=== PATIENT | male | born 1950 | race Caucasian/White ===

== ENCOUNTER 2016-09-15 06:53 | Day surgery (SDC) | payer OTHER ==
[~2016-09-15] VITALS: Ht 172.7 cm; Wt 91.7 kg
[~2016-09-15 06:53] MED LIST: ASPI-99 PO; CIPR500T4 PO; CLOP75 PO; HYDR-3533 PO; LISI-363 PO; NOVORP2 SQ; PREV30CA36 PO; TAMS0.4C67 PO; TOPR100T15 PO; ZOCO40TA PO
[2016-09-15 07:35] VITALS: BP 134/71; PULSE 64; RESP 18; TEMP 98.2; O2SAT 97
[2016-09-15 07:47] LABS: AUTOMATED NEUTROPHIL # 6.3 TH/MM3 (1.8-7.7); BASOPHIL % 0.2 % (0.0-2.0); EOSINOPHIL # 0.3 TH/MM3 (0-0.4); EOSINOPHIL % 3.1 % (0.0-4.0); HEMATOCRIT 46.6 % (39.0-51.0); HEMO FLAGS DIFF FINAL; LYMPHOCYTE # 1.8 TH/MM3 (1.0-4.8); MEAN CELL VOLUME 90.3 FL (80.0-100.0); MEAN CORPUSCULAR HEMOGLOBIN 29.6 PG (27.0-34.0); MEAN CORPUSCULAR HGB CONC 32.8 % (32.0-36.0); MONO % 11.7 % (0.0-8.0); PLATELET COUNT 204 TH/MM3 (150-450); RED BLOOD COUNT 5.16 MIL/MM3 (4.50-5.90); RED CELL DISTRIBUTION WIDTH 15.2 % (11.6-17.2); WHITE BLOOD COUNT 9.5 TH/MM3 (4.0-11.0)
[2016-09-15] MEDS ORDERED: RANI150T PO (07:50)
[2016-09-15] MEDS ORDERED: ATOR40TA16 PO (07:50)
[2016-09-15] MEDS ORDERED: LISI20TA3 PO (07:50)
[2016-09-15] MEDS ORDERED: PLAV75TA29 PO (07:50)
[2016-09-15] MEDS ORDERED: NOVO7030P2 SQ (07:50)
[2016-09-15] MEDS ORDERED: METO100T PO (07:50)
[2016-09-15] MEDS ORDERED: ASPI81TA5 PO (07:50)
[2016-09-15] MEDS ORDERED: FENO160T PO (07:50)
[2016-09-15 07:57] LABS: APTT (PATIENT) 25.4 SEC (24.3-30.1); INTERNATIONAL NORMALIZED RATIO 0.9 RATIO
[2016-09-15] MEDS ORDERED: diphenhydrAMINE HCL 50 MG CAP ONE (08:01)
[2016-09-15 08:08] LABS: POTASSIUM 4.3 MEQ/L (3.5-5.1)
[2016-09-15] MEDS ORDERED: HEPARIN-NS/PF INJ 500 ML ONE (08:21)
[2016-09-15] MEDS ORDERED: MIDAZOLAM HCL 2 MG/2 ML VIAL ONE (08:22)
[2016-09-15] MEDS ORDERED: diphenhydrAMINE HCL 50 MG CAP PO SCH (08:30)
[2016-09-15] MEDS ORDERED: NS 1000P @30 MLS/HR (KVO) IV SCH (08:30)
[2016-09-15] MEDS ORDERED: IOHEXOL 350 MG/ML 50 ML BTL (for Cath Lab) OTHER ONE (08:56)
[2016-09-15] MEDS ORDERED: HEPARIN SODIUM - IV 10,000 UNITS/10 ML VIAL ONE (09:29)
--- NOTE | 2016-09-15 10:01 | CATHPROC ---
[employer] HIS Report Study Information Study Number Admission Scheduled Start Study Start [id number] Sep 15 2016 6:53AM 09/15/2016 Sep 15 2016 8:19AM [place] Service Cardiac Catheterization Admit Source Facility Department Other [facility] - [facility] Physician and Clinical Staff Initial MD Puckett, Yunior [employer] Driver Carlton RN, Ernst RecordKarime Reynoso,RT(R) (BS) Scrub Jose Machado RCIS(BS) Procedures Performed Procedure Location (Site) Vessel Name Coronary Angiograms LCA Left Coronary Coronary Angiograms RCA Right Coronary Wire insertion Fem Art (right) Femoral Art Equipment Time Hardware Developer Description Size Mfg Part Number Used/Scraped [id number] 08:20 MANCER[employer] [place] SWAN NO CATHETER FR 7 Used *[id number] TRANSDUCER, TRUWAVE [id number] 08:20 MANC[employer] [place] * Used W/STOCKCOCK *[id number] TRANSDUCER, TRUWAVE [id number] 08:20 MANC[employer] [place] * Used W/STOCKCOCK *[id number] 09:41 CARD[employer] MEDICAL VASCADE, FR6 CLOSURE SYSTEM FR 6\7 Used *[id number] 09:44 C[employer] MEDICAL VASCADE, FR6 CLOSURE SYSTEM FR 6\7 Used *[id number]- INTRODUCER SET, 08:20 [employer] FR 5 SC-NT-U-SST Used MICROPUNCTURE, STIFFENED *[id number] 534-545T *[id number] 534-545T *[id number] 534-546T *[id number] 534-520T *[id number] 534-521T *[id number] WIRE, AMPLATZ SUPER STIFF 09:17 [employer] .035 37825 *[id number] Used STRT [id number] 08:20 [employer] INDUSTRIES PACK, CCL CUSTOM * Used *[id number] 08:20 [employer] MEDICAL WIRE, 3MMJ .035 180CM 180CM Used *[id number] 08:20 NAMIC MANIFOLD, 2 PORT * Used *[id number] 08:20 NAMIC MANIFOLD, 4 PORT * Used *[id number] 08:20 [employer] OMNIPAQUE, 350 MG, 150ML 150ML [id number] Used [id number] 08:20 ROD [employer] BLANKET,WARM AIR CCL * Used *[id number] 08:20 TERUMO MEDICAL SHEATH, FR5 TERUMO (10CM) FR 5 [id number] Used 09:24 [employer]UM[employer] MEDICAL SHEATH, FR6 TERUMO (10CM) FR 6 [id number] Used 08:20 TERUMO MEDICAL SHEATH, FR7 TERUMO (10CM) FR 7 [id number] Used 09:36 [employer] PIGTAIL DUAL LUMEN CATHETER FR 6 5577 *[id number] Used Equipment Model, Serial, Lot Number and Expiration Data Description Model Number Serial Number Lot Number Expiration Date WIRE, AMPLATZ SUPER STIFF STRT [id number] 11-06-2018 History: Current Medications Medication Dosage/Unit Route Frequency Last Date/Time Taken Statins (any) Beta North ASA PLAVIX History: Allergies Allergy Reaction *MDRO Multi-Drug Resistant Organism Clindamycin NOT AVAILABLE -ENTERED PER MD COLIN History: Risk Factors Family History of Hypertension Dyslipidemia Previous [place] Previous Heart Failure Premature CAD Yes Yes No Yes No Prior Valve Prior PCI Prior PCIDate Prior CABG Surgery No Yes 11/12/2014 No Cerebrovascular Peripheral Artery Chronic Lung On Dialysis Diabetes Diabetes Therapy Disease Disease Disease No Yes No No Yes Insulin History: Stress Tests Stress or Imaging Studies Performed No History: Other Current Smoker Method Quit Packs a Day Years Used Pack Years No Cigarettes 35 Years Ago 2 20 40 Labs Hgb (g/dl) Hct (%) WBC (l/cumm) Platelets (thousands) 11.60-17.00 35.00-51.00 4.00-11.00 150.00-450.00 15.3 46.6 9.5 204 Glucose (mg/dl) BUN (mg/dl) Creatinine (mg/dl) BUN:Creatinine (1:x) 74.00-106.00 7.00-18.00 0.50-1.30 10.00-20.00 176 35 1.7 20.6 Na (meq/l) K (meq/l) 136.00-145.00 3.50-5.10 137 4.3 INR (PTT:PT) 0.90-1.10 0.9 CPK-MB (ng/ML) 0.50-3.60 Not Drawn Medication Medication Total Dose (Bolus/Oral) Medication Total Dosage/Unit 1% XYLOCAINE 20 mL FENTANYL 100 mcg HEPARIN 2500 units VERSED 2 mg Medications (Bolus/Oral) Medication Time Given Dosage/Unit Administered By Reason VERSED 09/15/2016 8:57:51 AM 2 mg Ernst Vincent RN 2 mg VERSED given in lab by Ernst Vincent RN in Left Antecubital via Peripheral IV. 1% XYLOCAINE 09/15/2016 8:58:43 AM 20 mL Hu-Eleazar, Yunior 20 mL 1% XYLOCAINE given in lab by Italo Yunior in Right Groin via Subcutaneous. FENTANYL 09/15/2016 8:58:46 AM 50 mcg Ernst Vincent RN 50 mcg FENTANYL given in lab by Ernst Vincent RN in Left Antecubital via Peripheral IV. FENTANYL 09/15/2016 9:12:46 AM 50 mcg Carlton BANDA, Ernst 50 mcg FENTANYL given in lab by Ernst Vincent RN in Left Antecubital via Peripheral IV. HEPARIN 09/15/2016 9:30:40 AM 2500 units Ernst Vincent RN 2500 units HEPARIN given in lab by Ernst Vincent RN in Left Antecubital via Peripheral IV. Medication (Drip) Medication Time Given Dosage/Unit Concentration/Unit Diluent (ml) Solution IV Solutions 09/15/2016 8:27:35 AM 0 mL (IV) 500 NaCl .9 IV Solutions given in lab by Ernst Vincent RN in Left Antecubital via Peripheral IV. Pump/Drip Flow = 20 ml/hr using NaCl .9. IV Solutions 09/15/2016 8:45:15 AM 0 mL (IV) 500 NaCl .9 IV Solutions given in lab by Ernst Vincent RN in Left Antecubital via Peripheral IV. Pump/Drip Flow = 175 ml/hr using NaCl .9. Initial Case Assessment Cardiovascular HR Rhythm NIBP Chest Pain 62 reg 139/76 0 Edema Present Skin color Skin None Normal Warm Dry Circulatory - Right Pulses Dorsalis Pedis Femoral 1 2 Scale (0,1,2,3,4,d) Circulatory - Left Pulses Dorsalis Pedis Femoral 1 2 Scale (0,1,2,3,4,d) Circulatory - Lower Extremities Color Lower Right Color Lower Left Normal Normal Neurological State Oriented to time-place- Alert Moves all extremities person Respiration - General Respiration Rate SpO2 (%) (B/min) 12 97 Chronological Log Time Study Chronological Log 8:27:15 Patient arrived via Bed. 8:27:16 Patient Name, D.O.B, / Armband Verified By R.N. 8:27:17 Consent signed by the physician and the patient and verified by the Right Of [facility] Man staff. 8:27:17 Pre-op and post- op instructions given; patient acknowledges understanding of instructions. 8:27:19 Verbal Stimulation=2 Physical Stimulation=2 Airway=2 Respiration=2 TOTAL=8. (0=absent, 1=li mited, 2=present) 8:27:23 Presedation assessment performed by Right Of Way Man RN. 8::27 Patient has been NPO for More than 6Hrs. 8:27:29 Skin Breakdown none per pt 8:27:32 Patient Warmer Placed on the Table. 8:27:34 [employer] [employer] Protected 8:27:34 A # 20 IV was noted in the Antecubital (left). Grade = 0 IV Solutions given in lab by Ernst Vincent RN in Left Antecubital via Peripheral IV. Pump/Drip F low = 20 ml/hr using NaCl 8:27:35 .9. 8:27:36 History and physical on the chart or being dictated. Assessment: Initial Case, HR=62 BPM, Rhythm=reg, IJAW=265/76 mmhg, Chest Pain=0, Edema=None, Col or=Normal, Skin = Warm, Dry Right Pulses: Meng Ped=1, Femoral=2 Left Pulses: Meng Ped=1, Femoral=2 8:27:38 Lower Right Extremities: Color=Normal Lower Left Extremities: Color=Normal Neurological: State=Alert, Ox3, KEANE Respiration: Resp=12 B/min, SpO2=97 % Vitals capture started with the following parameters, Patient=Adult, Interval=5 min, Initial Pre gdxxx=778 mmHg, 8:34:47 Deflation Rate=5 mmHg 8:35:11 Reference ECG taken 8:36:01 HR=62 bpm, HHGV=695/76 mmhg, SpO2=97.0 %, Resp=9 B/min, Pain=0, Vane=10, Chi=2 8:40:17 HR=62 bpm, OHII=093/80 mmhg, SpO2=97.0 %, Resp=11 B/min, Pain=0, Vane=10, Chi=2 8:41:21 Bilateral groins prepped with 2% chlorhexidine, and with a 3 min. waiting time. IV Solutions given in lab by Ernst Vincent RN in Left Antecubital via Peripheral IV. Pump/Drip Fl ow = 175 ml/hr using 8:45:15 NaCl .9. 8:45:20 HR=62 bpm, MGBM=472/76 mmhg, SpO2=97.0 %, Resp=6 B/min, Pain=0, Vane=10, Chi=2 8:46:01 paged 8:46:41 Pressure channel 1 zeroed. 8:47:04 MD responded 8:48:39 MD arrived 8:48:51 Pressure channel 2 zeroed. 8:50:21 HR=62 bpm, POBE=079/79 mmhg, SpO2=97.0 %, Resp=7 B/min, Pain=0, Vane=10, Chi=2 8:55:22 HR=62 bpm, FGGX=585/73 mmhg, SpO2=96.0 %, Resp=14 B/min, Pain=0, Vane=10, Chi=2 Time Out. Correct patient, correct procedure,correct physician, power injector not loaded with c ontrast with surgical 8:55:45 team present. Time Out Concurred by , individual staff in procedure 8:56:00 Case Start 8:57:51 2 mg VERSED given in lab by Ernst Vincent RN in Left Antecubital via Peripheral IV. 8:58:43 20 mL 1% XYLOCAINE given in lab by Yunior Puckett in Right Groin via Subcutaneous. 8:58:46 50 mcg FENTANYL given in lab by Ernst Vincent RN in Left Antecubital via Peripheral IV. 9:00:21 HR=67 bpm, LPOA=034/74 mmhg, SpO2=94.0 %, Resp=12 B/min, Pain=0, Vane=10, Chi=2 9:02:13 Access site was Right Femoral Artery. A INTRODUCER SET, MICROPUNCTURE, STIFFENED FR 5 was advanced into the Fem Art (right) using the 9:02:20 Percutaneous technique. A SHEATH, FR5 TERUMO (10CM) FR 5 was exchanged in the Fem Art (right). This was necessary in ord er to 9:02:44 accomodate a larger catheter. 9:03:25 Access site was Right Femoral Vein. A INTRODUCER SET, MICROPUNCTURE, STIFFENED FR 5 was advanced into the Fem Art (right) using the 9:03:32 Percutaneous technique. A SHEATH, FR7 TERUMO (10CM) FR 7 was exchanged in the Fem Vein (right). This was necessary in or michael to 9:03:37 accomodate a larger catheter. 9:03:55 A SWAN NO CATHETER FR 7 was inserted via Fem Vein (right) 9:05:27 HR=58 bpm, ATUD=311/65 mmhg, SpO2=91.0 %, Resp=18 B/min, Pain=0, Vane=10, Chi=2 Recorded Pressure: PCW, HR=66, Condition=Condition 1 9:07:14 (Pulmonary Capillary Wedge) PCW 1614/13 9:08:31 Saturation: Site=PA (Pulmonary Artery) , O2=77.9 %, Hgb=15.3 gm/dl, Condition=Condition 1. U sed in calculation. Recorded Pressure: MPA, HR=65, Condition=Condition 1 9:08:50 (Main Pulmonary Artery) MPA 3020 Recorded Pressure: RV, HR=65, Condition=Condition 1 9:09:24 (Right Ventricle) [place] [address] Recorded Pressure: RA, HR=69, Condition=Condition 1 9:09:43 (Right Atrium) RA 9:10:28 HR=63 bpm, CEWI=777/73 mmhg, SpO2=97.0 %, Resp=15 B/min, Pain=0, Vane=10, Chi=2 9:10:30 Saturation: Site=RA (Right Atrium) , O2=80.9 %, Hgb=15.3 gm/dl, Condition=Condition 1. Used in calculation. 9:11:00 Saturation: Site=FA (Femoral Artery) , O2=97.8 %, Hgb=15.3 gm/dl, Condition=Condition 1. Use d in calculation. 9:11:09 [place] No Catheter Removed A JR 4.0 INFINITI CATHETER FR 5 was advanced over a wire. OMNIPAQUE, 350 MG, 150ML 150ML was use d for 9:11:40 injections. 9:12:46 50 mcg FENTANYL given in lab by Ernst Vincent RN in Left Antecubital via Peripheral IV. Recorded Pressure: Ao, HR=65, Condition=Condition 1 9:13:05 (Aorta) Ao 114/67/86 9:13:33 The RCA was injected and visualized at various angles. OMNIPAQUE, 350 MG, 150ML 150ML used. 9:14:37 Catheter was removed A JL 4.0 INFINITI CATHETER FR 5 was advanced over a wire. OMNIPAQUE, 350 MG, 150ML 150ML was use d for 9:14:39 injections. 9:15:27 HR=67 bpm, UEFA=199/77 mmhg, SpO2=96.0 %, Resp=14 B/min, Pain=0, Vane=10, Chi=2 9:16:51 The LCA was injected and visualized at various angles. OMNIPAQUE, 350 MG, 150ML 150ML used. 9:19:27 A WIRE, 3MMJ .035 180CM 180CM was inserted via Fem Art (right). 9:19:57 Wire removed 9:20:22 HR=69 bpm, SYCH=108/79 mmhg, SpO2=94.0 %, Resp=9 B/min, Pain=0, Vane=10, Chi=2 9:21:39 Catheter was removed A SHEATH, FR6 TERUMO (10CM) FR 6 was exchanged in the Fem Art (right). This was necessary in ord er to 9:24:51 accomodate a larger catheter. 9:25:21 HR=71 bpm, OZEK=439/69 mmhg, SpO2=97.0 %, Resp=12 B/min, Pain=0, Vane=10, Chi=2 A AL 1 INFINITI CATHETER FR 5 was advanced over a wire. OMNIPAQUE, 350 MG, 150ML 150ML was used for 9:25:23 injections. 9:26:32 A WIRE, AMPLATZ SUPER STIFF STRT .035 was inserted via Fem Art (right). 9:30:26 HR=67 bpm, FGYU=202/64 mmhg, SpO2=96.0 %, Resp=13 B/min, Pain=0, Vane=10, Chi=2 9:30:29 After removing the current catheter a catheter was advanced over a WIRE, AMPLATZ SUPER STIFF STRT .035. 9:30:40 2500 units HEPARIN given in lab by Ernst Vincent RN in Left Antecubital via Peripheral IV. A AL 2 INFINITI CATHETER FR 5 was advanced over a wire. OMNIPAQUE, 350 MG, 150ML 150ML was used for 9:31:11 injections. 9:35:19 HR=67 bpm, GUZY=303/61 mmhg, SpO2=96.0 %, Resp=14 B/min, Pain=0, Vane=10, Hci=2 9:35:20 Catheter was removed A PIGTAIL DUAL LUMEN CATHETER FR 6 was advanced over a wire. OMNIPAQUE, 350 MG, 150ML 150ML was used for 9:36:12 injections. 9:37:06 Wire removed Recorded Pressure: LV, Ao, HR=68, Condition=Condition 1 9:39:20 (Left Ventricle) LV 168/11/19, (Aorta) Ao 119/67/87 9:39:46 Catheter was removed 9:40:13 Activated Clotting Time Drawn 9:40:59 HR=68 bpm, KOVA=313/77 mmhg, SpO2=97.0 %, Resp=13 B/min, Pain=0, Vane=10, Chi=2 9:41:45 An injection in the Fem Art (right) was made through the SHEATH, FR6 TERUMO (10CM) FR 6. 9:42:06 VASCADE, FR6 CLOSURE SYSTEM FR 6\7 placement in the Fem Vein (right) 9:43:12 VASCADE, FR6 CLOSURE SYSTEM FR 6\7 placement in the Fem Art (right) 9:43:44 ACT (Normal Range 90-180) = 176 9:45:27 HR=65 bpm, ROBM=757/79 mmhg, SpO2=96.0 %, Resp=12 B/min, Pain=0, Vane=10, Chi=2 9:48:14 Case End 9:48:31 Catheter(s) removed without difficulty 9:48:36 No case complications noted. 9:48:37 Cine recording checked. 9:48:47 Bedside Report will be given. 9:49:06 Implantable Device card placed in patient's chart. 9:49:30 Contrast Scanned 9:49:32 A Left and Right Heart Cath was performed. 9:49:41 Sterile dressing applied to site 9:50:28 ELJM=766/81 mmhg, Pain=0, Vane=10, Chi=2 9:50:35 Vitals capture stopped. 9:53:42 Patient moved to [facility] End Study - Contrast Media Used In Study Contrast Total Opened (mL) Total Used (mL) Total Wasted (mL) Omnipaque 19 19 0 End Study - Maximum Contrast Load Max Contrast Load (mL) 270.1 End Study - Radiation Exposure Fluoro Time (minutes) 14.1 End Study - Patient Disposition Complications Transferred To Interventional Outcome No Right Of Way Man Holding No attempt made
[2016-09-15] MEDS ORDERED: BACITRACIN OINT 0.9 GM PKT TOP ONE (10:15)
[2016-09-15] MEDS ORDERED: ATROPINE SULFATE 1 MG/ML VIAL IV PRN (10:15)
[2016-09-15] MEDS ORDERED: MISC INFORMATION XX ONE (10:15)
[2016-09-15] MEDS ORDERED: LIDOCAINE HCL 1% 50 ML VIAL INFIL PRN (10:15)
[2016-09-15] MEDS ORDERED: ONDANSETRON HCL 4 MG/2 ML VIAL IV PRN (10:15)
[2016-09-15] MEDS ORDERED: NITROGLYCERIN 2% OINT 1 GM PACKET ONE (10:21)
--- NOTE | 2016-09-15 10:51 | EKG ---
Date Performed: 09/15/2016 Time Performed: 07:38:58 PTAGE: 66 years EKG: Sinus rhythm Inferior infarct - age undetermined Lateral ST-T changes are nonspecific Abnormal ECG PREVIOUS TRACING : 08/26/2012 15.46 DOCTOR: John Medina Interpretating Date/Time 09/15/2016 10:50:13
[2016-09-15] MEDS ORDERED: SODIUM CHLOR 0.9% 1000 ML INJ 1,000 ML IV SCH (11:00)
[2016-09-15] MEDS ORDERED: NITROGLYCERIN 2% OINT 1 GM PACKET TOPICAL ONE (11:30)
--- NOTE | 2016-09-15 11:46 | MA ---
cc: LORRIE ABRAHAM DATE: September 15, 2016 PROCEDURE PERFORMED 1. Left heart catheterization. 2. Selective right and left coronary angiography. 3. Simultaneous aortic LV hemodynamics. 4. Right heart cath. INDICATION Severe aortic stenosis, preoperative evaluation. APPROACH Right transfemoral. DESCRIPTION OF PROCEDURE Consent was signed. The patient was prepped and draped in sterile fashion using 1% lidocaine for local anesthesia and a micropuncture kit a 6-Brazilian sheath was inserted into the right common femoral artery and the 8-Brazilian sheath in the right femoral vein. Selective right common femoral artery angiography was performed to confirm position of the sheath. Then we fluted the 7-Brazilian [place] into wedge, this was followed by pressure recordings, in wedge main pulmonary artery and right ventricle and right atrium with blood samples to calculate cardiac output. Then we performed selective right and left coronary angiography with a JR-4 and a JL-4 diagnostic catheters. Angiography was performed in multiple views. Then a 6-Brazilian AL-2 over a straight Amplatz wire was used to cross the valve. The Amplatz catheter was exchanged to a dual lumen pigtail catheter for a simultaneous measurements of aortic and left ventricular pressures. The patient tolerated the procedure well without complications. Estimated blood loss less than 30 ccs. Total contrast used 21 ccs. The right venous and arterial access site was closed with Vascade device. RESULTS Right heart cath wedge mean pressure was 13, main pulmonary artery 30/14 with a mean of 20. Right ventricular pressure is 35/9 with a mean of 11. Right atrial pressure is 12/9 with a mean of 9. The calculated cardiac output was 6.2. Left ventricular pressure was 168/11 with a mean of 19. The aortic pressure was 119/67 with a mean of 82. The main gradient across the aortic valve was 48. The calculated valve area using Hakki equation was 0.9. ANGIOGRAPHY 1. Right coronary artery is a dominant vessel giving off the PDA. It has mild luminal irregularities and calcification in the mid and distal portion. There is a 40% lesion in the mid segment of the right coronary artery. The PDA is patent with CONNER III flow and nonobstructive coronary artery disease. 2. Left main. It is mildly calcified, very short left main however patent. 3. Left circumflex artery has minimal irregularities and calcified. It has a small first OM and a second OM which are both patent. The circumflex has a 40% lesion of the proximal segment. 4. LAD. The LAD is calcified in its proximal portion, is a transapical vessel giving off one diagonal which is patent with nonobstructive coronary artery disease. RECOMMENDATIONS The patient has severe asymptomatic aortic stenosis with minimal coronary artery disease. Given the patient is asymptomatic at this moment we will follow up with him in 1 month in the [facility] where he will be seen by CT surgery for further discussion and possible mini AVR in the near future. MD TONI Mckoy/MUSA /10:06 AM /11:20 AM PRASHANT
--- NOTE | 2016-09-15 11:46 | RADRPT ---
EXAM DATE/TIME: 09/15/2016 10:50 [facility] COMPARISON: No previous studies available for comparison. INDICATIONS : Cerebrovascular accident. MEDICAL HISTORY : Myocardial infarction. Hypercholesterolemia. CVA. CAD. Heart murmur. GERD. HTN. Stage III chronic k idney disease. Diabetes. Melanoma. MRSA. SURGICAL HISTORY : Bilateral lasik eye surgery. Percutaneous transluminal coronary angioplasty. Right shoulder. Left kne e. Melanoma removed from back of head. ENCOUNTER: Initial ACUITY: 1 day PAIN SCORE: 0/10 LOCATION: Bilateral neck PEAK SYSTOLIC VELOCITIES (cm/sec): ICA/CCA RATIO: Right: 0.9 Left: 1.1 ICA: Right: 70 Left: 69 CCA: Right: 81 Left: 63 ECA: Right: 93 Left: 70 VERTEBRAL: Right: 33 antegrade Left: 49 antegrade Elevated flow velocities and ICA/CCA ratios have been found to correlate with increased degrees of vessel stenosis, calculated as percentage of diameter relative to a normal segment of distal ICA/CCA FINDINGS: RIGHT CAROTID: There is no evidence for a hemodynamically significant carotid stenosis. Minimal int imal hyperplasia is present with scattered calcific plaque. LEFT CAROTID: There is no evidence for a hemodynamically significant carotid stenosis. Minimal inti mal hyperplasia is present with scattered calcific plaque. VERTEBRAL ARTERIES: Flow is antegrade in both vertebral arteries. MISCELLANEOUS: There are no ancillary masses or adenopathy. CONCLUSION: Negative examination for a hemodynamically significant carotid stenosis. Anders Cuba MD FACR Anders Cuba MD FACR on September 15, 2016 at 11:42 Board Certified Radiologist. This report was verified electronically.
--- NOTE | 2016-09-15 13:23 | PD.CAR.PN ---
CVT Progress Note Subjective/Hospital Course: sts data discussed with pt RISK SCORES About the STS Risk Calculator Procedure: AV Replacement Risk of Mortality: 1.85% Morbidity or Mortality: 19.726% Long Length of Stay: 8.166% Short Length of Stay: 32.324% Permanent Stroke: 2.086% Prolonged Ventilation: 10.632% DSW Infection: 0.293% Renal Failure: 6.233% Reoperation: 8.329% Objective: Vital Signs Date Time Temp Pulse Resp B/P Pulse Ox O2 Delivery O2 Flow Rate FiO2 09/15/16 10:38 99 Room Air 09/15/16 07:35 98.2 64 18 134/71 97 Labs: Laboratory Tests Test 09/15/16 07:30 White Blood Count 9.5 TH/MM3 (4.0-11.0) Red Blood Count 5.16 MIL/MM3 (4.50-5.90) Hemoglobin 15.3 GM/DL (13.0-17.0) Hematocrit 46.6 % (39.0-51.0) Mean Corpuscular Volume 90.3 FL (80.0-100.0) Mean Corpuscular Hemoglobin 29.6 PG (27.0-34.0) Mean Corpuscular Hemoglobin 32.8 % Concent (32.0-36.0) Red Cell Distribution Width 15.2 % (11.6-17.2) Platelet Count 204 TH/MM3 (150-450) Mean Platelet Volume 8.2 FL (7.0-11.0) Neutrophils (%) (Auto) 66.0 % (16.0-70.0) Lymphocytes (%) (Auto) 19.0 % (9.0-44.0) Monocytes (%) (Auto) 11.7 % (0.0-8.0) Eosinophils (%) (Auto) 3.1 % (0.0-4.0) Basophils (%) (Auto) 0.2 % (0.0-2.0) Neutrophils # (Auto) 6.3 TH/MM3 (1.8-7.7) Lymphocytes # (Auto) 1.8 TH/MM3 (1.0-4.8) Monocytes # (Auto) 1.1 TH/MM3 (0-0.9) Eosinophils # (Auto) 0.3 TH/MM3 (0-0.4) Basophils # (Auto) 0.0 TH/MM3 (0-0.2) CBC Comment DIFF FINAL Differential Comment Prothrombin Time 10.0 SEC (9.8-11.6) Prothromb Time International 0.9 RATIO Ratio Activated Partial 25.4 SEC Thromboplast Time (24.3-30.1) Sodium Level 137 MEQ/L (136-145) Potassium Level 4.3 MEQ/L (3.5-5.1) Chloride Level 105 MEQ/L (98-107) Carbon Dioxide Level 24.0 MEQ/L (21.0-32.0) Anion Gap 8 MEQ/L (5-15) Blood Urea Nitrogen 35 MG/DL (7-18) Creatinine 1.73 MG/DL (0.60-1.30) Estimat Glomerular Filtration 39 ML/MIN (>89) Rate Random Glucose 176 MG/DL (74-106) Calcium Level 9.7 MG/DL (8.5-10.1) Result Diagram: 09/15/16 0730 09/15/16 0730 Dotty Barrow Sep 15, 2016 13:23
--- NOTE | 2016-09-15 14:39 | RADRPT ---
EXAM DATE/TIME: 09/15/2016 12:30 [facility] COMPARISON: CHEST PA & LAT, August 26, 2012, 16:11. INDICATIONS : Pre op aortic valve replacement. MEDICAL HISTORY : Myocardial infarction. Hypercholesterolemia. CVA. CAD. Heart murmur. GERD.HTN. Stage III chronic kidn ey disease. Diabetes. Melanoma. MRSA. SURGICAL HISTORY : Bilateral lasik eye surgery. Percutaneous transluminal coronary angioplasty. Right shoulder. Left kne e. Melanoma removed from back of head. ENCOUNTER: Initial ACUITY: 1 day PAIN SCORE: 0/10 LOCATION: chest FINDINGS: A single view of the chest demonstrates the lungs to be symmetrically aerated without evidence of mas s, infiltrate or effusion. The cardiomediastinal contours are unremarkable. Osseous structures are intact. CONCLUSION: No acute disease. No significant change has occurred. Leonid Hamilton MD on September 15, 2016 at 14:36 Board Certified Radiologist. This report was verified electronically.
--- NOTE | 2016-09-15 15:12 | MB ---
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 His primary care physician is Dr. Leandro Olsen. He was seen for follow-up. Primary care requested cardiac evaluation. The patient has a history of coronary artery disease with prior MS 25 years ago in [facility] where he had angioplasty x2. He was found to have a heart murmur and they did an echocardiogram on him which showed aortic peak gradient of 87 mm, mean gradient of 50, consistent with severe stenosis, EF 45-50%, and grade 1 diastolic dysfunction. We were consulted to evaluate for aortic valve replacement. His mortality risk was low. His frailty risk was low. So he has been evaluated for traditional aortic valve replacement. At this time he has been asymptomatic. PAST MEDICAL HISTORY 1. Aortic stenosis as above. 2. History of Sequeira's palsy. 3. Coronary artery disease with prior MS in 1989, PCI with repeat PCI one year later. He had an apparent stress test in 2012 which showed a fixed area in the lateral and inferior wall, questionable attenuation. 4. History of some mild aortic stenosis by echocardiogram in August 2015. 5. Remote history of CVA approximately 20 years ago which sounds more like a TIA. It lasted over a 24-hour period with no residual. 6. Colon polyps. 7. Diabetes mellitus type 2. 8. Esophageal reflux. 9. Hyperlipidemia. 10.Hypertension. 11.History of melanoma. 12.Obesity. PAST SURGICAL HISTORY 1. Prior PCI. 2. Right shoulder surgery. 3. Left knee surgery. ALLERGIES He is allergic to CLINDAMYCIN. MEDICATIONS Home meds include: 1. Aspirin 81, daily. 2. Atorvastatin 40, daily. 3. Fenofibrate 160, daily. 4. Lisinopril/hydrochlorothiazide 20/25, p.o. daily. 5. Metoprolol 100, daily. 6. NovoLog insulin sliding scale. 7. Plavix 75, daily. 8. Zantac 150, q.h.s. FAMILY HISTORY Mother at age 55 from coronary artery disease. She had an MS. Father in his late 70s from lung cancer. SOCIAL HISTORY The patient is a . Rare alcohol. Smoked for approximately 15 years two packs per day, quit 35 years ago. No illicit drugs. 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 Has one child. REVIEW OF SYSTEMS GENERAL: No night sweats, fever, heat or cold intolerance. SKIN: No psoriasis, itching or hives. HEENT: No blurred vision or hearing loss. RESPIRATORY: No shortness of breath. No pleuritic chest discomfort. CARDIOVASCULAR: No chest pain, however, he does describe sometimes after eating a large heavy meal with greasy foods he gets some left shoulder discomfort. GASTROINTESTINAL: No diarrhea, no vomiting, no constipation. GENITOURINARY: No burning, frequency, urgency. AUTO WINDER: History of TIA, remote. INTEGUMENTARY: No lesions or rashes. PHYSICAL EXAMINATION VITAL SIGNS: Blood pressure 130/70, heart rate 72, on room air. GENERAL: The patient is awake, alert, in no acute distress. HEENT: Head is normocephalic, atraumatic. Pupils are equal and reactive. Oral mucosa is pink and moist. Good dentition. NECK: Supple. No JVD. HEART: Heart sounds S1, S2. Regular rate and rhythm. There is a grade 2/6 systolic murmur best noted at the left sternal border. LUNGS: Clear to auscultation. No wheezes, rales or rhonchi. ABDOMEN: Soft, nontender. No masses or organomegaly. EXTREMITIES: No cyanosis, clubbing or edema. He does have a pressure dressing to his right groin area. LABORATORY INR is 0.9. Sodium 137, potassium 4.3, BUN 35, creatinine 1.73. Hemoglobin 15, hematocrit 46, white cell count 9.5, platelet count 204. EKG EKG shows sinus rhythm with some nonspecific ST changes in the lateral wall. IMPRESSION AND PLAN This is a very pleasant 66-year-old male with severe aortic stenosis, however, asymptomatic. The cardiac films will be evaluated by Dr. Kush Byrd. The patient's left main had 30% stenosis, the RCA 40%. Cardiac output was 6.2, wedge pressure 13. STS was calculated at 2.28. The patient will be evaluated in the office by Dr. Byrd and followed closely with Dr. Hu in regards to our valve clinic and planning for surgical intervention will be at that time. Dictated by: MICHAEL Weir Kush TALAMANTES /1:37 PM /3:15 PM
--- NOTE | 2016-09-16 18:46 | EKG ---
Date Performed: 09/15/2016 Time Performed: 10:24:18 PTAGE: 66 years EKG: Possible ectopic atrial rhythm Inferior infarct - age undetermined Lateral ST-T changes are nonspecific Early R wave transition, possibly consistent with posterior wall involvement in the infe rior wall infarct. Compared to previous tracing, there's been essentially resolution of the lateral S T segment changes, but otherwise no significant serial change Abnormal ECG PREVIOUS TRACING : 09/15/2016 07.38 DOCTOR: Zuleima Krause Interpretating Date/Time 09/16/2016 18:45:27
--- NOTE | 2016-09-21 10:20 | RSPPFT ---
DATE OF PROCEDURE: 09/15/16 COMMENTS: VOLUMES DYNAMIC: FVC and FEV1 mildly reduced. FLOWS: FEV1% and FEF 25-75 normal. IMPRESSION: Probable mild restrictive ventilatory defect with no significant airways obstruction. Full lung volumes may be helpful if clinically indicated.
== END 2016-09-15 15:00 | disposition home or self-care (01) ==
LOC: HDIC 06:53 → HDOC 06:53
PROVIDERS: ATTEND Radiology Vascular & Interventional Radiology
DX: I35.0 Nonrheumatic aortic (valve) stenosis (principal); I25.10 Atherosclerotic heart disease of native coronary artery without angina pectoris; I13.10 Hypertensive heart and chronic kidney disease without heart failure, with stage 1 through stage 4 chronic kidney disease, or unspecified chronic kidney disease; N18.3 Chronic kidney disease, stage 3 (moderate); E11.22 Type 2 diabetes mellitus with diabetic chronic kidney disease; E78.5 Hyperlipidemia, unspecified; I25.2 Old myocardial infarction; K21.9 Gastro-esophageal reflux disease without esophagitis; E66.9 Obesity, unspecified; E78.00 Pure hypercholesterolemia, unspecified; I65.29 Occlusion and stenosis of unspecified carotid artery; I67.9 Cerebrovascular disease, unspecified; Z79.4 Long term (current) use of insulin; Z85.820 Personal history of malignant melanoma of skin; Z86.73 Personal history of transient ischemic attack (TIA), and cerebral infarction without residual deficits; Z86.010 Personal history of colon polyps; Z01.810 Encounter for preprocedural cardiovascular examination; Z01.818 Encounter for other preprocedural examination
CPT/HCPCS: 71010; 80048; 85002; 85025; 85610; 85730; 93005; 93456; 93880; 94010; C1760; C1769; C1893; G0269; J1644; J2250; J3010; Q0163; Q9967

== ENCOUNTER → 2017-01-24 | Outpatient (CLI) | payer OTHER ==
[~2017-01-24] MED LIST changes: -ASPI-99 PO; +ATOR40TA16 PO; -CIPR500T4 PO; -CLOP75 PO; +ECASA81 PO; +FENO160T PO; -HYDR-3533 PO; +IOHEXOL 350 MG/ML 10 ML VIAL (for RAD DIAG) IVCONTRAST ONE; -LISI-363 PO; +LISI20TA3 PO; +METO100T PO; +NOVO7030P2 SQ; -NOVORP2 SQ; +PLAV75TA29 PO; -PREV30CA36 PO; +RANI150T PO; -TAMS0.4C67 PO; -TOPR100T15 PO; -ZOCO40TA PO
--- NOTE | 2017-01-24 12:07 | RADRPT ---
EXAM DATE/TIME: 01/24/2017 10:00 [facility] COMPARISON: No previous studies available for comparison. INDICATIONS : Aortic valve stenosis. IV CONTRAST: 95 cc Omnipaque 350 (iohexol) IV RADIATION DOSE: 12.37 CTDIvol (mGy) MEDICAL HISTORY : Cardiovascular disease. SURGICAL HISTORY : Angioplasty x 2 ENCOUNTER: Initial ACUITY: 1 day PAIN SCALE: 0/10 LOCATION: chest TECHNIQUE: Volumetric scanning was performed using a multi-row detector CT scanner. The data was post processed with a variety of visualization algorithms including full volume maximum intensity projection, multi -planar sliding thin slab reformation, curved planar reformation, and surface rendering techniques. Using automated exposure control and adjustment of the mA and/or kV according to patient size, radiat ion dose was kept as low as reasonably achievable to obtain optimal diagnostic quality images. DIC OM format image data is available electronically for review and comparison. FINDINGS: CARDIAC: The coronaries are very small and diminutive. There is enlarged plaque mid left main. Large plaque is seen the origin of the right coronary. Scattered plaque is seen throughout the right coronary into the PDA. AORTIC ROOT/VALVE: 3 valve culture identified extensive calcification present. THORACIC AORTA: There is mild dilatation of the ascending aorta to 4 mm. The descending aorta is normal in size with scattered very minimal calcific plaque. Origin of the great vessels is normal without significant s tenosis. ABDOMINAL AORTA: Scattered calcific plaque is seen in the descending aorta. The distal aorta measures 1.4 cm. Scatte red soft and hard plaque are seen just below the level of renal arteries. There is no aneurysm. CELIAC ARTERY: Celiac artery is widely patent. SMA: Superior mesenteric artery is widely patent. RIGHT RENAL ARTERY: Right renal artery is widely patent. LEFT RENAL ARTERY: Left renal artery is widely patent. RIGHT COMMON ILIAC: The right common iliac measures 7 mm the scattered plaque in the distal common and proximal external iliac.. The right common femoral at the ligament measures 6 mm. LEFT COMMON ILIAC: Scattered plaque is seen in the common iliac which measures 7 mm. At its narrowest point.. The left common femoral measures 7 mm. THORAX: There are no suspicious lung lesions identified. There is no pericardial effusion. ABDOMEN: The liver, spleen, pancreas and adrenals are unremarkable. There is symmetrical renal function. Par apelvic cysts are seen in the left kidney. Right renal cyst is noted. PELVIS: Scattered diverticuli in sigmoid colon. CONCLUSION: Small iliac vessels and distal aorta. Mild dilatation descending aorta Coronaries are small and diminutive with significant proximal disease. Anders Cuba MD FACR on January 24, 2017 at 11:44 Board Certified Radiologist. This report was verified electronically.
== END ==
LOC: HRAD 08:21
PROVIDERS: ATTEND Thoracic Surgery (Cardiothoracic Vascular Surgery)
DX: I35.0 Nonrheumatic aortic (valve) stenosis (principal)
CPT/HCPCS: 74174; Q9967

== ENCOUNTER 2017-02-10 05:30 | Inpatient (IN) | payer OTHER, MEDICARE ==
[2017-02-10] VITALS (10 sets, daily range): BP systolic 95–134; BP diastolic 48–70; PULSE 62–94; RESP 9–16; TEMP 97.7–98.6; O2SAT 95–98
[~2017-02-10] VITALS: Ht 172.7 cm; Wt 92.5 kg
[~2017-02-10 05:30] MED LIST changes: -IOHEXOL 350 MG/ML 10 ML VIAL (for RAD DIAG) IVCONTRAST ONE
[2017-02-10] MEDS ORDERED: SODIUM CHLORIDE 0.9% FLUSH 10 ML FLUSH IV FLUSH PRN ×3 (06:00→13:00)
[2017-02-10] MEDS ORDERED: DEXTROSE 50% IN WATER 50 ML VIAL(D50) IV PUSH PRN ×2 (06:00→13:00)
[2017-02-10] MEDS ORDERED: INSULIN REGULAR 100 UNITS in NS 100 ML IV PRN (06:00)
[2017-02-10] MEDS ORDERED: CHLORHEXIDINE GLUCONATE 2 % 1 PACK (2 CLOTHS) TOPICAL PRN (06:15)
[2017-02-10] MEDS ORDERED: LACTATED RINGER'S 1000 ML IV PRN (06:15)
[2017-02-10] MEDS ORDERED: ceFAZolin 2 GM PREMIX 50 ML IV SCH (06:15)
[2017-02-10] MEDS ORDERED: POVIDONE IODINE 5% (ANTISEPSIS KIT) 4 APPLICATIONS EACH NARE PRN (06:15)
[2017-02-10] MEDS ORDERED: CEFAZOLIN 500 MG in NS IRR BTL 500 ML IRRIGATION SCH (06:15)
[2017-02-10] MEDS ORDERED: METOPROLOL TARTRATE 25 MG TAB PO SCH (06:15)
[2017-02-10] MEDS ORDERED: CHLORHEXIDINE GLUCONATE 4% SOLN 120 ML BTL TOPICAL SCH (06:15)
[2017-02-10] MEDS ORDERED: SUGAMMADEX SODIUM 200 MG/2 ML VIAL IV PUSH ONE ×2 (07:06)
[2017-02-10] MEDS ORDERED: DEXMEDETOMIDINE HCL 200 MCG/2 ML VIAL ONE (07:06)
[2017-02-10] MEDS ORDERED: CUSTODIOL HTK IRR SOLN 3,000 ML ONE (07:52)
[2017-02-10] MEDS ORDERED: POTASSIUM CHLORIDE 40 MEQ/20 ML VIAL ONE (07:52)
[2017-02-10] MEDS ORDERED: HEPARIN SODIUM - IV 10,000 UNITS/10 ML VIAL ONE (07:53)
[2017-02-10] MEDS ORDERED: ALBUMIN 25% INJ 50 ML IV ONE (07:53)
[2017-02-10] MEDS ORDERED: HEPARIN SODIUM - SQ 10,000 UNITS/ML VIAL ONE ×2 (07:53→08:28)
[2017-02-10] MEDS ORDERED: SODIUM BICARBONATE 8.4% INJ 150 ML ONE (07:54)
[2017-02-10] MEDS ORDERED: CALCIUM CHLORIDE 10% SOLN 1 GRAM/10 ML SYR ONE (07:54)
[2017-02-10] MEDS ORDERED: MANNITOL INJ 100 ML ONE (07:55)
[2017-02-10] MEDS ORDERED: ceFAZolin 2 GM PREMIX 50 ML ONE (08:28)
[2017-02-10] MEDS ORDERED: BUPIVACAINE/EPINEPHRINE 0.5% PF 30 ML VIAL ONE (08:29)
[2017-02-10] MEDS ORDERED: methylPREDNISolone SOD SUCC 125 MG/2 ML VIAL ONE (08:54)
[2017-02-10] MEDS ORDERED: PROTAMINE SULFATE 250 MG/25 ML VIAL IV ONE (12:00)
[2017-02-10] MEDS ORDERED: SODIUM CHLORID 0.9% 500 ML INJ 500 ML IV ONE (12:00)
[2017-02-10] MEDS ORDERED: MAGNESIUM SULFATE 1 GM/2 ML VIAL IV ONE (12:00)
[2017-02-10] MEDS ORDERED: MIDAZOLAM HCL 2 MG/2 ML VIAL IV ONE (12:00)
[2017-02-10] MEDS ORDERED: SODIUM CHLOR 0.9% 250 ML INJ 250 ML IV ONE (12:00)
[2017-02-10] MEDS ORDERED: DEXTROSE 5% IN WATER 100 ML BAG IV ONE (12:00)
[2017-02-10] MEDS ORDERED: fentaNYL CITRATE 2500 MCG/50 ML VIAL IV ONE (12:00)
[2017-02-10] MEDS ORDERED: PHENYLEPH/NS 1000 MCG/10 ML SYR IV ONE (12:00)
[2017-02-10] MEDS ORDERED: ARTIFICIAL TEARS OPTH OINT 3.5 APPLIC/3.5 GM TUBO EACH EYE ONE (12:00)
[2017-02-10] MEDS ORDERED: PHENYLEPHRINE HCL 10 MG/ML VIAL IV ONE (12:00)
[2017-02-10] MEDS ORDERED: ePHEDrine/NS 25 MG/5 ML SYR IV ONE (12:00)
[2017-02-10] MEDS ORDERED: VECURONIUM BROMIDE 10 MG VIAL IV ONE (12:00)
[2017-02-10] MEDS ORDERED: CARDIOPLEGIC IRR 2,000 ML ONE (12:00)
[2017-02-10] MEDS ORDERED: TRANEXAMIC ACID INJ 1,000 MG/10 ML AMP IV ONE (12:00)
[2017-02-10] MEDS ORDERED: LACTATED RINGER'S 1000 ML INJ 1,000 ML IV ONE (12:00)
[2017-02-10] MEDS ORDERED: NORMOSOL R INJ 1,000 ML IV ONE (12:00)
[2017-02-10] MEDS ORDERED: HEPARIN SODIUM - SQ 10,000 UNITS/ML VIAL OTHER ONE (12:00)
[2017-02-10] MEDS ORDERED: SODIUM CHLOR 0.9% 1000 ML INJ 1,000 ML IV ONE (12:00)
[2017-02-10] MEDS ORDERED: EPINEPHrine HCL (1:1000) 1 MG/ML VIAL IV ONE (12:00)
[2017-02-10] MEDS ORDERED: LACTATED RINGER'S 1000 ML INJ 500 ML IV PRN (12:47)
--- NOTE | 2017-02-10 12:56 | PD.OP ---
cc: Yunior Puckett MD; Renee Caicedo MD Operative Report Date of Surgery: Feb 10, 2017 Preoperative Diagnosis: (1) Diastolic CHF due to valvular disease (2) Aortic stenosis Postoperative Diagnosis: same Procedure: minimally invasive AVR with a 25 Intuity tissue valve Ultrasound-guided percutaneous access left femoral artery and vein with Perclose closure of the artery ZULEIMA Anesthesia: Dr. Nj Surgeon: Renee Caicedo Technical System Analyst(s): Trevin SCHMITT Operation and Findings: Standard monitoring lines and Patel catheter were placed. General anesthesia was induced. The patient was prepped and draped in a sterile fashion. A 6 cm right anterior thoracotomy was performed and the 3rd rib was shingled. An Sumeet retractor was placed followed by a small chest retractor. The pericardium was opened and a pericardial sling was created using interrupted 0 silk sutures. A small 1 cm incision was made at the 6th intercostal space and an LV vent and pericardial suction were placed through this access port. The aorta was dissected posteriorly for crossclamp placement. The left femoral artery and vein were percutaneously accessed using ultrasound guidance. The patient was heparinized for cardiopulmonary bypass. The left femoral artery was cannulated with a 17F [employer] arterial cannula. The left femoral vein was cannulated with a 21 [employer] cannula under ZULEIMA guidance. Three Perclose devices were placed in the artery for later closure. Antegrade Custodiol cardioplegia were employed. The patient was placed on cardiopulmonary bypass. An aortic cross-clamp was applied and the heart was arrested using cold Custodiol cardioplegia delivered through a 14F catheter. The aorta was opened above the sinotubular ridge and the aortic valve was exposed. On opening the aorta, the valve appeared functionally bicuspid with heavy calcification. The valve was resected as well as all annular calcification, sized for a 25 mm Intuity tissue valve which was placed with 3, 2-0 Tycron valve sutures. The valve seated well, and was balloon deployed to 5 elizabet. The aorta was closed with running 4-0 Prolene suture. The patient systemically rewarmed and placed in Trendelenburg position. The heart was vigorously deaired with a clamp on. The clamp was removed, deairing continued. The patient was easily weaned from cardiopulmonary bypass. Decannulation was carried out without incident and both artery was secured with the Perclose sutures. The vein was controlled with manual compression. Protamine was given. There was no adverse reaction. Intraoperative ZULEIMA following the procedure showed a well-seated aortic valve with no perivalvular leak and preserved ventricular function. Wound was checked for hemostasis was obtained using electrocautery. A 32F right pleural chest tube was placed and secured to the skin with a 0 silk suture. The 3rd rib was reapproximated to the sternum with a small plate and screws. The fascia and pectoralis were closed with 0 Vicryl. The subcutaneous tissue was closed using a running 3-0 Monocryl suture. The skin was closed with 4-0 Monocryl. Sterile dressings were placed. At the end of the operation, all sponge, instruments, and needle counts were correct. The patient was transferred to the CVICU in stable condition. Renee Caicedo MD Feb 10, 2017 12:56
[2017-02-10] MEDS ORDERED: ALBUMIN 5% INJ 250 ML IV PRN (13:00)
[2017-02-10] MEDS ORDERED: ACETAMINOPHEN 650 MG SUPP RECTAL PRN (13:00)
[2017-02-10] MEDS ORDERED: POTASSIUM CHLOR 20 MEQ PREMIX 100 ML IV PRN ×3 (13:00)
[2017-02-10] MEDS ORDERED: INSULIN REGULAR (IV INFUSION) 100 UNITS in SODIUM CHLORIDE 0.9% INJ 99 ML IV PRN (13:00)
[2017-02-10] MEDS ORDERED: RESP: ALBUTEROL 2.5 MG/IPRATROPIUM 0.5 MG NEB (PRN) NEB (13:00)
[2017-02-10] MEDS ORDERED: SODIUM BICARBONATE 8.4% SOLN 50 MEQ/50 ML VIAL IV PUSH PRN ×2 (13:00)
[2017-02-10] MEDS ORDERED: ACETAMINOPHEN 325 MG TAB PO PRN (13:00)
[2017-02-10] MEDS ORDERED: hydrALAZINE HCL 20 MG/ML VIAL IV PUSH PRN (13:00)
[2017-02-10] MEDS ORDERED: METOPROLOL TARTRATE 5 MG/5 ML VIAL IV PUSH PRN (13:00)
[2017-02-10] MEDS ORDERED: Post-op Orders (for Pharmacy) MISC OTHER ONE (13:00)
[2017-02-10] MEDS ORDERED: CLEVIDIPINE INJ 50 ML IV PRN (13:00)
[2017-02-10] MEDS ORDERED: RESP: RACEPINEPHRINE 2.25% 0.5 ML NEB NEB PRN (13:00)
[2017-02-10] MEDS ORDERED: MAGNESIUM SULFATE INJ 2 GM in SODIUM CHLORIDE 0.9% INJ 100 ML IV PRN ×4 (13:00)
[2017-02-10] MEDS ORDERED: POTASSIUM CHLORIDE 20 MEQ CONTROLLED RELEASE TAB PO PRN ×2 (13:00)
[2017-02-10] MEDS ORDERED: CALCIUM CHLORIDE 10% 1 GRAM/10 ML VIAL IV PUSH PRN (13:00)
[2017-02-10] MEDS ORDERED: ONDANSETRON HCL 4 MG/2 ML VIAL IV PUSH PRN (13:00)
[2017-02-10] MEDS ORDERED: DEXMEDETOMIDINE INJ 200 MCG in SODIUM CHLORIDE 0.9% INJ 50 ML IV PRN (14:00)
[2017-02-10] MEDS ORDERED: CALCIUM CHLORIDE INJ 1 GM in SODIUM CHLORIDE 0.9% INJ 100 ML IV PRN (14:00)
--- NOTE | 2017-02-10 14:35 | RADRPT ---
EXAM DATE/TIME: 02/10/2017 13:46 [facility] COMPARISON: CHEST SINGLE AP, September 15, 2016, 12:30. INDICATIONS : Post op open heart surgery. MEDICAL HISTORY : Cardiovascular disease. SURGICAL HISTORY : Angioplasty x 2 ENCOUNTER: Initial ACUITY: 1 day PAIN SCORE: Non-responsive. LOCATION: Bilateral chest FINDINGS: The patient is post aortic valvular replacement. The endotracheal tube, left subclavian central line and right-sided chest tube are all in good position. The lungs are clear. The heart is normal in size . CONCLUSION: 1. Post surgical changes. Support equipment in good position. No acute abnormality. Negrito Cuba MD on February 10, 2017 at 14:31 Board Certified Radiologist. This report was verified electronically.
--- NOTE | 2017-02-10 14:42 | PD.CAR.PN ---
CVT Progress Note Subjective/Hospital Course: 66/ male hx of severe aortic stenosis and non obstructive CAD , LV dysfunction , he was not deemed a TAVR candidate 2/2 low mortality and fralility score . He was admitted for elective Mini AVR EF 45-50% PMH: severe , Sequeira's palsy, CAD with prior [place]/ PCI, CVA 20 yrs ago, DM, esophageal reflux, HLP, HTN surgery: 02/10 minimally invasive AVR with a 25 Intuity tissue valve Ultrasound-guided percutaneous access left femoral artery and vein with Perclose closure of the artery ZULEIMA Objective: Vital Signs Date Time Temp Pulse Resp B/P (MAP) Pulse Ox O2 Delivery O2 Flow Rate FiO2 02/10/17 06:19 98.5 63 18 135/93 (107) 98 Labs: Laboratory Tests Test 02/10/17 06:05 Nasal Screen MRSA (PCR) MRSA NOT DETECTED (NOT (1) Aortic stenosis (2) S/P AVR (aortic valve replacement) (3) Diabetes mellitus (4) Coronary artery disease (5) Hyperlipemia (6) Hypertension (7) Diastolic CHF due to valvular disease Problem Qualifiers (1) Diabetes mellitus: Dotty Barrow Feb 10, 2017 14:42
--- NOTE | 2017-02-10 14:44 | HHI.FF ---
Face to Face Verification Diagnosis: (1) Aortic stenosis (2) Diastolic CHF due to valvular disease (3) Coronary artery disease (4) Diabetes mellitus (5) Hyperlipemia (6) Hypertension (7) S/P AVR (aortic valve replacement) Home Health Nursing Order: Signs/symptoms of disease process Medication education-adverse effect Wound care and dressing changes Nursing assessment with vital signs Instructions: Heart and Vascular Surgery patients *Special attention to sternal dressing Mandatory frequency Assess and evaluation, 4 days in a row The next week 3X week 2 times a week for 4 weeks 1 time a week for 5 weeks Schedule Heart and Vascular patients for full 60 day certification period Initial visit Review Open Heart Surgery Discharge Instructions (Sternal precautions, Activity, Elastic hose, Incision care, Driving, Incentive spirometry, Smoking, [place], Work and other) Need Betadine to paint incision Medication reconciliation Importance of follow up care/ check on appointments Make calendar record temperature daily When to call [facility] nurse, review instructions, phone list Incentive Spirometry, demonstration Visit 1- Begin discharge instruction for patient family and/ or caregiver using teach back method- Signs and symptoms of infection Disease characteristics Medicines and side effects Foods and nutrition/ appetite Infection control/ hand washing/ hygiene Visit 2- Continue teaching Discharge instructions- include additional information on smoking cessation , sternal dressing (sternal vac) Visit 3- Continue teaching- Cough and deep breathing, incision monitoring. Choose my plate Visit 4- Continue teaching- Discuss limitations Discuss how they are feeling Discuss progress toward goals Remaining visits- continue teaching and monitoring Incentive spirometry Q1 hr x 10, while awake, also use acapella device hourly whole awake chest wall Precautions: NO pushing or pulling, ( pt must use chest pillow to support chest with all activities and with coughing Daily incision care: ok to shower daily, no tub bath. Wash all incisions with liquid dial soap, clean wash cloth to each site, rinse and pat dry. Observe for any signs of infection, such as drainage which is dark yellow, saleem, green or foul smelling. Immediately report to the surgeon any drainage from the chest incision, or legs, and for any abnormal drainage from the chest tube sites. Notify surgeon if any temp >101.5 degrees F. When specialty dressing removed/ or if you do not have one, continue to shower daily as above, then rinse and pat incision dry and paint with betadine daily x 5 days. Allow steri strips to fall off if you have any. Avoid lotions, creams, salves, oils, etc. for the first month For Dr. Caicedo patients , please obtain CBC, BMP, PA & Lat CXR in 2 weeks, results to Dr. Caicedo ( prescription will be given) ( ) (Tele: [phone]) , Valve replacement pts will need 2decho in 2 weeks with results to Dr. Caicedo . 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 Blanco & Dr. Caicedo), After Hours / Nights (5pm -8am) Weekends and Holidays Please call [facility] Card[facility] ([facility]) Charge Nurse I have seen patient Mango Tucker on 02/10/17. My clinical findings support the need for the requested home health care services because: Deconditioned w/ increased weakness I certify that my clinical findings support that this patient is homebound because: Post-op weakness Dotty Barrow Feb 10, 2017 14:44
[2017-02-10] MEDS: ACETAMINOPHEN 1000 MG/100 ML 100 ML IV SCH ×2 (14:50→21:18)
[2017-02-10] MEDS ORDERED: INSULIN HUMAN NPH/R 70/30 1,000 UNITS/10 ML VIAL SQ SCH (16:00)
[2017-02-10] MEDS: RESP: ALBUTEROL 2.5 MG/IPRATROPIUM 0.5 MG NEB (SCH) NEB ×2 (18:06→21:23)
[2017-02-10] MEDS: SODIUM CHLORIDE 0.9% FLUSH 10 ML FLUSH IV FLUSH SCH (21:24)
[2017-02-10] MEDS: ATORVASTATIN 40 MG TAB PO SCH (21:25)
[2017-02-11] VITALS (16 sets, daily range): BP systolic 98–142; BP diastolic 53–71; PULSE 61–82; RESP 17–20; TEMP 98–98.7; O2SAT 95–97
[2017-02-11] MEDS: oxyCODONE/ACETAMINOPHEN 5 MG/325 MG TAB PO PRN ×7 (00:17→21:49)
[2017-02-11] MEDS: RESP: ALBUTEROL 2.5 MG/IPRATROPIUM 0.5 MG NEB (SCH) NEB ×4 (04:01→21:16)
[2017-02-11] MEDS: ACETAMINOPHEN 1000 MG/100 ML 100 ML IV SCH ×2 (04:17→07:57)
[2017-02-11 05:20] LABS: MEAN CELL VOLUME 93.8 FL (80.0-100.0); MEAN CORPUSCULAR HEMOGLOBIN 31.1 PG (27.0-34.0); MEAN CORPUSCULAR HGB CONC 33.1 % (32.0-36.0); PLATELET COUNT 152 TH/MM3 (150-450); RED BLOOD COUNT 3.62 MIL/MM3 (4.50-5.90); RED CELL DISTRIBUTION WIDTH 14.2 % (11.6-17.2); REVIEW FLAG FINAL; WHITE BLOOD COUNT 14.2 TH/MM3 (4.0-11.0)
[2017-02-11 05:42] LABS: BICARBONATE 26.1 MEQ/L (21.0-32.0); POTASSIUM 3.9 MEQ/L (3.5-5.1)
[2017-02-11] MEDS: PANTOPRAZOLE SOD 40 MG DELAYED RELEASE TAB PO SCH (05:51)
--- NOTE | 2017-02-11 05:55 | RADRPT ---
EXAM DATE/TIME: 02/11/2017 04:33 [facility] COMPARISON: CHEST SINGLE AP, February 10, 2017, 13:46. INDICATIONS : Chest pain post CABG MEDICAL HISTORY : Cardiovascular disease. SURGICAL HISTORY : CABG. ENCOUNTER: Subsequent ACUITY: 2 days PAIN SCORE: 8/10 LOCATION: Bilateral chest FINDINGS: Portable AP view of the chest demonstrates a normal-sized cardiac silhouette. Endotracheal tube and n asogastric tube have been removed. Bowel replacement is visualized. Left subclavian central line and right chest tube remain present. No pneumothorax is visualized. There is linear atelectasis at the le ft lung base. CONCLUSION: Interval extubation. Right chest tube remains present and no pneumothorax is visualized. Trevin Coyne MD on February 11, 2017 at 5:53 Board Certified Radiologist. This report was verified electronically.
[2017-02-11] MEDS: ASPIRIN 81 MG CHEW TAB PO SCH (07:58)
[2017-02-11] MEDS: SODIUM CHLORIDE 0.9% FLUSH 10 ML FLUSH IV FLUSH SCH ×2 (07:58→20:40)
[2017-02-11] MEDS: FENOFIBRATE 145 MG TAB PO SCH (07:58)
--- NOTE | 2017-02-11 08:29 | PD.CAR.PN ---
CVT Progress Note CVT: POD #: 1 Subjective/Hospital Course: 66/ male hx of severe aortic stenosis and non obstructive CAD , LV dysfunction , he was not deemed a TAVR candidate 2/2 low mortality and fralility score . He was admitted for elective Mini AVR EF 45-50% PMH: severe , Sequeira's palsy, CAD with prior [place]/ PCI, CVA 20 yrs ago, DM, esophageal reflux, HLP, HTN surgery: 02/10 minimally invasive AVR with a 25 Intuity tissue valve Ultrasound-guided percutaneous access left femoral artery and vein with Perclose closure of the artery ZULEIMA 02/11/17 Doing well, c/o incisional pain Objective: Vital Signs Date Time Temp Pulse Resp B/P (MAP) Pulse Ox O2 Delivery O2 Flow Rate FiO2 02/11/17 08:21 95 Nasal Cannula 2.00 02/11/17 05:30 18 02/11/17 04:50 18 02/11/17 04:00 97 Nasal Cannula 2.00 02/11/17 04:00 98.0 64 18 115/69 (84) 97 121/55 (77) 02/11/17 03:30 61 02/11/17 01:20 18 02/10/17 23:30 63 02/10/17 23:09 94 Nasal Cannula 2.00 02/10/17 23:00 97.8 64 16 95/55 (68) 97 106/48 (67) 02/10/17 19:43 97 Nasal Cannula 2.00 02/10/17 19:30 97 Nasal Cannula 2.00 02/10/17 19:00 97.8 62 16 134/70 (91) 95 134/60 (84) 02/10/17 19:00 65 02/10/17 18:06 98 Nasal Cannula 2.00 02/10/17 15:55 98.6 02/10/17 15:00 97 Nasal Cannula 4.00 02/10/17 15:00 69 02/10/17 14:45 96 Nasal Cannula 3 02/10/17 14:45 95 Nasal Cannula 4.00 02/10/17 13:35 98.6 02/10/17 13:20 96 55 02/10/17 13:20 55 02/10/17 13:20 97.7 76 9 96/56 (69) 97 108/59 (75) 02/10/17 13:20 94 02/10/17 13:20 97 Mechanical Ventilator 55 Labs: Laboratory Tests Test 02/11/17 05:05 White Blood Count 14.2 TH/MM3 (4.0-11.0) Red Blood Count 3.62 MIL/MM3 (4.50-5.90) Hemoglobin 11.3 GM/DL (13.0-17.0) Hematocrit 34.0 % (39.0-51.0) Mean Corpuscular Volume 93.8 FL (80.0-100.0) Mean Corpuscular Hemoglobin 31.1 PG (27.0-34.0) Mean Corpuscular Hemoglobin Concent 33.1 % (32.0-36.0) Red Cell Distribution Width 14.2 % (11.6-17.2) Platelet Count 152 TH/MM3 (150-450) Mean Platelet Volume 7.8 FL (7.0-11.0) Blood Urea Nitrogen 27 MG/DL (7-18) Creatinine 1.27 MG/DL (0.60-1.30) Random Glucose 131 MG/DL (74-106) Calcium Level 8.4 MG/DL (8.5-10.1) Magnesium Level 2.0 MG/DL (1.5-2.5) Sodium Level 139 MEQ/L (136-145) Potassium Level 3.9 MEQ/L (3.5-5.1) Chloride Level 106 MEQ/L (98-107) Carbon Dioxide Level 26.1 MEQ/L (21.0-32.0) Anion Gap 7 MEQ/L (5-15) Estimat Glomerular Filtration Rate 56 ML/MIN (>89) Result Diagram: 02/11/17 0505 02/11/17 0505 Imaging: Last 24 hours Impressions Chest X-Ray 02/11/17 0500 Signed Impressions: Service Date/Time: Saturday, February 11, 2017 04:33 - CONCLUSION: Interval extubation. Right chest tube remains present and no pneumothorax is visualized. Trevin Coyne MD Cardiovascular: RRR Telemetry: NSR Pulmonary: CTA GI/: NABS Incision: dry and intact CT: ~90ml since OR Edema: Patient's left foot is slightly cooler than right foot with diminished pulses. No tenderness or decreased sensation in left foot Plan: D/C wires and chest tubes Up to chair/ambulate Remove Patel Adjust insulin U/S left groin to evaluate femoral artery. transfer to stepdown PT (1) Aortic stenosis (2) S/P AVR (aortic valve replacement) (3) Diabetes mellitus (4) Coronary artery disease (5) Hyperlipemia (6) Hypertension (7) Diastolic CHF due to valvular disease Problem Qualifiers (1) Diabetes mellitus: Renee Caicedo MD Feb 11, 2017 08:29
[2017-02-11] MEDS ORDERED: DEXTROSE 50% IN WATER 50 ML VIAL(D50) IV PUSH PRN (09:00)
[2017-02-11] MEDS ORDERED: SOD PHOSPHATE/SOD BIPHOSPHATE (ADULT) ENEMA 133ML RECTAL PRN (09:00)
[2017-02-11] MEDS ORDERED: GLUCAGON 1 MG/ML VIAL OTHER PRN (09:00)
[2017-02-11] MEDS ORDERED: BISACODYL 10 MG SUPP RECTAL PRN (09:30)
[2017-02-11] MEDS ORDERED: FUROSEMIDE 20 MG/2 ML VIAL IV PUSH ONE (09:45)
[2017-02-11] MEDS ORDERED: POTASSIUM CHLORIDE 20 MEQ CONTROLLED RELEASE TAB PO ONE (09:45)
[2017-02-11] MEDS ORDERED: INSULIN DETEMIR 100 UNITS/ML VIAL SQ ONE (09:45)
[2017-02-11] MEDS: INSULIN ASPART SUPPLEMENTAL SCALE SQ SCH ×4 (10:00→21:59)
[2017-02-11] MEDS: DOCUSATE SODIUM 100 MG CAP PO SCH ×2 (10:06→20:39)
[2017-02-11] MEDS: MULTIVITAMINS/MINERALS THERAPEUTIC TAB PO SCH (10:07)
[2017-02-11] MEDS: METOPROLOL TARTRATE 25 MG TAB PO SCH ×2 (10:08→20:39)
[2017-02-11] MEDS: MAGNESIUM HYDROXIDE SUSP 30 ML CUP PO SCH (10:08)
--- NOTE | 2017-02-11 10:24 | RADRPT ---
EXAM DATE/TIME: 02/11/2017 09:16 [facility] COMPARISON: No previous studies available for comparison. INDICATIONS : Status post femoral cannulation. Decreased arterial pulse. MEDICAL HISTORY : Myocardial infarction. Hypercholesterolemia. CVA. Coronary artery disease. Heart murmur. HTN. GERD. Chronic kidney disease, stage III. Diabetes. Melanoma. MRSA. SURGICAL HISTORY : Percutaneous transluminal coronary angioplasty. Orthopedic surgery; right shoulder, left knee. Remova l of melanoma from back of head. ENCOUNTER: Initial ACUITY: 1 day PAIN SCORE: 0/10 LOCATION: Left leg. PEAK SYSTOLIC VELOCITIES (cm/sec): EXTERNAL ILIAC ARTERY: Left: 35.1 triphasic BUILDING OFFICIAL: Left: 32.2 biphasic SUPERFICIAL FEMORAL ARTERY PROXIMAL: Left: 15.7 biphasic SUPERFICIAL FEMORAL ARTERY MID: Left: 17.2 biphasic SUPERFICIAL FEMORAL ARTERY DISTAL: Left: 16.1 biphasic POPLITEAL ARTERY: Left:12.5 biphasic PERONEAL ARTERY: Left:12.2 POSTERIOR TIBIAL ARTERY: Left:9.4 FINDINGS: Diffuse atherosclerotic plaque. No hemodynamically significant stenosis appreciated. CONCLUSION: Diffuse atherosclerotic plaque without hemodynamically significant stenosis observed. No signal appre ciated within the anterior tibial artery. Mahendra Manning Jr., MD on February 11, 2017 at 9:54 Board Certified Radiologist. This report was verified electronically.
--- NOTE | 2017-02-11 16:35 | EKG ---
Date Performed: 02/11/2017 Time Performed: 05:02:24 PTAGE: 66 years EKG: Sinus rhythm Prolonged QT interval Inferior infarct - age undetermined Possible LVH with secondary repolarization abnormality Lateral ST-T changes may be due to hypertrophy and/or ischemia Abnormal ECG Compared to PREVIOUS TRACING , lateral ST-T wave changes potentially consistent with ischemia. Clinic al correlation requested. PREVIOUS TRACIN09/15/2016 10.24 DOCTOR: Sarah Wiley Interpretating Date/Time 02/11/2017 16:33:33
[2017-02-11] MEDS: INSULIN HUMAN NPH/R 70/30 1,000 UNITS/10 ML VIAL SQ SCH (16:42)
[2017-02-11] MEDS: ATORVASTATIN 40 MG TAB PO SCH (20:39)
[2017-02-11] MEDS: SENNOSIDES 8.6 MG TAB PO SCH (20:39)
[2017-02-12] VITALS (28 sets, daily range): BP systolic 106–126; BP diastolic 60–80; PULSE 65–95; RESP 16–18; TEMP 97.6–98.9; O2SAT 93–96
[2017-02-12] MEDS: oxyCODONE/ACETAMINOPHEN 5 MG/325 MG TAB PO PRN ×7 (00:41→21:45)
[2017-02-12] MEDS: INSULIN ASPART SUPPLEMENTAL SCALE SQ SCH ×5 (03:52→21:00)
[2017-02-12] MEDS: PANTOPRAZOLE SOD 40 MG DELAYED RELEASE TAB PO SCH (05:38)
--- NOTE | 2017-02-12 06:46 | RADRPT ---
EXAM DATE/TIME: 02/12/2017 04:22 [place] COMPARISON: CHEST SINGLE AP, February 11, 2017, 4:33. INDICATIONS : Shortness of breath, possible pneumothorax. MEDICAL HISTORY : Cardiovascular disease. SURGICAL HISTORY : Aortic valve replacement ENCOUNTER: Subsequent ACUITY: 3 days PAIN SCORE: 8/10 LOCATION: Bilateral chest FINDINGS: Portable AP view of the chest demonstrates a normal-sized cardiac silhouette. Left subclavian central line remains present. The right chest tube has been removed. No pneumothorax is identified. There is a small right pleural-based opacity with blunting of the right costophrenic sulcus. Linear atelectas is versus scar is present at the left lung base. CONCLUSION: 1. No pneumothorax identified following right chest tube removal. 2. There is a small right pleural-based opacity and blunting of the right costophrenic angle. This co uld represent pleural thickening or small pleural effusion. Trevin Coyne MD on February 12, 2017 at 6:43 Board Certified Radiologist. This report was verified electronically.
[2017-02-12 06:57] LABS: AUTOMATED NEUTROPHIL # 12.2 TH/MM3 (1.8-7.7); BASOPHIL % 0.1 % (0.0-2.0); EOSINOPHIL % 0.3 % (0.0-4.0); HEMATOCRIT 34.7 % (39.0-51.0); LYMPH % 7.9 % (9.0-44.0); LYMPHOCYTE # 1.3 TH/MM3 (1.0-4.8); MEAN CELL VOLUME 94.2 FL (80.0-100.0); MEAN CORPUSCULAR HEMOGLOBIN 31.1 PG (27.0-34.0); MONO % 15.2 % (0.0-8.0); NEUT % 76.5 % (16.0-70.0); PLATELET COUNT 146 TH/MM3 (150-450); RED BLOOD COUNT 3.69 MIL/MM3 (4.50-5.90); RED CELL DISTRIBUTION WIDTH 14.4 % (11.6-17.2); WHITE BLOOD COUNT 15.9 TH/MM3 (4.0-11.0)
[2017-02-12 07:05] LABS: HEMO FLAGS AUTO DIFF
[2017-02-12 07:12] LABS: BICARBONATE 27.4 MEQ/L (21.0-32.0); MAGNESIUM 2.1 MG/DL (1.5-2.5); POTASSIUM 4.5 MEQ/L (3.5-5.1)
[2017-02-12] MEDS: RESP: ALBUTEROL 2.5 MG/IPRATROPIUM 0.5 MG NEB (SCH) NEB ×3 (07:53→20:46)
[2017-02-12 08:03] LABS: SCAN/DIFF AUTO DIFF CONFIRMED
[2017-02-12] MEDS: SODIUM CHLORIDE 0.9% FLUSH 10 ML FLUSH IV FLUSH SCH ×2 (09:00→21:46)
[2017-02-12] MEDS: POLYETHYLENE GLYCOL 17 GM PKG PO SCH (09:06)
[2017-02-12] MEDS: MAGNESIUM HYDROXIDE SUSP 30 ML CUP PO SCH (09:07)
[2017-02-12] MEDS: DOCUSATE SODIUM 100 MG CAP PO SCH ×2 (09:07→21:45)
[2017-02-12] MEDS: CLOPIDOGREL 75 MG TAB PO SCH (09:08)
[2017-02-12] MEDS: ASPIRIN 81 MG CHEW TAB PO SCH (09:08)
[2017-02-12] MEDS: FENOFIBRATE 145 MG TAB PO SCH (09:08)
[2017-02-12] MEDS: METOPROLOL TARTRATE 25 MG TAB PO SCH ×2 (09:08→21:45)
[2017-02-12] MEDS: MULTIVITAMINS/MINERALS THERAPEUTIC TAB PO SCH (09:09)
--- NOTE | 2017-02-12 11:52 | PD.CAR.PN ---
CVT Progress Note CVT: POD #: 2 Subjective/Hospital Course: 66/ male hx of severe aortic stenosis and non obstructive CAD , LV dysfunction , he was not deemed a TAVR candidate 2/2 low mortality and fralility score . He was admitted for elective Mini AVR EF 45-50% PMH: severe , Sequeira's palsy, CAD with prior [place]/ PCI, CVA 20 yrs ago, DM, esophageal reflux, HLP, HTN surgery: 02/10 minimally invasive AVR with a 25 Intuity tissue valve Ultrasound-guided percutaneous access left femoral artery and vein with Perclose closure of the artery ZULEIMA 02/11/17 Doing well, c/o incisional pain 02/12/17 c/o indigestion, reflux Objective: Vital Signs Date Time Temp Pulse Resp B/P (MAP) Pulse Ox O2 Delivery O2 Flow Rate FiO2 02/12/17 10:00 77 02/12/17 09:00 77 02/12/17 08:00 65 02/12/17 08:00 95 Room Air 02/12/17 08:00 97.7 75 18 106/61 (76) 95 02/12/17 07:53 94 21 02/12/17 07:00 71 02/12/17 06:43 70 02/12/17 05:02 72 02/12/17 04:07 74 02/12/17 03:20 98.4 76 18 122/62 (82) 95 02/12/17 03:20 95 Room Air 02/12/17 03:04 72 02/12/17 02:01 74 02/12/17 01:40 70 02/12/17 00:12 68 02/11/17 23:36 95 Nasal Cannula 2.00 02/11/17 23:36 98.2 82 20 138/65 (89) 95 02/11/17 23:29 71 02/11/17 22:00 74 02/11/17 21:00 76 02/11/17 20:00 74 02/11/17 19:20 95 Room Air 02/11/17 19:20 98.3 73 18 98/53 (68) 95 02/11/17 19:20 72 02/11/17 18:00 75 02/11/17 17:00 72 02/11/17 16:00 68 02/11/17 15:12 98.7 68 20 142/71 (94) 96 Arterial Line 02/11/17 15:12 96 Room Air 02/11/17 15:00 71 Labs: Laboratory Tests Test 02/12/17 06:00 White Blood Count 15.9 TH/MM3 (4.0-11.0) Red Blood Count 3.69 MIL/MM3 (4.50-5.90) Hemoglobin 11.5 GM/DL (13.0-17.0) Hematocrit 34.7 % (39.0-51.0) Mean Corpuscular Volume 94.2 FL (80.0-100.0) Mean Corpuscular Hemoglobin 31.1 PG (27.0-34.0) Mean Corpuscular Hemoglobin Concent 33.0 % (32.0-36.0) Red Cell Distribution Width 14.4 % (11.6-17.2) Platelet Count 146 TH/MM3 (150-450) Mean Platelet Volume 8.5 FL (7.0-11.0) Neutrophils (%) (Auto) 76.5 % (16.0-70.0) Lymphocytes (%) (Auto) 7.9 % (9.0-44.0) Monocytes (%) (Auto) 15.2 % (0.0-8.0) Eosinophils (%) (Auto) 0.3 % (0.0-4.0) Basophils (%) (Auto) 0.1 % (0.0-2.0) Neutrophils # (Auto) 12.2 TH/MM3 (1.8-7.7) Lymphocytes # (Auto) 1.3 TH/MM3 (1.0-4.8) Monocytes # (Auto) 2.4 TH/MM3 (0-0.9) Eosinophils # (Auto) 0.0 TH/MM3 (0-0.4) Basophils # (Auto) 0.0 TH/MM3 (0-0.2) CBC Comment AUTO DIFF Differential Comment AUTO DIFF CONFIRMED Blood Urea Nitrogen 25 MG/DL (7-18) Creatinine 1.12 MG/DL (0.60-1.30) Random Glucose 156 MG/DL (74-106) Calcium Level 8.9 MG/DL (8.5-10.1) Magnesium Level 2.1 MG/DL (1.5-2.5) Sodium Level 136 MEQ/L (136-145) Potassium Level 4.5 MEQ/L (3.5-5.1) Chloride Level 102 MEQ/L (98-107) Carbon Dioxide Level 27.4 MEQ/L (21.0-32.0) Anion Gap 7 MEQ/L (5-15) Estimat Glomerular Filtration Rate 65 ML/MIN (>89) Result Diagram: 02/12/17 0600 02/12/17599 Imaging: Last 24 hours Impressions Chest X-Ray 02/12/17599 Signed Impressions: Service Date/Time: Sunday, February 12, 2017 04:22 - CONCLUSION: 1. No pneumothorax identified following right chest tube removal. 2. There is a small right pleural-based opacity and blunting of the right costophrenic angle. This could represent pleural thickening or small pleural effusion. Trevin Coyne MD Cardiovascular: RRR Telemetry: NSR Pulmonary: CTA GI/: NABS, NT Incision: dry and intact Plan: Restart home Zantac for GERD Encourage ambulation Possible home in AM Continue ASA, BB (1) Aortic stenosis (2) S/P AVR (aortic valve replacement) (3) Diabetes mellitus (4) Coronary artery disease (5) Hyperlipemia (6) Hypertension (7) Diastolic CHF due to valvular disease Problem Qualifiers (1) Diabetes mellitus: Renee Caicedo MD Feb 12, 2017 11:52
[2017-02-12] MEDS: INSULIN HUMAN NPH/R 70/30 1,000 UNITS/10 ML VIAL SQ SCH (16:00)
[2017-02-12] MEDS: SENNOSIDES 8.6 MG TAB PO SCH (21:45)
[2017-02-12] MEDS: ATORVASTATIN 40 MG TAB PO SCH (21:45)
[2017-02-13] VITALS (28 sets, daily range): BP systolic 91–122; BP diastolic 60–86; PULSE 77–150; RESP 16–18; TEMP 97.6–99.4; O2SAT 89–99
[2017-02-13] MEDS: oxyCODONE/ACETAMINOPHEN 5 MG/325 MG TAB PO PRN ×4 (00:48→19:16)
[2017-02-13] MEDS: PANTOPRAZOLE SOD 40 MG DELAYED RELEASE TAB PO SCH (05:43)
[2017-02-13] MEDS: INSULIN HUMAN NPH/R 70/30 1,000 UNITS/10 ML VIAL SQ SCH ×2 (07:00→17:11)
[2017-02-13] MEDS: RESP: ALBUTEROL 2.5 MG/IPRATROPIUM 0.5 MG NEB (SCH) NEB ×2 (07:51→14:06)
[2017-02-13] MEDS: INSULIN ASPART SUPPLEMENTAL SCALE SQ SCH ×4 (08:00→22:11)
[2017-02-13] MEDS: CLOPIDOGREL 75 MG TAB PO SCH (08:15)
[2017-02-13] MEDS: FAMOTIDINE 20 MG TAB PO SCH ×2 (08:16→21:03)
[2017-02-13] MEDS: ASPIRIN 81 MG CHEW TAB PO SCH (08:16)
[2017-02-13] MEDS: MULTIVITAMINS/MINERALS THERAPEUTIC TAB PO SCH (08:16)
[2017-02-13] MEDS: FENOFIBRATE 145 MG TAB PO SCH (08:16)
[2017-02-13] MEDS: METOPROLOL TARTRATE 25 MG TAB PO SCH ×2 (08:16→21:00)
[2017-02-13] MEDS ORDERED: AMIODARONE HCL 150 MG/3 ML VIAL ONE (08:39)
[2017-02-13] MEDS: MAGNESIUM HYDROXIDE SUSP 30 ML CUP PO SCH (09:00)
[2017-02-13] MEDS: DOCUSATE SODIUM 100 MG CAP PO SCH ×2 (09:00→21:03)
[2017-02-13] MEDS: SODIUM CHLORIDE 0.9% FLUSH 10 ML FLUSH IV FLUSH SCH ×2 (09:00→21:02)
[2017-02-13] MEDS ORDERED: CLOPIDOGREL 75 MG TAB PO SCH (09:00)
[2017-02-13] MEDS: POLYETHYLENE GLYCOL 17 GM PKG PO SCH (09:00)
[2017-02-13] MEDS ORDERED: AMIODARONE 150 MG/D5W 97 ML BOLUS 60 MINUTES IV ONE ×2 (09:30)
--- NOTE | 2017-02-13 09:51 | PD.CAR.PN ---
CVT Progress Note CVT: POD #: 3 Subjective/Hospital Course: 66/ male hx of severe aortic stenosis and non obstructive CAD , LV dysfunction , he was not deemed a TAVR candidate 2/2 low mortality and fralility score . He was admitted for elective Mini AVR EF 45-50% PMH: severe , Sequeira's palsy, CAD with prior [place]/ PCI, CVA 20 yrs ago, DM, esophageal reflux, HLP, HTN surgery: 02/10 minimally invasive AVR with a 25 Intuity tissue valve Ultrasound-guided percutaneous access left femoral artery and vein with Perclose closure of the artery ZULEIMA 02/11/17 Doing well, c/o incisional pain 02/12/17 c/o indigestion, reflux 02/13/17 AFIB this morning with rate in 120s-130s Asymptomatic Objective: Vital Signs Date Time Temp Pulse Resp B/P (MAP) Pulse Ox O2 Delivery O2 Flow Rate FiO2 02/13/17 09:22 95 Nasal Cannula 2.00 02/13/17 09:21 97 113/59 02/13/17 07:56 89 21 02/13/17 07:15 92 Room Air 02/13/17 07:15 98.1 86 18 119/66 (83) 92 02/13/17 07:15 92 02/13/17 06:11 80 02/13/17 05:48 84 02/13/17 04:20 85 02/13/17 03:30 78 02/13/17 03:30 98.4 79 16 122/73 (89) 94 02/13/17 03:30 94 Room Air 02/13/17 02:02 78 02/13/17 01:08 77 02/13/17 00:30 80 02/12/17 23:21 93 Room Air 02/12/17 23:21 98.8 84 17 111/60 (77) 93 02/12/17 23:19 84 02/12/17 22:00 95 02/12/17 21:00 92 02/12/17 20:48 93 21 02/12/17 20:01 80 02/12/17 19:35 98.9 82 16 126/60 (82) 93 02/12/17 19:35 85 02/12/17 19:35 93 Room Air 02/12/17 18:00 87 02/12/17 17:00 81 02/12/17 16:00 68 02/12/17 15:00 96 Room Air 02/12/17 15:00 97.6 72 16 106/80 (89) 96 02/12/17 14:00 74 02/12/17 13:00 69 02/12/17 12:00 77 02/12/17 11:00 94 Room Air 02/12/17 11:00 68 02/12/17 11:00 98.0 74 16 106/80 (89) 94 02/12/17 10:00 77 Result Diagram: 02/12/17 0600 02/12/17 0600 Cardiovascular: IRR Telemetry: AFIB Pulmonary: CTA GI/: NABS, NT Incision: dry and intact Plan: Amiodarone bolus 2 gms MgSO4 Start PO amiodarone Will d/c in AM if he converts (1) Aortic stenosis (2) S/P AVR (aortic valve replacement) (3) Diabetes mellitus (4) Coronary artery disease (5) Hyperlipemia (6) Hypertension (7) Diastolic CHF due to valvular disease Problem Qualifiers (1) Diabetes mellitus: Renee Caicedo MD Feb 13, 2017 09:51
[2017-02-13] MEDS ORDERED: FUROSEMIDE 40 MG/4 ML VIAL IV PUSH ONE (10:00)
[2017-02-13] MEDS: MAGNESIUM SULFAT 1 GM PREMIX 100 ML x2 bags IV SCH ×2 (11:57→12:47)
[2017-02-13] MEDS: AMIODARONE 200 MG TAB PO SCH ×2 (11:58→19:15)
[2017-02-13] MEDS: SENNOSIDES 8.6 MG TAB PO SCH (21:03)
[2017-02-13] MEDS: ATORVASTATIN 40 MG TAB PO SCH (21:03)
[2017-02-14] VITALS (18 sets, daily range): BP systolic 125–142; BP diastolic 65–78; PULSE 68–89; RESP 16–20; TEMP 98.1–98.2; O2SAT 95–98
[2017-02-14] MEDS: AMIODARONE 200 MG TAB PO SCH ×2 (03:30→10:52)
[2017-02-14 05:49] LABS: POTASSIUM 4.4 MEQ/L (3.5-5.1)
[2017-02-14] MEDS: PANTOPRAZOLE SOD 40 MG DELAYED RELEASE TAB PO SCH (06:16)
[2017-02-14] MEDS: INSULIN HUMAN NPH/R 70/30 1,000 UNITS/10 ML VIAL SQ SCH (06:17)
[2017-02-14] MEDS: INSULIN ASPART SUPPLEMENTAL SCALE SQ SCH ×2 (08:00→12:00)
[2017-02-14] MEDS: METOPROLOL TARTRATE 25 MG TAB PO SCH (08:48)
[2017-02-14] MEDS: MULTIVITAMINS/MINERALS THERAPEUTIC TAB PO SCH (08:48)
[2017-02-14] MEDS: CLOPIDOGREL 75 MG TAB PO SCH (08:48)
[2017-02-14] MEDS: ASPIRIN 81 MG CHEW TAB PO SCH (08:48)
[2017-02-14] MEDS: DOCUSATE SODIUM 100 MG CAP PO SCH (08:48)
[2017-02-14] MEDS: FENOFIBRATE 145 MG TAB PO SCH (08:49)
[2017-02-14] MEDS: FAMOTIDINE 20 MG TAB PO SCH (08:49)
[2017-02-14] MEDS: oxyCODONE/ACETAMINOPHEN 5 MG/325 MG TAB PO PRN (08:49)
[2017-02-14] MEDS: SODIUM CHLORIDE 0.9% FLUSH 10 ML FLUSH IV FLUSH SCH (08:50)
[2017-02-14] MEDS: POLYETHYLENE GLYCOL 17 GM PKG PO SCH (08:50)
[2017-02-14] MEDS: MAGNESIUM HYDROXIDE SUSP 30 ML CUP PO SCH (08:50)
[2017-02-14] MEDS ORDERED: THERM PO (14:50)
[2017-02-14] MEDS ORDERED: OXYC1TAB63 PO (14:50)
[2017-02-14] MEDS ORDERED: METO25TA3 PO (14:50)
[2017-02-14] MEDS ORDERED: AMIO200T PO (14:50)
[2017-02-14] MEDS ORDERED: DOCU1CAP39 PO (14:50)
[2017-02-14] MEDS ORDERED: AMIO400T PO (15:00)
--- NOTE | 2017-02-14 15:04 | HHI.DS ---
Discharge Summary Admission Date Feb 10, 2017 at 05:30 Discharge Date: Feb 14, 2017 Admitting Diagnosis aortic stenosis diastolic heart failure (1) Diastolic CHF due to valvular disease Diagnosis: Secondary ICD Codes: I38 - Endocarditis, valve unspecified; I50.30 - Unspecified diastolic (congestive) heart failure (2) Aortic stenosis Diagnosis: Principal ICD Codes: I35.0 - Nonrheumatic aortic (valve) stenosis Status: Acute (3) Coronary artery disease Diagnosis: Principal ICD Codes: I25.10 - Atherosclerotic heart disease of jena coronary artery without angina pectoris (4) Diabetes mellitus Diagnosis: Principal ICD Codes: E11.9 - Type 2 diabetes mellitus without complications Status: Chronic (5) Hyperlipemia Diagnosis: Principal ICD Codes: E78.5 - Hyperlipidemia, unspecified (6) Hypertension Diagnosis: Principal ICD Codes: I10 - Essential (primary) hypertension Status: Chronic (7) S/P AVR (aortic valve replacement) Diagnosis: Secondary ICD Codes: Z95.2 - Presence of prosthetic heart valve Procedures minimally invasive AVR with a 25 Intuity tissue valve 02/10 Ultrasound-guided percutaneous access left femoral artery and vein with Perclose closure of the artery ZULEIMA Brief History 66/ male hx of severe aortic stenosis and non obstructive CAD , LV dysfunction , he was not deemed a TAVR candidate 2/2 low mortality and fralility score . He was admitted for elective Mini AVR EF 45-50% PMH: severe , Sequeira's palsy, CAD with prior [place]/ PCI, CVA 20 yrs ago, DM, esophageal reflux, HLP, HTN surgery: 02/10 minimally invasive AVR with a 25 Intuity tissue valve Ultrasound-guided percutaneous access left femoral artery and vein with Perclose closure of the artery ZULEIMA CBC/BMP: 02/12/17 0600 02/14/17 0517 Significant Findings Laboratory Tests Test 02/12/17 06:00 02/14/17 05:17 White Blood Count 15.9 TH/MM3 (4.0-11.0) Red Blood Count 3.69 MIL/MM3 (4.50-5.90) Hemoglobin 11.5 GM/DL (13.0-17.0) Hematocrit 34.7 % (39.0-51.0) Platelet Count 146 TH/MM3 (150-450) Neutrophils (%) (Auto) 76.5 % (16.0-70.0) Lymphocytes (%) (Auto) 7.9 % (9.0-44.0) Monocytes (%) (Auto) 15.2 % (0.0-8.0) Neutrophils # (Auto) 12.2 TH/MM3 (1.8-7.7) Monocytes # (Auto) 2.4 TH/MM3 (0-0.9) Blood Urea Nitrogen 25 MG/DL (7-18) 19 MG/DL (7-18) Random Glucose 156 MG/DL (74-106) Estimat Glomerular Filtration Rate 65 ML/MIN (>89) 66 ML/MIN (>89) Imaging Last Impressions Chest X-Ray 02/12/17 0600 Signed Impressions: Service Date/Time: Sunday, February 12, 2017 04:22 - CONCLUSION: 1. No pneumothorax identified following right chest tube removal. 2. There is a small right pleural-based opacity and blunting of the right costophrenic angle. This could represent pleural thickening or small pleural effusion. Trevin Coyne MD Arterial Ultrasound 02/11/17 0000 Signed Impressions: Service Date/Time: Saturday, February 11, 2017 09:16 - CONCLUSION: Diffuse atherosclerotic plaque without hemodynamically significant stenosis observed. No signal appreciated within the anterior tibial artery. Mahendra Manning Jr., MD PE at Discharge GENERAL: SKIN: Warm and dry. incision intact to right upper chest wall, and to chest tube site operations manager: Normocephalic. EYES: No scleral icterus. No injection or drainage. NECK: Supple, trachea midline. No JVD or lymphadenopathy. CARDIOVASCULAR: Regular rate and rhythm without murmurs, gallops, or rubs. RESPIRATORY: Breath sounds equal bilaterally. No accessory muscle use. GASTROINTESTINAL: Abdomen soft, non-tender, nondistended. MUSCULOSKELETAL: No cyanosis, or edema. BACK: Nontender without obvious deformity. No CVA tenderness. Hospital Course surgery: 02/10 minimally invasive AVR with a 25 Intuity tissue valve Ultrasound-guided percutaneous access left femoral artery and vein with Perclose closure of the artery ZULEIMA 02/11/17 Doing well, c/o incisional pain 02/12/17 c/o indigestion, reflux 02/13/17 AFIB this morning with rate in 120s-130s Asymptomatic 02/14 back in NSR stable for discharge, will need taper dose amiodarone Pt Condition on Discharge: Good Discharge Disposition: Disch w/ Home Health Serv Discharge Instructions DIET: Follow Instructions for: Diabetic Diet Activities you can perform: Full Weight Bearing, Shower Only-No Bath Activities to avoid: Strenuous Activity, Driving Additional Activity Instructio: no lifting > 8 lbs or gallon of milk Follow up Referrals: Cardiology - 4 Weeks with Yunior Puckett MD PCP Follow-up - 2 Weeks with Leandro Olsen M.d. Surgical - 2 Weeks with Dotty Barrow New Orders: 2D ECHO - 2 Weeks BASIC METABOLIC PROF - 2 Weeks CBC NO DIFF - 2 Weeks X-RAY CHEST PA & LAT - 2 Weeks New Medications: Amiodarone (Amiodarone) 400 Mg Tab 400 MG PO BID for Regulate Heart Beat, #60 TAB 0 Refills 400mg bid x 5 days, then 200mg bid x 5 days , then 200mg daily Docusate Sodium (Dok) 100 Mg Cap 100 MG PO BID for Constipation, #60 CAP 0 Refills Metoprolol Tartrate (Metoprolol Tartrate) 25 Mg Tab 25 MG PO Q12HR for Blood Pressure Management, #60 TAB 2 Refills Multiple Vitamins W/ Minerals (Thera M Plus) 1 Tab 1 TAB PO DAILY for multi vitamin, #30 TAB 2 Refills Oxycodone HCl/Acetaminophen (Oxycodone-Acetaminophen 5-325) 5 Mg-325 Mg Tablet 1 TAB PO Q6HR PRN for PAIN SCALE 1 TO 5, #40 TAB 0 Refills Continued Medications: Aspirin DR (Aspirin DR) 81 Mg Tabdr 81 MG PO DAILY, TAB 0 Refills Atorvastatin (Atorvastatin) 40 Mg Tab 40 MG PO HS for Cholesterol Management, #30 TAB 0 Refills Clopidogrel (Plavix) 75 Mg Tab 75 MG PO DAILY for Blood Clot Prevention, #30 TAB 0 Refills Fenofibrate (Fenofibrate) 160 Mg Tab 160 MG PO DAILY, #30 TAB 0 Refills Insulin Human Isophane-Regular 70-30 Inj (Novolin 70-30 Inj) 1,000 Unit/10 Ml Vial 60 UNITS SQ BIDAC for Blood Sugar Management, ML 0 Refills dose adjusts based on blood sugar results. he does not take if sugar is below 100 Ranitidine (Ranitidine) 150 Mg Tab 150 MG PO DAILY for Heartburn Management, #30 TAB 0 Refills Discontinued Medications: Lisinopril-Hctz (Lisinopril-Hctz) 20-25 Mg Tab 1 TAB PO DAILY for Blood Pressure Management, #30 TAB 0 Refills Metoprolol Tartrate (Metoprolol Tartrate) 100 Mg Tab 100 MG PO DAILY, #30 TAB 0 Refills Dotty Barrow Feb 14, 2017 15:04
== END 2017-02-14 15:50 | disposition home health service (06) | DRG 220 ==
LOC: HSDI 05:30 → HCVI 13:25 → HCPC 02-11 14:51
PROVIDERS: ADMIT Thoracic Surgery (Cardiothoracic Vascular Surgery); ATTEND Thoracic Surgery (Cardiothoracic Vascular Surgery)
PROC: B246ZZ4 Ultrasonography of Right and Left Heart, Transesophageal (ICD-10-PCS; 2017-02-10)
PROC: 02RF08Z Replacement of Aortic Valve with Zooplastic Tissue, Open Approach (ICD-10-PCS; principal; 2017-02-10 08:14)
PROC: 5A1221Z Performance of Cardiac Output, Continuous (ICD-10-PCS; 2017-02-10 08:14)
DX: I35.0 Nonrheumatic aortic (valve) stenosis (principal); I50.30 Unspecified diastolic (congestive) heart failure; I11.0 Hypertensive heart disease with heart failure; I48.91 Unspecified atrial fibrillation; I25.10 Atherosclerotic heart disease of native coronary artery without angina pectoris; E11.9 Type 2 diabetes mellitus without complications; E78.5 Hyperlipidemia, unspecified; K21.9 Gastro-esophageal reflux disease without esophagitis; Z86.73 Personal history of transient ischemic attack (TIA), and cerebral infarction without residual deficits; Z87.891 Personal history of nicotine dependence; Z85.820 Personal history of malignant melanoma of skin; Z98.61 Coronary angioplasty status; I25.2 Old myocardial infarction; Z79.4 Long term (current) use of insulin; Z88.1 Allergy status to other antibiotic agents
CPT/HCPCS: 36430; 71010; 76937; 80048; 82948; 83735; 85014; 85025; 85027; 86850; 86900; 86901; 86920; 87641; 88305; 88311; 93005; 93318; 93926; 94002; 94150; 94640; 94664; 94667; 94668; C1713; J0131; J0171; J0282; J0690; J1644; J1815; J1817; J1940; J2150; J2250; J2370; J2405; J2720; J2930; J3010; J3475; J3480; J7030; J7040; J7050; J7120; P9016; P9047

== ENCOUNTER 2017-03-17 12:33 | Inpatient (IN) | payer OTHER, MEDICARE ==
[~2017-03-17] VITALS: Ht 172.7 cm; Wt 92.0 kg
[~2017-03-17 12:33] MED LIST changes: +AMIO400T PO; +DEXAMETHASONE SOD PHOS 4 MG/ML VIAL IV ONE; +DOCU1CAP39 PO; +KETOROLAC TROMETHAMINE 30 MG/ML (IVP) VIAL IV PUSH ONE; +LIDOCAINE HCL 1% PF 5 ML SYRINGE OTHER ONE; -LISI20TA3 PO; -METO100T PO; +METO25TA3 PO; +NORMOSOL R INJ 1,000 ML IV ONE; +ONDANSETRON HCL 4 MG/2 ML VIAL IV PUSH ONE; +OXYC1TAB63 PO; +PHENYLEPH/NS 1000 MCG/10 ML SYR IV ONE; +PROPOFOL 200 MG/20 ML AMP IV ONE; +THERM PO
[2017-03-17] MEDS ORDERED: AMIO200T PO (13:16)
[2017-03-17 14:01] LABS: AUTOMATED NEUTROPHIL # 6.9 TH/MM3 (1.8-7.7); BASOPHIL % 0.3 % (0.0-2.0); EOSINOPHIL # 0.2 TH/MM3 (0-0.4); EOSINOPHIL % 1.7 % (0.0-4.0); HEMATOCRIT 40.8 % (39.0-51.0); HEMOGLOBIN 13.7 GM/DL (13.0-17.0); LYMPH % 16.6 % (9.0-44.0); LYMPHOCYTE # 1.6 TH/MM3 (1.0-4.8); MEAN CELL VOLUME 92.8 FL (80.0-100.0); MEAN CORPUSCULAR HEMOGLOBIN 31.1 PG (27.0-34.0); MEAN CORPUSCULAR HGB CONC 33.5 % (32.0-36.0); MEAN PLATELET VOLUME 7.8 FL (7.0-11.0); MONO % 10.7 % (0.0-8.0); NEUT % 70.7 % (16.0-70.0); PLATELET COUNT 226 TH/MM3 (150-450); RED CELL DISTRIBUTION WIDTH 15.1 % (11.6-17.2); WHITE BLOOD COUNT 9.8 TH/MM3 (4.0-11.0)
[2017-03-17] MEDS ORDERED: CHLORHEXIDINE GLUCONATE 2 % 1 PACK (2 CLOTHS) TOPICAL PRN (14:15)
[2017-03-17] MEDS ORDERED: SODIUM CHLORID 0.9% 500 ML IV PRN (14:15)
[2017-03-17] MEDS ORDERED: POVIDONE IODINE 5% (ANTISEPSIS KIT) 4 APPLICATIONS EACH NARE PRN (14:15)
[2017-03-17] MEDS ORDERED: LACTATED RINGER'S 1000 ML IV PRN (14:15)
[2017-03-17] MEDS ORDERED: METOPROLOL TARTRATE 25 MG TAB PO PRN (14:15)
[2017-03-17 14:29] LABS: BICARBONATE 23.3 MEQ/L (21.0-32.0); CALCIUM 8.9 MG/DL (8.5-10.1); CREATININE 1.18 MG/DL (0.60-1.30)
[2017-03-17] MEDS ORDERED: ceFAZolin 2 GM PREMIX 50 ML ONE (14:39)
[2017-03-17] MEDS ORDERED: THROMBIN (TOPICAL) 20,000 UNIT SPRAY KIT ONE (14:39)
[2017-03-17] MEDS ORDERED: BUPIVACAINE HCL PF 0.5% 30 ML VIAL ONE (14:39)
[2017-03-17] MEDS ORDERED: HEPARIN SODIUM - IV 10,000 UNITS/10 ML VIAL ONE (14:39)
[2017-03-17] MEDS ORDERED: PROTAMINE SULFATE 50 MG/5 ML VIAL ONE (14:40)
--- NOTE | 2017-03-17 15:58 | PD.VS.PN ---
Pre-operative Note Pre-operative diagnosis: L LE claudication, PAD, occluded femoral artery Planned procedure: L groin reconstruction Interval History: Pt has persistent claudication but otherwise feels well. Labs: Laboratory Results Test 03/17/17 13:30 Anion Gap 9 MEQ/L (5-15) Blood Urea Nitrogen 19 MG/DL (7-18) Creatinine 1.18 MG/DL (0.60-1.30) Random Glucose 124 MG/DL (74-106) Calcium Level 8.9 MG/DL (8.5-10.1) Sodium Level 141 MEQ/L (136-145) Potassium Level 4.2 MEQ/L (3.5-5.1) Chloride Level 109 MEQ/L (98-107) Carbon Dioxide Level 23.3 MEQ/L (21.0-32.0) Hematocrit 40.8 % (39.0-51.0) Hemoglobin 13.7 GM/DL (13.0-17.0) Mean Corpuscular Hemoglobin 31.1 PG (27.0-34.0) Mean Corpuscular Hemoglobin Concent 33.5 % (32.0-36.0) Mean Corpuscular Volume 92.8 FL (80.0-100.0) Mean Platelet Volume 7.8 FL (7.0-11.0) Platelet Count 226 TH/MM3 (150-450) Red Blood Count 4.40 MIL/MM3 (4.50-5.90) Red Cell Distribution Width 15.1 % (11.6-17.2) White Blood Count 9.8 TH/MM3 (4.0-11.0) Blood: none needed Imaging: CTA reviewed Orders: NPO Ancef 2g IV OCTOR Post-operative destination: PACU, CPCU Operative site marked: Yes Consent: Informed consent has been obtained from Mango Tucker. I have explained the procedure in detail and discussed the risks, benefits, and potential complications. All questions have been answered. Patient contact information: [phone] Neri Silver MD Mar 17, 2017 15:58
[2017-03-17] MEDS ORDERED: HYDROmorphone HCL PF 2 MG/ML VIAL ONE (16:21)
[2017-03-17] MEDS ORDERED: ACETAMINOPHEN 1000 MG/100 ML 100 ML IV ONE (16:21)
[2017-03-17] MEDS ORDERED: DO NOT ADM ANY ANTICOAGULANT DRUGS PRN (17:59)
--- NOTE | 2017-03-17 18:03 | HHI.PR ---
cc: Neri Silver MD Immediate Post Op Note Procedure Date: Mar 17, 2017 Pre Op Diagnosis: L LE claudication Post Op Diagnosis: L LE claudication, L LOGISTICS AND PLANNING MANAGER occlusion Surgeon: Neri Silver Candy Counter Clerk(s): Trevin Hall Procedure: LEFT iliofemoral bypass w/ 8mm Dacron Findings: occluded LOGISTICS AND PLANNING MANAGER Additional Information: Multiphasic signals in foot at completion of case Complications: none Specimen(s) removed: L LOGISTICS AND PLANNING MANAGER - not for pathology Estimated blood loss: 100mL Anesthesia: General Drains: None Fluids: 1500mL IVF Patient to: PACU Patient Condition: Good Implant/Devices: SEE IMPLANT LOG (if applicable) Date/Time of Procedure: SEE SURGICAL CARE RECORD Neri Silver MD Mar 17, 2017 18:03
[2017-03-17] MEDS ORDERED: LACTULOSE SYRUP 20 GM/30 ML CUP PO PRN (18:15)
[2017-03-17] MEDS ORDERED: SENNOSIDES 8.6 MG TAB PO PRN (18:15)
[2017-03-17] MEDS ORDERED: BISACODYL 10 MG SUPP RECTAL PRN (18:15)
[2017-03-17] MEDS ORDERED: oxyCODONE/ACETAMINOPHEN 5 MG/325 MG TAB PO PRN (18:15)
[2017-03-17] MEDS ORDERED: MORPHINE SULFATE 4 MG/ML INJ IV PUSH PRN (18:15)
[2017-03-17] MEDS ORDERED: *morphine SULFATE 4 MG/ML PERIprocedure ONLY ONE (18:17)
[2017-03-17 19:00] VITALS: PULSE 66
[2017-03-17 20:00] VITALS: PULSE 66
[2017-03-17] MEDS: FAMOTIDINE 20 MG TAB PO SCH (20:22)
[2017-03-17] MEDS: DOCUSATE SODIUM 50 MG/SENNA 8.6 MG TAB PO SCH (20:22)
[2017-03-17] MEDS: ATORVASTATIN 40 MG TAB PO SCH (20:22)
[2017-03-17] MEDS: METOPROLOL TARTRATE 25 MG TAB PO SCH (20:23)
[2017-03-17] MEDS: HYDROmorphone HCL 2 MG TAB PO PRN (20:23)
[2017-03-17 21:00] VITALS: PULSE 64
[2017-03-17 22:00] VITALS: PULSE 66
[2017-03-17 23:00] VITALS: PULSE 74
[2017-03-18] VITALS (24 sets, daily range): BP systolic 111–127; BP diastolic 58–66; PULSE 63–82; RESP 18–20; TEMP 98.8–99; O2SAT 95–96
[2017-03-18] MEDS: HYDROmorphone HCL 2 MG TAB PO PRN ×4 (01:17→21:26)
[2017-03-18 05:41] LABS: HEMATOCRIT 38.4 % (39.0-51.0); HEMOGLOBIN 12.8 GM/DL (13.0-17.0); MEAN CELL VOLUME 93.1 FL (80.0-100.0); MEAN CORPUSCULAR HEMOGLOBIN 31.1 PG (27.0-34.0); MEAN CORPUSCULAR HGB CONC 33.4 % (32.0-36.0); MEAN PLATELET VOLUME 8.1 FL (7.0-11.0); PLATELET COUNT 208 TH/MM3 (150-450); RED BLOOD COUNT 4.12 MIL/MM3 (4.50-5.90); RED CELL DISTRIBUTION WIDTH 15.5 % (11.6-17.2); WHITE BLOOD COUNT 13.8 TH/MM3 (4.0-11.0)
[2017-03-18 05:51] LABS: BICARBONATE 26.5 MEQ/L (21.0-32.0); CALCIUM 8.7 MG/DL (8.5-10.1); CREATININE 1.35 MG/DL (0.60-1.30)
--- NOTE | 2017-03-18 07:14 | PD.VS.PN ---
Subjective POD #: 1 Procedure(s): L iliofemoral bypass Subjective/Hospital Course doing great; pain controlled foot feels good Objective Vitals/I&O Date Time Temp Pulse Resp B/P (MAP) Pulse Ox O2 Delivery O2 Flow Rate FiO2 03/18/17 06:00 69 03/18/17 05:00 69 03/18/17 04:00 68 03/18/17 03:00 69 03/18/17 02:22 17 03/18/17 02:00 70 03/18/17 01:32 18 03/18/17 01:00 72 03/18/17 00:29 17 03/18/17 00:00 70 03/17/17 23:00 74 03/17/17 22:00 66 03/17/17 21:00 64 03/17/17 20:00 66 03/17/17 19:00 66 03/17/17 19:00 98.2 69 13 145/77 (99) 99 Nasal Cannula 2 03/17/17 18:45 69 12 142/72 (95) 100 Nasal Cannula 2 03/17/17 18:30 69 12 147/71 (96) 100 Nasal Cannula 2 03/17/17 18:15 73 14 146/62 (90) 99 Nasal Cannula 2 03/17/17 18:00 78 14 158/77 (104) 99 Nasal Cannula 2 03/17/17 17:57 98.3 80 20 166/79 (108) 99 Simple Mask 6 03/17/17 13:42 98.6 62 18 178/93 (121) 98 03/18/17 03/18/17 03/18/17 07:00 15:00 23:00 Intake Total 480 ml Output Total 600 ml Balance -120 ml Exam: L groin soft, no ecchymosis Provena in place Pulses: palpable PT Laboratory Laboratory Tests Test 03/17/17 13:30 03/18/17 04:45 White Blood Count 9.8 13.8 Red Blood Count 4.40 4.12 Hemoglobin 13.7 12.8 Hematocrit 40.8 38.4 Mean Corpuscular Volume 92.8 93.1 Mean Corpuscular Hemoglobin 31.1 31.1 Mean Corpuscular Hemoglobin Concent 33.5 33.4 Red Cell Distribution Width 15.1 15.5 Platelet Count 226 208 Mean Platelet Volume 7.8 8.1 Neutrophils (%) (Auto) 70.7 Lymphocytes (%) (Auto) 16.6 Monocytes (%) (Auto) 10.7 Eosinophils (%) (Auto) 1.7 Basophils (%) (Auto) 0.3 Neutrophils # (Auto) 6.9 Lymphocytes # (Auto) 1.6 Monocytes # (Auto) 1.0 Eosinophils # (Auto) 0.2 Basophils # (Auto) 0.0 CBC Comment DIFF FINAL Differential Comment Blood Urea Nitrogen 19 19 Creatinine 1.18 1.35 Random Glucose 124 174 Calcium Level 8.9 8.7 Sodium Level 141 140 Potassium Level 4.2 4.5 Chloride Level 109 104 Carbon Dioxide Level 23.3 26.5 Anion Gap 9 10 Estimat Glomerular Filtration Rate 61 53 Assessment and Plan Plan POD#1 s/p L iliofemoral bypass; palpable pulse 1. OOB and ambulate 2. Reg diet, meds Discharge Planning likely tomorrow (Sat, POD#2) Neri Silver MD Mar 18, 2017 07:14
--- NOTE | 2017-03-18 07:23 | MP ---
cc: RAJESH SILVER DATE OF SURGERY March 17, 2017 PREOPERATIVE DIAGNOSES Left extremity claudication. Common femoral artery occlusion POSTOPERATIVE DIAGNOSES Left extremity claudication. Common femoral artery occlusion PROCEDURE Left iliofemoral bypass with 8-mm Dacron. ATTENDING SURGEON Rajesh Silver MD SHOP HAND SURGEON Trevin Hall ANESTHESIA General. INDICATIONS Mr. Tucker is a gentleman who had a percutaneous procedure done several months ago. Since that procedure he has had left lower extremity claudication and a CT scan showed that he had a left common femoral artery occlusion. He is taken to the operating room for surgical repair. DESCRIPTION OF PROCEDURE Informed consent was obtained from the patient. He was taken to the operating room and placed supine on the operating room table. An appropriate time-out was taken to ensure the patient's identity, the operative site and the planned procedure. The administration of 2 grams of Ancef was initiated prior to skin incision and will be discontinued after single preoperative dose. Everyone in the room agreed with the time-out and we proceeded. He was prepped from his nipples to his toes. A vertical incision was made in the patient's left groin and carried down through the subcutaneous tissue with electrocautery. The common femoral artery was identified; it was noted to be pulseless and somewhat scarred in as there was evidence of previous Perclose sutures. We dissected down to the proximal SFA and profunda and all the way up to the external iliac artery including circumflex vessels which were controlled separately. The patient was systemically heparinized and throughout the remainder of the case the ACT was kept greater than 250. Proximal control was obtained of the external iliac artery with profunda clamps and distal control of both the SFA and profunda were obtained with profunda clamps. The entire common femoral artery was resected and the 8-mm Dacron was brought up on the field, spatulated and sewn end-to-end proximally and distally to the external iliac artery and the distal common femoral artery with running 5-0 Prolene suture. At the completion, it was flushed, noted to be hemostatic. There was a nice Doppler signal in the foot and Doppler signals in the profunda and SFA. The wound was irrigated. The heparin was reversed with protamine and the wound was closed with 2-0 Polysorb, 3-0 Polysorb and 4-0 Monocryl. Sponge and needle counts were correct at the end of the case. I was present scrubbed and performed the entire procedure. MD NASRA Colin/VINICIO /9:17 PM /6:34 AM
[2017-03-18] MEDS: CLOPIDOGREL 75 MG TAB PO SCH (08:01)
[2017-03-18] MEDS: DOCUSATE SODIUM 50 MG/SENNA 8.6 MG TAB PO SCH ×2 (08:01→21:26)
[2017-03-18] MEDS: AMIODARONE 200 MG TAB PO SCH (08:01)
[2017-03-18] MEDS: ASPIRIN EC 81 MG TABEC PO SCH (08:01)
[2017-03-18] MEDS: MULTIVITAMINS/MINERALS THERAPEUTIC TAB PO SCH (08:01)
[2017-03-18] MEDS: FENOFIBRATE 145 MG TAB PO SCH (08:01)
[2017-03-18] MEDS: FAMOTIDINE 20 MG TAB PO SCH ×2 (08:01→21:26)
[2017-03-18] MEDS: INSULIN HUMAN NPH/R 70/30 1,000 UNITS/10 ML VIAL SQ SCH ×2 (08:02→15:02)
[2017-03-18] MEDS: METOPROLOL TARTRATE 25 MG TAB PO SCH ×2 (08:03→21:26)
[2017-03-18] MEDS: MORPHINE SULFATE 2 MG/ML INJ IV PUSH PRN ×2 (08:16→17:30)
[2017-03-18] MEDS: ENOXAPARIN SODIUM 40 MG/0.4 ML SYRINGE SQ SCH (17:26)
[2017-03-18] MEDS: ATORVASTATIN 40 MG TAB PO SCH (21:26)
[2017-03-19] VITALS (27 sets, daily range): BP systolic 104–133; BP diastolic 55–78; PULSE 62–82; RESP 16–20; TEMP 98.1–99; O2SAT 96–98
[2017-03-19] MEDS: HYDROmorphone HCL 2 MG TAB PO PRN ×5 (03:57→21:34)
[2017-03-19 04:29] LABS: AUTOMATED NEUTROPHIL # 8.2 TH/MM3 (1.8-7.7); BASOPHIL # 0.1 TH/MM3 (0-0.2); BASOPHIL % 0.4 % (0.0-2.0); EOSINOPHIL % 0.4 % (0.0-4.0); HEMATOCRIT 36.8 % (39.0-51.0); HEMOGLOBIN 12.2 GM/DL (13.0-17.0); LYMPH % 15.6 % (9.0-44.0); LYMPHOCYTE # 1.9 TH/MM3 (1.0-4.8); MEAN CELL VOLUME 92.4 FL (80.0-100.0); MEAN CORPUSCULAR HEMOGLOBIN 30.5 PG (27.0-34.0); MEAN PLATELET VOLUME 7.4 FL (7.0-11.0); MONO % 14.7 % (0.0-8.0); MONOCYTE # 1.8 TH/MM3 (0-0.9); NEUT % 68.9 % (16.0-70.0); PLATELET COUNT 168 TH/MM3 (150-450); RED BLOOD COUNT 3.98 MIL/MM3 (4.50-5.90); RED CELL DISTRIBUTION WIDTH 15.5 % (11.6-17.2)
[2017-03-19] MEDS: INSULIN HUMAN NPH/R 70/30 1,000 UNITS/10 ML VIAL SQ SCH ×2 (06:24→16:00)
[2017-03-19] MEDS: MULTIVITAMINS/MINERALS THERAPEUTIC TAB PO SCH (08:40)
[2017-03-19] MEDS: FAMOTIDINE 20 MG TAB PO SCH ×2 (08:40→21:11)
[2017-03-19] MEDS: FENOFIBRATE 145 MG TAB PO SCH (08:40)
[2017-03-19] MEDS: METOPROLOL TARTRATE 25 MG TAB PO SCH ×2 (08:40→21:11)
[2017-03-19] MEDS: DOCUSATE SODIUM 50 MG/SENNA 8.6 MG TAB PO SCH ×2 (08:40→21:11)
[2017-03-19] MEDS: ASPIRIN EC 81 MG TABEC PO SCH (08:40)
[2017-03-19] MEDS: CLOPIDOGREL 75 MG TAB PO SCH (08:40)
[2017-03-19] MEDS: AMIODARONE 200 MG TAB PO SCH (08:41)
[2017-03-19] MEDS: MORPHINE SULFATE 2 MG/ML INJ IV PUSH PRN (08:42)
--- NOTE | 2017-03-19 09:10 | PD.VS.PN ---
Subjective POD #: 2 Procedure(s): L iliofemoral bypass Subjective/Hospital Course L flank pain last night and cutaneous hypersensitivity foot ok ambulated 5-6 times yesterday Objective Vitals/I&O Date Time Temp Pulse Resp B/P (MAP) Pulse Ox O2 Delivery O2 Flow Rate FiO2 03/19/17 08:00 72 03/19/17 07:30 98.7 73 18 111/61 (78) 97 03/19/17 07:00 74 03/19/17 06:02 71 03/19/17 05:02 18 03/19/17 05:00 74 03/19/17 04:00 76 03/19/17 03:00 99.0 78 20 104/55 (71) 96 03/19/17 03:00 74 03/19/17 02:00 74 03/19/17 01:00 74 03/19/17 00:45 20 03/19/17 00:00 74 03/18/17 23:00 98.8 79 18 111/58 (75) 95 03/18/17 23:00 76 03/18/17 22:00 78 03/18/17 21:00 82 03/18/17 20:00 78 03/18/17 19:00 99.0 80 20 127/66 (86) 96 03/18/17 19:00 78 03/18/17 18:34 74 03/18/17 17:36 65 03/18/17 16:06 67 03/18/17 15:00 69 03/18/17 14:00 74 03/18/17 13:13 76 03/18/17 12:00 74 03/18/17 11:00 69 03/18/17 10:32 75 03/19/17 03/19/17 03/19/17 07:00 15:00 23:00 Intake Total 360 ml Output Total 400 ml Balance -40 ml Exam: L groin soft, minimal erythema Pulses: palpable PT L Laboratory Laboratory Tests Test 03/19/17 04:14 White Blood Count 12.0 Red Blood Count 3.98 Hemoglobin 12.2 Hematocrit 36.8 Mean Corpuscular Volume 92.4 Mean Corpuscular Hemoglobin 30.5 Mean Corpuscular Hemoglobin Concent 33.0 Red Cell Distribution Width 15.5 Platelet Count 168 Mean Platelet Volume 7.4 Neutrophils (%) (Auto) 68.9 Lymphocytes (%) (Auto) 15.6 Monocytes (%) (Auto) 14.7 Eosinophils (%) (Auto) 0.4 Basophils (%) (Auto) 0.4 Neutrophils # (Auto) 8.2 Lymphocytes # (Auto) 1.9 Monocytes # (Auto) 1.8 Eosinophils # (Auto) 0.0 Basophils # (Auto) 0.1 CBC Comment DIFF FINAL Differential Comment Assessment and Plan Plan POD#2 s/p L iliofemoral bypass; palpable pulse 1. Hct stable 2. PT/OOB 3. Pain control Discharge Planning Tuesday (POD#3) Neri Silver MD Mar 19, 2017 09:10
[2017-03-19] MEDS: MAGNESIUM HYDROXIDE SUSP 30 ML CUP PO PRN (15:21)
[2017-03-19] MEDS: ENOXAPARIN SODIUM 40 MG/0.4 ML SYRINGE SQ SCH (16:36)
[2017-03-19] MEDS: ATORVASTATIN 40 MG TAB PO SCH (21:11)
[2017-03-20] VITALS (29 sets, daily range): BP systolic 115–155; BP diastolic 62–80; PULSE 65–79; RESP 16–18; TEMP 97.8–98.5; O2SAT 96–100
[2017-03-20] MEDS: HYDROmorphone HCL 2 MG TAB PO PRN ×5 (00:21→17:45)
--- NOTE | 2017-03-20 08:06 | PD.VS.PN ---
Subjective POD #: 3 Procedure(s): L iliofemoral bypass Subjective/Hospital Course L flank pain last night and cutaneous hypersensitivity hang po Objective Vitals/I&O Date Time Temp Pulse Resp B/P (MAP) Pulse Ox O2 Delivery O2 Flow Rate FiO2 03/20/17 07:34 98.5 73 18 118/63 (81) 98 03/20/17 06:00 76 03/20/17 05:00 74 03/20/17 04:37 98.3 73 16 115/65 (82) 97 03/20/17 04:00 72 03/20/17 03:00 73 03/20/17 02:00 72 03/20/17 01:00 72 03/20/17 00:00 74 03/20/17 00:00 97.9 74 16 136/73 (94) 97 03/19/17 23:00 72 03/19/17 22:00 78 03/19/17 21:00 82 03/19/17 20:00 78 03/19/17 20:00 98.1 79 16 119/78 (92) 97 03/19/17 19:37 21 03/19/17 19:00 76 03/19/17 17:03 73 03/19/17 16:41 76 03/19/17 15:22 98.4 72 18 121/63 (82) 97 03/19/17 15:00 72 03/19/17 14:00 72 03/19/17 13:04 74 03/19/17 12:22 74 03/19/17 11:31 70 03/19/17 11:00 98.3 68 18 133/72 (92) 98 03/19/17 10:40 69 03/19/17 09:44 97 21 03/19/17 09:19 74 03/20/17 03/20/17 03/20/17 07:00 15:00 23:00 Intake Total 720 ml Output Total 850 ml Balance -130 ml Exam: L groin Provena removed mild skin oozing but no hematoma no erythema Pulses: palpable PT Assessment and Plan Plan POD#3 s/p L iliofemoral bypass; palpable pulse 1. toradol x 24h 2. Provena removed 3. dry gauze to wound as needed Discharge Planning Tuesday (POD#4) Neri Silver MD Mar 20, 2017 08:06
[2017-03-20] MEDS: METOPROLOL TARTRATE 25 MG TAB PO SCH ×2 (08:38→20:47)
[2017-03-20] MEDS: FENOFIBRATE 145 MG TAB PO SCH (08:38)
[2017-03-20] MEDS: MULTIVITAMINS/MINERALS THERAPEUTIC TAB PO SCH (08:38)
[2017-03-20] MEDS: ASPIRIN EC 81 MG TABEC PO SCH (08:38)
[2017-03-20] MEDS: AMIODARONE 200 MG TAB PO SCH (08:38)
[2017-03-20] MEDS: CLOPIDOGREL 75 MG TAB PO SCH (08:39)
[2017-03-20] MEDS: DOCUSATE SODIUM 50 MG/SENNA 8.6 MG TAB PO SCH ×2 (08:39→20:48)
[2017-03-20] MEDS: FAMOTIDINE 20 MG TAB PO SCH ×2 (08:39→20:47)
[2017-03-20] MEDS: INSULIN HUMAN NPH/R 70/30 1,000 UNITS/10 ML VIAL SQ SCH ×2 (08:40→17:44)
[2017-03-20] MEDS: KETOROLAC TROMETHAMINE 10 MG TAB PO SCH ×3 (12:06→23:02)
[2017-03-20] MEDS: ENOXAPARIN SODIUM 40 MG/0.4 ML SYRINGE SQ SCH (17:44)
[2017-03-20] MEDS: ATORVASTATIN 40 MG TAB PO SCH (20:48)
[2017-03-21] VITALS (28 sets, daily range): BP systolic 99–131; BP diastolic 56–69; PULSE 62–79; RESP 16–19; TEMP 97.7–98.5; O2SAT 97–100
[2017-03-21 04:07] LABS: HEMATOCRIT 36.5 % (39.0-51.0); HEMOGLOBIN 12.1 GM/DL (13.0-17.0); MEAN CELL VOLUME 91.8 FL (80.0-100.0); MEAN CORPUSCULAR HEMOGLOBIN 30.6 PG (27.0-34.0); MEAN CORPUSCULAR HGB CONC 33.3 % (32.0-36.0); MEAN PLATELET VOLUME 7.8 FL (7.0-11.0); PLATELET COUNT 183 TH/MM3 (150-450); RED BLOOD COUNT 3.97 MIL/MM3 (4.50-5.90); RED CELL DISTRIBUTION WIDTH 15.3 % (11.6-17.2); WHITE BLOOD COUNT 10.8 TH/MM3 (4.0-11.0)
[2017-03-21 04:26] LABS: BICARBONATE 25.4 MEQ/L (21.0-32.0); CALCIUM 8.8 MG/DL (8.5-10.1); CREATININE 1.72 MG/DL (0.60-1.30)
[2017-03-21] MEDS: HYDROmorphone HCL 2 MG TAB PO PRN ×3 (06:10→19:47)
[2017-03-21] MEDS ORDERED: ACETAMINOPHEN 325 MG TAB PO PRN (09:00)
[2017-03-21] MEDS: MULTIVITAMINS/MINERALS THERAPEUTIC TAB PO SCH (09:12)
[2017-03-21] MEDS: INSULIN HUMAN NPH/R 70/30 1,000 UNITS/10 ML VIAL SQ SCH ×2 (09:12→17:32)
[2017-03-21] MEDS: FAMOTIDINE 20 MG TAB PO SCH ×2 (09:13→19:47)
[2017-03-21] MEDS: CLOPIDOGREL 75 MG TAB PO SCH (09:13)
[2017-03-21] MEDS: DOCUSATE SODIUM 50 MG/SENNA 8.6 MG TAB PO SCH ×2 (09:13→19:46)
[2017-03-21] MEDS: METOPROLOL TARTRATE 25 MG TAB PO SCH ×2 (09:13→19:46)
[2017-03-21] MEDS: AMIODARONE 200 MG TAB PO SCH (09:13)
[2017-03-21] MEDS: FENOFIBRATE 145 MG TAB PO SCH (09:13)
[2017-03-21] MEDS: ASPIRIN EC 81 MG TABEC PO SCH (09:13)
--- NOTE | 2017-03-21 09:16 | PD.VS.PN ---
Subjective POD #: 4 Procedure(s): L iliofemoral bypass Subjective/Hospital Course Pt reported improved LEFT sided cutaneous hypersensitivity Pt denied pain this am Pt reported + Flatulence/ NO BM Pt ambulating well Left groin Incision I/C/D without hematoma or swelling Objective Vitals/I&O Date Time Temp Pulse Resp B/P (MAP) Pulse Ox O2 Delivery O2 Flow Rate FiO2 03/21/17 08:00 68 03/21/17 07:50 97.7 69 16 131/63 (85) 97 03/21/17 07:00 67 03/21/17 06:00 65 03/21/17 05:00 64 03/21/17 04:00 73 03/21/17 03:00 69 03/21/17 03:00 98.3 74 17 99/57 (71) 99 03/21/17 02:00 73 03/21/17 01:00 65 03/21/17 00:02 18 03/21/17 00:00 62 03/20/17 23:00 98.1 68 17 117/62 (80) 96 03/20/17 23:00 68 03/20/17 22:47 18 03/20/17 22:00 74 03/20/17 21:00 70 03/20/17 20:00 65 03/20/17 19:59 18 03/20/17 19:00 75 03/20/17 19:00 97.8 79 17 119/80 (93) 98 03/20/17 18:07 79 03/20/17 17:09 72 03/20/17 16:00 70 03/20/17 15:27 97.9 71 18 116/73 (87) 98 03/20/17 15:00 72 03/20/17 14:00 74 03/20/17 13:00 70 03/20/17 12:10 139/69 (92) 03/20/17 12:00 74 03/20/17 11:50 98.5 69 18 155/73 (100) 100 03/20/17 11:00 70 03/20/17 10:07 73 03/21/17 03/21/17 03/21/17 07:00 15:00 23:00 Intake Total 480 ml Output Total 250 ml Balance 230 ml Exam: GENERAL: A&OX3,NAD,GCS15 SKIN: Left groin incision I/C/D w/o swelling or hematoma, mild erythema at the incision line w/o drainage NECK: Supple, trachea midline. No JVD or lymphadenopathy. CARDIOVASCULAR: Regular rate and rhythm without murmurs, gallops, or rubs. RESPIRATORY: Breath sounds equal bilaterally. No accessory muscle use. GASTROINTESTINAL: Abdomen soft, non-tender, nondistended. MUSCULOSKELETAL: No cyanosis, or edema. Palpable R DP Palpable L DP/PT Laboratory Laboratory Tests Test 03/21/17 03:33 White Blood Count 10.8 Red Blood Count 3.97 Hemoglobin 12.1 Hematocrit 36.5 Mean Corpuscular Volume 91.8 Mean Corpuscular Hemoglobin 30.6 Mean Corpuscular Hemoglobin Concent 33.3 Red Cell Distribution Width 15.3 Platelet Count 183 Mean Platelet Volume 7.8 Blood Urea Nitrogen 38 Creatinine 1.72 Random Glucose 110 Calcium Level 8.8 Sodium Level 134 Potassium Level 3.6 Chloride Level 100 Carbon Dioxide Level 25.4 Anion Gap 9 Estimat Glomerular Filtration Rate 40 Assessment and Plan Plan POD#4 s/p L iliofemoral bypass; palpable pulse Pt w/ improved LEFT sided discomfort LE warm with motor intact Plan Continue OOB/Ambulation D/C planning Anayeli CASTILLO [facility]/[place] [phone] Discharge Planning Potentially this afternoon or tomorrow am Anayeli Liu Mar 21, 2017 09:16
[2017-03-21] MEDS: MAGNESIUM HYDROXIDE SUSP 30 ML CUP PO PRN (09:20)
[2017-03-21] MEDS ORDERED: MINERAL OIL ENEMA 118 ML BTL RECTAL ONE (11:00)
[2017-03-21] MEDS ORDERED: GETGO ROLLING W1 MI1 (12:06)
[2017-03-21] MEDS: ENOXAPARIN SODIUM 40 MG/0.4 ML SYRINGE SQ SCH (17:33)
[2017-03-21] MEDS: ATORVASTATIN 40 MG TAB PO SCH (19:46)
[2017-03-22] VITALS (13 sets, daily range): BP systolic 101–121; BP diastolic 57–68; PULSE 62–79; RESP 16–17; TEMP 97.9–98.2; O2SAT 95–97
--- NOTE | 2017-03-22 07:43 | PD.VS.PN ---
Subjective POD #: 5 Procedure(s): L iliofemoral bypass Subjective/Hospital Course Much better pain control. Ambulating Sp po Objective Vitals/I&O Date Time Temp Pulse Resp B/P (MAP) Pulse Ox O2 Delivery O2 Flow Rate FiO2 03/22/17 07:23 98.0 62 16 101/66 (78) 95 03/22/17 07:00 67 03/22/17 06:12 66 03/22/17 05:01 68 03/22/17 04:07 70 03/22/17 03:00 98.2 68 17 111/57 (75) 96 03/22/17 03:00 69 03/22/17 02:00 74 03/22/17 01:00 71 03/22/17 00:00 68 03/21/17 23:00 98.5 69 17 109/56 (73) 99 03/21/17 23:00 70 03/21/17 22:34 17 03/21/17 22:04 70 03/21/17 21:05 69 03/21/17 20:59 17 03/21/17 20:00 72 03/21/17 19:43 98.5 75 17 128/63 (84) 98 03/21/17 19:00 79 03/21/17 18:00 76 03/21/17 17:00 70 03/21/17 16:00 73 03/21/17 15:47 98.2 72 17 107/69 (82) 100 03/21/17 15:00 70 03/21/17 14:00 74 03/21/17 13:00 68 03/21/17 12:00 62 03/21/17 11:13 98.3 73 19 113/67 (82) 97 03/21/17 11:00 62 03/21/17 10:00 68 03/21/17 09:00 74 03/21/17 08:00 68 03/21/17 07:50 97.7 69 16 131/63 (85) 97 03/22/17 03/22/17 03/22/17 07:00 15:00 23:00 Intake Total 720 ml Output Total 1850 ml Balance -1130 ml Exam: L groin mildly ecchymotic Palpable PT Assessment and Plan Plan POD#5 s/p L iliofemoral bypass; palpable pulse Looks great Ready for d/c Discharge Planning Home today Feezor,Neri J MD Mar 22, 2017 07:43
--- NOTE | 2017-03-22 08:33 | PD.VS.DC ---
Discharge Summary Admission Date: Mar 17, 2017 at 12:33 Discharge Date: Mar 22, 2017 Admission Diagnosis: (1) PAD (peripheral artery disease) Discharge Diagnosis: (1) PAD (peripheral artery disease) ICD Codes: I73.9 - Peripheral vascular disease, unspecified Brief History from admission Mr Tucker is a 66/M pt w/ a PMH of L LE claudication, PAD, occluded femoral artery Pt has persistent claudication but otherwise feels well. Procedure(s): L iliofemoral bypass Significant Findings GENERAL: A&OX3,NAD,GCS15 SKIN: Left groin incision I/C/D w/o swelling or hematoma, mild erythema at the incision line w/o drainage NECK: Supple, trachea midline. No JVD or lymphadenopathy. CARDIOVASCULAR: Regular rate and rhythm without murmurs, gallops, or rubs. RESPIRATORY: Breath sounds equal bilaterally. No accessory muscle use. GASTROINTESTINAL: Abdomen soft, non-tender, nondistended. MUSCULOSKELETAL: No cyanosis, or edema. Palpable R DP Palpable L DP/PT Laboratory Tests Test 03/21/17 03:33 Red Blood Count 3.97 MIL/MM3 (4.50-5.90) Hemoglobin 12.1 GM/DL (13.0-17.0) Hematocrit 36.5 % (39.0-51.0) Blood Urea Nitrogen 38 MG/DL (7-18) Creatinine 1.72 MG/DL (0.60-1.30) Random Glucose 110 MG/DL (74-106) Sodium Level 134 MEQ/L (136-145) Estimat Glomerular Filtration Rate 40 ML/MIN (>89) Hospital Course: Mr Tucker is a 66/M pt w/ a PMH of L LE claudication, PAD, occluded femoral artery Pt has persistent claudication Pt s/p L Iliofemoral bypass Successful LEFT LE revascularization Pt with palpable distal pulses and improved claudication Allergies Coded Allergies Type Severity Reaction Last Updated Verified clindamycin Allergy Severe NOT AVAILABLE -ENTERED PER MD COLIN 03/17/17 No morphine Allergy Mild Itching 03/19/17 Yes 1/7/18 1/7/18 03/21/17 03/21/17 03/22/17 03/22/17 06:00 18:00 06:00 18:00 06:00 18:00 Intake Total 720 ml 1436 ml 480 ml 940 ml 720 ml Output Total 850 ml 525 ml 250 ml 1850 ml Balance -130 ml 911 ml 230 ml 940 ml -1130 ml Intake Oral 720 ml 1436 ml 480 ml 940 ml 720 ml Output Urine Total 850 ml 525 ml 250 ml 1850 ml # Voids 3 3 5 5 # Bowel Movements 1 Laboratory Tests Test 03/21/17 03:33 White Blood Count 10.8 TH/MM3 Red Blood Count 3.97 MIL/MM3 Hemoglobin 12.1 GM/DL Hematocrit 36.5 % Mean Corpuscular Volume 91.8 FL Mean Corpuscular Hemoglobin 30.6 PG Mean Corpuscular Hemoglobin Concent 33.3 % Red Cell Distribution Width 15.3 % Platelet Count 183 TH/MM3 Mean Platelet Volume 7.8 FL Blood Urea Nitrogen 38 MG/DL Creatinine 1.72 MG/DL Random Glucose 110 MG/DL Calcium Level 8.8 MG/DL Sodium Level 134 MEQ/L Potassium Level 3.6 MEQ/L Chloride Level 100 MEQ/L Carbon Dioxide Level 25.4 MEQ/L Anion Gap 9 MEQ/L Estimat Glomerular Filtration Rate 40 ML/MIN Orders Procedure Category Date Status Time Hydromorphone MED 03/19/17 In Process (Dilaudid) 10:45 Consult Pt Eval & PT 03/19/17 Logged Treat 09:07 Ketorolac (Toradol) MED 03/20/17 Complete 12:00 Cbc No Diff, Includes LAB 03/21/17 Complete Plts 06:00 Basic Metabolic Panel LAB 03/21/17 Complete (Bmp) 06:00 Mineral Oil Enema MED 03/21/17 Complete (Fleet Mineral Oil Shayla 11:00 Acetaminophen MED 03/21/17 In Process (Tylenol) 09:00 Famotidine (Pepcid) MED 03/21/17 In Process 21:00 Normosol R Inj MED 03/17/17 Complete (Normosol R Inj) 12:00 Lidocaine Pf 1% Inj MED 03/17/17 Complete (Xylocaine-Mpf 1% In 12:00 Phenyleph/Ns 1000 MED 03/17/17 Complete Mcg/10ml Syr (Neosynep 12:00 Ketorolac Inj MED 03/17/17 Complete (Toradol Inj) 12:00 Dexamethasone Inj MED 03/17/17 Complete (Decadron Inj) 12:00 Ondansetron Inj MED 03/17/17 Complete (Zofran Inj) 12:00 Propofol 200 Mg/20 Ml MED 03/17/17 Complete Inj (Diprivan 200 12:00 Attending Discharge DISCHARGE 03/22/17 Transmitted Order Vital Signs Date Time Temp Pulse Resp B/P (MAP) Pulse Ox O2 Delivery O2 Flow Rate FiO2 03/22/17 08:14 79 03/22/17 07:23 98.0 62 16 101/66 (78) 95 03/22/17 07:00 67 03/22/17 06:12 66 03/22/17 05:01 68 03/22/17 04:07 70 03/22/17 03:00 98.2 68 17 111/57 (75) 96 03/22/17 03:00 69 03/22/17 02:00 74 03/22/17 01:00 71 03/22/17 00:00 68 03/21/17 23:00 98.5 69 17 109/56 (73) 99 03/21/17 23:00 70 03/21/17 22:34 17 03/21/17 22:04 70 03/21/17 21:05 69 03/21/17 20:59 17 03/21/17 20:00 72 03/21/17 19:43 98.5 75 17 128/63 (84) 98 03/21/17 19:00 79 03/21/17 18:00 76 03/21/17 17:00 70 03/21/17 16:00 73 03/21/17 15:47 98.2 72 17 107/69 (82) 100 03/21/17 15:00 70 03/21/17 14:00 74 03/21/17 13:00 68 03/21/17 12:00 62 03/21/17 11:13 98.3 73 19 113/67 (82) 97 03/21/17 11:00 62 03/21/17 10:00 68 03/21/17 09:00 74 03/21/17 08:00 68 03/21/17 07:50 97.7 69 16 131/63 (85) 97 03/21/17 07:00 67 03/21/17 06:00 65 03/21/17 05:00 64 03/21/17 04:00 73 03/21/17 03:00 69 03/21/17 03:00 98.3 74 17 99/57 (71) 99 03/21/17 02:00 73 03/21/17 01:00 65 03/21/17 00:02 18 03/21/17 00:00 62 03/20/17 23:00 98.1 68 17 117/62 (80) 96 03/20/17 23:00 68 03/20/17 22:00 74 03/20/17 21:00 70 03/20/17 20:00 65 03/20/17 19:00 75 03/20/17 19:00 97.8 79 17 119/80 (93) 98 03/20/17 18:07 79 03/20/17 17:09 72 03/20/17 16:00 70 03/20/17 15:27 97.9 71 18 116/73 (87) 98 03/20/17 15:00 72 03/20/17 14:00 74 03/20/17 13:00 70 03/20/17 12:10 139/69 (92) 03/20/17 12:00 74 03/20/17 11:50 98.5 69 18 155/73 (100) 100 03/20/17 11:00 70 03/20/17 10:07 73 03/20/17 09:00 72 03/20/17 08:00 72 03/20/17 07:34 98.5 73 18 118/63 (81) 98 03/20/17 07:00 68 03/20/17 06:00 76 03/20/17 05:00 74 03/20/17 04:37 98.3 73 16 115/65 (82) 97 03/20/17 04:00 72 03/20/17 03:00 73 03/20/17 02:00 72 03/20/17 01:00 72 03/20/17 00:00 74 03/20/17 00:00 97.9 74 16 136/73 (94) 97 03/19/17 23:00 72 03/19/17 22:00 78 03/19/17 21:00 82 1/6/18 20:00 78 03/19/17 20:00 98.1 79 16 119/78 (92) 97 03/19/17 19:37 21 03/19/17 19:00 76 03/19/17 17:03 73 03/19/17 16:41 76 03/19/17 15:22 98.4 72 18 121/63 (82) 97 03/19/17 15:00 72 03/19/17 14:00 72 03/19/17 13:04 74 03/19/17 12:22 74 03/19/17 11:31 70 03/19/17 11:00 98.3 68 18 133/72 (92) 98 03/19/17 10:40 69 03/19/17 09:44 97 21 03/19/17 09:19 74 Discharge Condition: Good Discharge Disposition: Discharge Home Discharge Instructions: Maintain a heart healthy diet Activities as tolerated Leave Left groin incision open to air Call the office to report any new onset increased redness, drainage or swelling Your were prescribed a narcotic pain medication which may cause constipation- recommend an over the counter stool softener while taking this medication Do driving while taking your prescribed pain medication as it may causes dizziness Call the office with any questions or concerns F/U in our out pt clinic in 2-3 weeks with a surveillance [place] Anayeli CASTILLO [facility]/[place] [phone] Any questions or concerns: Call [facility] at [facility] [phone] Anayeli Liu Mar 22, 2017 08:33
[2017-03-22] MEDS: MULTIVITAMINS/MINERALS THERAPEUTIC TAB PO SCH (09:16)
[2017-03-22] MEDS: AMIODARONE 200 MG TAB PO SCH (09:16)
[2017-03-22] MEDS: DOCUSATE SODIUM 50 MG/SENNA 8.6 MG TAB PO SCH (09:16)
[2017-03-22] MEDS: INSULIN HUMAN NPH/R 70/30 1,000 UNITS/10 ML VIAL SQ SCH (09:16)
[2017-03-22] MEDS: ASPIRIN EC 81 MG TABEC PO SCH (09:16)
[2017-03-22] MEDS: FENOFIBRATE 145 MG TAB PO SCH (09:16)
[2017-03-22] MEDS: METOPROLOL TARTRATE 25 MG TAB PO SCH (09:16)
[2017-03-22] MEDS: CLOPIDOGREL 75 MG TAB PO SCH (09:16)
[2017-03-22] MEDS: FAMOTIDINE 20 MG TAB PO SCH (09:17)
[2017-03-22] MEDS: HYDROmorphone HCL 2 MG TAB PO PRN (11:58)
== END 2017-03-22 12:27 | disposition home or self-care (01) | DRG 272 ==
LOC: HSDI 12:33 → HCPC 19:07
PROVIDERS: ADMIT Surgery; ATTEND Surgery
PROC: 041J0JJ Bypass Left External Iliac Artery to Left Femoral Artery with Synthetic Substitute, Open Approach (ICD-10-PCS; principal; 2017-03-17 16:01)
DX: E11.51 Type 2 diabetes mellitus with diabetic peripheral angiopathy without gangrene (principal); E11.22 Type 2 diabetes mellitus with diabetic chronic kidney disease; N18.3 Chronic kidney disease, stage 3 (moderate); E66.9 Obesity, unspecified; I70.212 Atherosclerosis of native arteries of extremities with intermittent claudication, left leg; E78.5 Hyperlipidemia, unspecified; I25.2 Old myocardial infarction; I25.10 Atherosclerotic heart disease of native coronary artery without angina pectoris; R20.8 Other disturbances of skin sensation; K21.9 Gastro-esophageal reflux disease without esophagitis; I12.9 Hypertensive chronic kidney disease with stage 1 through stage 4 chronic kidney disease, or unspecified chronic kidney disease; Z68.30 Body mass index [BMI] 30.0-30.9, adult; Z79.4 Long term (current) use of insulin; Z85.820 Personal history of malignant melanoma of skin; Z86.73 Personal history of transient ischemic attack (TIA), and cerebral infarction without residual deficits; Z87.891 Personal history of nicotine dependence; Z88.1 Allergy status to other antibiotic agents; Z98.61 Coronary angioplasty status
CPT/HCPCS: 80048; 82948; 85025; 85027; 86850; 86900; 86901; C1768; J0131; J0690; J1100; J1170; J1644; J1650; J1815; J1885; J2270; J2370; J2405; J2720; J3010; J7120

== ENCOUNTER 2017-03-30 07:21 | Inpatient (IN) | payer OTHER, MEDICARE ==
[~2017-03-30] VITALS: Ht 172.7 cm; Wt 90.0 kg
[~2017-03-30 07:21] MED LIST changes: +AMIO200T PO; -AMIO400T PO; -DEXAMETHASONE SOD PHOS 4 MG/ML VIAL IV ONE; +GETGO ROLLING W1 MI1; -KETOROLAC TROMETHAMINE 30 MG/ML (IVP) VIAL IV PUSH ONE; -LIDOCAINE HCL 1% PF 5 ML SYRINGE OTHER ONE; -NORMOSOL R INJ 1,000 ML IV ONE; -ONDANSETRON HCL 4 MG/2 ML VIAL IV PUSH ONE; -PHENYLEPH/NS 1000 MCG/10 ML SYR IV ONE; -PROPOFOL 200 MG/20 ML AMP IV ONE
[2017-03-30 07:29] VITALS: BP 187/88; PULSE 89; RESP 20; TEMP 98.1; O2SAT 99
[2017-03-30] MEDS ORDERED: SODIUM CHLORIDE 0.9% FLUSH 10 ML FLUSH IV FLUSH PRN ×2 (08:15→15:00)
[2017-03-30 08:18] VITALS: O2SAT 99
--- NOTE | 2017-03-30 08:19 | PD ---
HPI Chief Complaint: Pain: Acute or Chronic Time Seen by Provider: 08:14 Travel History International Travel<30 days: No Contact w/Intl Traveler<30days: No Traveled to known affect area: No History of Present Illness HPI LOCATION: diffuse abdominal pain QUALITY:sharp SEVERITY: 7/10 at onset, now is 1/10 TIMING: worsening over past 2hrs, called 911 DURATION:onset 36 hrs ago after stopped taking his opiate medications CONTACTS:n/a MODIFYING FACTORS:none ASSOCIATED TIME AND SYMPTOMS:denies fever/cold or pale LLE/ n/v/d/ PFSH Past Medical History Heart Rhythm Problems: Yes (HEART MURMUR) Cancer: Yes (MELANOMA ON BACK OF HEAD REMOVED 20 YEARS AGO) Cardiovascular Problems: Yes ([place], PTCA, CAD, AORTIC VALVE REPLACEMENT) High Cholesterol: Yes Chest Pain: No Congestive Heart Failure: No Cerebrovascular Accident: Yes Diabetes: Yes (insulin) Patient Takes Glucophage: No Diminished Hearing: No Endocrine: Yes Gastrointestinal Disorders: Yes (gerd ) GERD: Yes Glaucoma: No Genitourinary: No Hepatitis: No Hiatal Hernia: No Hypertension: Yes Musculoskeletal: No Neurologic: Yes (cva) Psychiatric: No Reproductive: No Respiratory: No Integumentary: Yes (MELANOMA) Migraines: No Myocardial Infarction: Yes Seizures: No Thyroid Disease: No Ulcer: No Past Surgical History Abdominal Surgery: No AICD: No Cardiac Surgery: Yes (ANGIOPLASTY X 2) Joint Replacement: No Pacemaker: No Thoracic Surgery: No Other Surgery: Yes Social History Alcohol Use: Yes (MODERATE) Tobacco Use: No Substance Use: No Allergies-Medications (Allergen,Severity, Reaction): Coded Allergies: clindamycin (Verified Allergy, Severe, NOT AVAILABLE -ENTERED PER MD COLIN, 03/30/17) patient states he had liver damage from this morphine (Verified Allergy, Mild, Itching, 03/30/17) "Feels like ants crawling on me" Reported Meds & Prescriptions Reported Meds & Active Scripts Active Thera M Plus (Multivitamins/Minerals Therapeutic) 1 Tab 1 Tab PO DAILY Dok (Docusate Sodium) 100 Mg Cap 100 Mg PO BID Oxycodone-Acetaminophen 5-325 (Oxycodone HCl/Acetaminophen) 5 Mg-325 Mg Tablet 1 Tab PO Q6HR PRN Metoprolol Tartrate 25 Mg Tab 25 Mg PO Q12HR Reported Amiodarone (Amiodarone HCl) 200 Mg Tab 200 Mg PO DAILY Ranitidine (Ranitidine HCl) 150 Mg Tab 150 Mg PO DAILY Plavix (Clopidogrel Bisulfate) 75 Mg Tab 75 Mg PO DAILY Novolin 70-30 Inj (Insulin Human Isoph/Insulin Regular) 1,000 Unit/10 Ml Vial 60 Units SQ BIDAC dose adjusts based on blood sugar results. he does not take if sugar is below 100 Fenofibrate 160 Mg Tab 160 Mg PO DAILY Atorvastatin (Atorvastatin Calcium) 40 Mg Tab 40 Mg PO HS Aspirin DR (Aspirin) 81 Mg Tabdr 81 Mg PO DAILY Review of Systems Except as stated in HPI: all other systems reviewed are Neg General / Constitutional: No: Fever Eyes: No: Visual changes HENT: No: Headaches Cardiovascular: No: Chest Pain or Discomfort Respiratory: No: Shortness of Breath Gastrointestinal: Positive: Abdominal Pain Genitourinary: No: Dysuria Musculoskeletal: No: Pain Skin: No Rash Neurologic: No: Weakness Psychiatric: No: Depression Endocrine: No: Polydipsia Hematologic/Lymphatic: No: Easy Bruising Physical Exam Narrative GENERAL: SKIN: Warm and dry. HEAD: Atraumatic. Normocephalic. EYES: Pupils equal and round. No scleral icterus. No injection or drainage. ENT: No nasal bleeding or discharge. Mucous membranes pink and moist. NECK: Trachea midline. No JVD. CARDIOVASCULAR: Regular rate and rhythm. RESPIRATORY: No accessory muscle use. Clear to auscultation. Breath sounds equal bilaterally. GASTROINTESTINAL: Abdomen soft, non-tender, nondistended. no rebound....healing incision noted on left femoral triangle area, no cellulitic changes nor streaking. MUSCULOSKELETAL: Extremities without clubbing, cyanosis, or edema. No obvious deformities. NEUROLOGICAL: Awake and alert. No obvious cranial nerve deficits. Motor grossly within normal limits. Five out of 5 muscle strength in the arms and legs. Normal speech. PSYCHIATRIC: Appropriate mood and affect; insight and judgment normal. Data Data Last Documented VS Vital Signs Date Time Temp Pulse Resp B/P (MAP) Pulse Ox O2 Delivery O2 Flow Rate FiO2 03/30/17 07:29 98.1 89 20 187/88 (121) 99 Orders Orders Complete Blood Count With Diff (03/30/17 08:14) Comprehensive Metabolic Panel (03/30/17 08:14) Lipase (03/30/17 08:14) Ct Abd/Pel W/O Iv Contrast (03/30/17 08:14) Iv Access Insert/Monitor (03/30/17 08:14) Ecg Monitoring (03/30/17 08:14) Oximetry (03/30/17 08:14) NPO (03/30/17 08:14) Sodium Chloride 0.9% Flush (Ns Flush) (03/30/17 08:15) MDM Medical Decision Making Medical Screen Exam Complete: Yes Emergency Medical Condition: Yes Medical Record Reviewed: Yes Thaddeus Bethea MD Mar 30, 2017 08:19
[2017-03-30 08:44] LABS: AUTOMATED NEUTROPHIL # 18.6 TH/MM3 (1.8-7.7); BASOPHIL # 0.1 TH/MM3 (0-0.2); BASOPHIL % 0.3 % (0.0-2.0); EOSINOPHIL # 0.1 TH/MM3 (0-0.4); EOSINOPHIL % 0.4 % (0.0-4.0); HEMATOCRIT 41.4 % (39.0-51.0); HEMOGLOBIN 13.5 GM/DL (13.0-17.0); LYMPH % 4.2 % (9.0-44.0); LYMPHOCYTE # 0.9 TH/MM3 (1.0-4.8); MEAN CELL VOLUME 92.3 FL (80.0-100.0); MEAN CORPUSCULAR HEMOGLOBIN 30.2 PG (27.0-34.0); MEAN CORPUSCULAR HGB CONC 32.7 % (32.0-36.0); MEAN PLATELET VOLUME 7.8 FL (7.0-11.0); MONO % 6.5 % (0.0-8.0); MONOCYTE # 1.4 TH/MM3 (0-0.9); NEUT % 88.6 % (16.0-70.0); PLATELET COUNT 367 TH/MM3 (150-450); RED BLOOD COUNT 4.48 MIL/MM3 (4.50-5.90); RED CELL DISTRIBUTION WIDTH 14.6 % (11.6-17.2)
[2017-03-30 09:05] LABS: ALBUMIN 3.4 GM/DL (3.4-5.0); ALT (GPT) 26 U/L (12-78); AST (GOT) 19 U/L (15-37); BICARBONATE 22.1 MEQ/L (21.0-32.0); BLOOD UREA NITROGEN 11 MG/DL (7-18); CHLORIDE 109 MEQ/L (98-107); CREATININE 1.19 MG/DL (0.60-1.30); GLOMERULAR FILTRATION RATE 61 ML/MIN (>89); GLUCOSE,RANDOM 148 MG/DL (74-106); LIPASE 222 U/L (73-393); SODIUM (NA) 139 MEQ/L (136-145)
[2017-03-30 09:07] LABS: ALKALINE PHOSPHATASE 73 U/L (45-117); TOTAL BILIRUBIN ADULT 0.3 MG/DL (0.2-1.0); TOTAL PROTEIN 8.2 GM/DL (6.4-8.2)
--- NOTE | 2017-03-30 09:28 | RADRPT ---
EXAM DATE/TIME: 03/30/2017 08:57 [facility] COMPARISON: No previous studies available for comparison. INDICATIONS : Left groin pain, left flank pain ORAL CONTRAST: No oral contrast ingested. RADIATION DOSE: 18.86 CTDIvol (mGy) MEDICAL HISTORY : Cerebrovascular disease. Hypertension. Cardiovascular diseaseDiabetes, Reflux SURGICAL HISTORY : CABG Left groin surgery ENCOUNTER: Initial ACUITY: 4 - 6 days PAIN SCALE: 6/10 LOCATION: Left Groin TECHNIQUE: Volumetric scanning of the abdomen and pelvis was performed. Using automated exposure control and ad justment of the mA and/or kV according to patient size, radiation dose was kept as low as reasonably achievable to obtain optimal diagnostic quality images. DICOM format image data is available electro nically for review and comparison. FINDINGS: LOWER LUNGS: The visualized lower lungs are clear. LIVER: Homogeneous density without lesion. There is no dilation of the biliary tree. No calcified gallston es. SPLEEN: Normal size without lesion. PANCREAS: Within normal limits. KIDNEYS: Normal in size and shape. There is no mass, stone, or hydronephrosis except for small cyst in the le ft renal collecting system. ADRENAL GLANDS: Within normal limits. VASCULAR: There is no aortic aneurysm. BOWEL/MESENTERY: The stomach, small bowel, and colon demonstrate no acute abnormality. There is no free intraperitone al air or fluid. ABDOMINAL WALL: Within normal limits. RETROPERITONEUM: There is no lymphadenopathy. BLADDER: No wall thickening or mass. REPRODUCTIVE: Within normal limits. INGUINAL: Around the left common femoral artery there is a significant amount of fluid and inflammation. Superi brittny there is a surgical clip in the fluid begins measuring approximately 2.4 cm in AP dimension it e xtends distally just above the bifurcation of the common femoral artery where there is a fluid collec tion measuring 4.9 x 2.6 cm and displacing portions of the sartorius. This could all be postoperative hematoma. There is an overlying inflammation in the fat suggesting cellulitis and may be a few small lymph nodes. MUSCULOSKELETAL: Within normal limits for patient age. CONCLUSION: The patient is reportedly 9 days status post left vascular inguinal surgery. There is significant flu id surrounding the common femoral artery with some overlying soft tissue inflammation and skin thicke kya. There may be very few small lymph nodes in the surrounding subcutaneous tissues. Without IV con trast I cannot rule out a pseudoaneurysm although I don't see obvious mass effect amongst the fluid c ollections. John Fritz MD on March 30, 2017 at 9:22 Board Certified Radiologist. This report was verified electronically.
[2017-03-30] MEDS ORDERED: PIPERACIL-TAZO 4.5 GM PREMIX 100 ML IV STA (10:00)
[2017-03-30] MEDS ORDERED: VANCOMYCIN INJ 1,000 MG in SODIUM CHLOR 0.9% 250 ML INJ 250 ML IV STA (10:00)
[2017-03-30] MEDS ORDERED: HYDROmorphone HCL PF 1 MG/ML VIAL IVS ONE (10:15)
--- NOTE | 2017-03-30 11:15 | RADRPT ---
EXAM DATE/TIME: 03/30/2017 10:03 [facility] COMPARISON: US LEG LEFT ARTERIAL DOPPLER, February 11, 2017, 9:16. INDICATIONS : Pseduoaneurysm. Post left ileo-femoral bypass. MEDICAL HISTORY : CVA. [place]. Hyperchoelsterol. HTN. GERD. Diabetic. CKD. SURGICAL HISTORY : Aortic valve replacement. Angioplasty. Right shoulder surgery. Left knee surgery. ENCOUNTER: Subsequent ACUITY: 1 day PAIN SCORE: 9/10 LOCATION: Left groin. AREA EVALUATED: 7.4 x 5.0 x 2.9 cm complex mass. FINDINGS: The examination demonstrates a 7.4 x 5.0 x 2.9 cm complex mass in the left groin. In this clinical se tting this would be most consistent with hematoma. This should be followed to resolution. No findings to indicate pseudoaneurysm identified. CONCLUSION: 1. Probable hemangioma in the left groin as above. There is no flow within this to suggest pseudoaneu rysm. Negrito Cuba MD on March 30, 2017 at 11:10 Board Certified Radiologist. This report was verified electronically.
[2017-03-30 13:32] VITALS: BP 147/77; PULSE 88; O2SAT 95
[2017-03-30] MEDS ORDERED: NALOXONE HCL 0.4 MG/ML AMP IV PUSH PRN (15:00)
[2017-03-30] MEDS ORDERED: BISACODYL 10 MG SUPP RECTAL PRN (15:00)
[2017-03-30] MEDS ORDERED: SENNOSIDES 8.6 MG TAB PO PRN (15:00)
[2017-03-30] MEDS ORDERED: ACETAMINOPHEN 325 MG TAB PO PRN (15:00)
[2017-03-30] MEDS ORDERED: LACTULOSE SYRUP 20 GM/30 ML CUP PO PRN (15:00)
[2017-03-30] MEDS ORDERED: MAGNESIUM HYDROXIDE SUSP 30 ML CUP PO PRN (15:00)
[2017-03-30] MEDS ORDERED: ONDANSETRON HCL 4 MG/2 ML VIAL IVP PRN (15:00)
[2017-03-30] MEDS ORDERED: HYDROmorphone HCL PF 2 MG/ML VIAL IV ONE (17:30)
[2017-03-30] MEDS: HEPARIN SODIUM - SQ 10,000 UNITS/ML VIAL SQ SCH ×2 (18:16→23:14)
--- NOTE | 2017-03-30 18:43 | HHI.HP ---
[facility] Leandro Olsen M.D. Admission Diagnosis LEFT FEMORAL INCISION CELLULITIS Diagnoses: Chief Complaint: left groin pain Travel History International Travel<30 Days: No Contact w/Intl Traveler <30 Da: No Traveled to Known Affected Are: No History of Present Illness This is 66-year-old male with past medical history significant for diabetes, hypertension, diastolic CHF, aortic stenosis, CAD, hyperlipidemia, status post valve replacement. The patient is status post recent left iliofemoral bypass for leg claudication by Dr. Silver on 03/23/17. The patient presents complaining of increased left groin pain along with erythema and purulent discharge. The patient denies any fevers or chills. He also states that had severe abdominal pain localized mostly in the epigastrium which by now has resolved. The patient denies any chest pain, shortness of breath, dysuria, diarrhea, nausea or vomiting. Review of Systems As per history of present illness, other systems reviewed them and negative Past Family Social History Past Medical History 1. Diabetes type 2. 2. Hypertension. 3. Hyperlipidemia. 4. CAD. 5. Peripheral artery disease. 6. History of aortic stenosis status post aVR. 7. LV dysfunction. Past Surgical History 1. Aortic valve replacement. 2. Mini AVR Reported Medications Reported Meds & Active Scripts Active Thera M Plus (Multivitamins/Minerals Therapeutic) 1 Tab 1 Tab PO DAILY Dok (Docusate Sodium) 100 Mg Cap 100 Mg PO BID Oxycodone-Acetaminophen 5-325 (Oxycodone HCl/Acetaminophen) 5 Mg-325 Mg Tablet 1 Tab PO Q6HR PRN Metoprolol Tartrate 25 Mg Tab 25 Mg PO Q12HR Reported Amiodarone (Amiodarone HCl) 200 Mg Tab 200 Mg PO DAILY Ranitidine (Ranitidine HCl) 150 Mg Tab 150 Mg PO DAILY Plavix (Clopidogrel Bisulfate) 75 Mg Tab 75 Mg PO DAILY Novolin 70-30 Inj (Insulin Human Isoph/Insulin Regular) 1,000 Unit/10 Ml Vial 60 Units SQ BIDAC dose adjusts based on blood sugar results. he does not take if sugar is below 100 Fenofibrate 160 Mg Tab 160 Mg PO DAILY Atorvastatin (Atorvastatin Calcium) 40 Mg Tab 40 Mg PO HS Aspirin DR (Aspirin) 81 Mg Tabdr 81 Mg PO DAILY Allergies: Coded Allergies: clindamycin (Verified Allergy, Severe, NOT AVAILABLE -ENTERED PER MD COLIN, 03/30/17) patient states he had liver damage from this morphine (Verified Allergy, Mild, Itching, 03/30/17) "Feels like ants crawling on me" Active Ordered Medications Current Medications Medications (Trade) Dose Ordered Sig/Gricelda Route Start Time Stop Time Status Last Admin (NS Flush) 2 ml UNSCH PRN IV FLUSH 03/30/17 15:00 (NS Flush) 2 ml BID IV FLUSH 03/30/17 21:00 (Tylenol) 650 mg Q4H PRN PO 03/30/17 15:00 (Zofran Inj) 4 mg Q6H PRN IVP 03/30/17 15:00 (Heparin Inj) 5,000 units Q8H SQ 03/30/17 16:00 03/30/17 18:16 (Narcan Inj) 0.4 mg UNSCH PRN IV PUSH 03/30/17 15:00 (Jeannie-Colace) 1 tab BID PO 03/30/17 21:00 (Milk Of Magnesia Liq) 30 ml Q12H PRN PO 03/30/17 15:00 (Senokot) 17.2 mg Q12H PRN PO 03/30/17 15:00 (Dulcolax Supp) 10 mg DAILY PRN RECTAL 03/30/17 15:00 (Lactulose Liq) 30 ml DAILY PRN PO 03/30/17 15:00 Family History The patient states that his mother had heart disease. Social History The patient denies smoking, he says he quit several years ago. Patient states he has occasional alcohol, perhaps a couple drinks 2 times a week. Denies any illicit drug use. Physical Exam Vital Signs Vital Signs Date Time Temp Pulse Resp B/P (MAP) Pulse Ox O2 Delivery O2 Flow Rate FiO2 03/30/17 17:20 03/30/17 13:32 88 147/77 (100) 95 Room Air 03/30/17 08:18 99 Room Air 03/30/17 07:29 98.1 89 20 187/88 (121) 99 Physical Exam GENERAL: This is a well-nourished, well-developed patient, in no apparent distress. SKIN: No rashes, ecchymoses. Left groin surgical incision looks erythematous, is very tender to palpation and there is a purulent discharge observed coming from it. There is also malodorous odor. HEAD: Atraumatic. Normocephalic. No temporal or scalp tenderness. EYES: Pupils equal round and reactive. Extraocular motions intact. No scleral icterus. No injection or drainage. ENT: Nose without bleeding, purulent drainage or septal hematoma. Throat without erythema, tonsillar hypertrophy or exudate. Uvula midline. Airway patent. NECK: Trachea midline. No JVD or lymphadenopathy. Supple, nontender, no meningeal signs. CARDIOVASCULAR: Regular rate and rhythm without murmurs, gallops, or rubs. RESPIRATORY: Clear to auscultation. Breath sounds equal bilaterally. No wheezes , rales, or rhonchi. GASTROINTESTINAL: Abdomen soft, non-tender, nondistended. No hepato-splenomegaly , or palpable masses. No guarding. MUSCULOSKELETAL: Extremities without clubbing, cyanosis, or edema. No joint tenderness, effusion, or edema noted. No calf tenderness. Negative Homans sign bilaterally. NEUROLOGICAL: Awake and alert. Cranial nerves II through XII intact. Motor and sensory grossly within normal limits. Five out of 5 muscle strength in all muscle groups. Normal speech. Laboratory Laboratory Tests Test 03/30/17 08:15 White Blood Count 21.0 Red Blood Count 4.48 Hemoglobin 13.5 Hematocrit 41.4 Mean Corpuscular Volume 92.3 Mean Corpuscular Hemoglobin 30.2 Mean Corpuscular Hemoglobin Concent 32.7 Red Cell Distribution Width 14.6 Platelet Count 367 Mean Platelet Volume 7.8 Neutrophils (%) (Auto) 88.6 Lymphocytes (%) (Auto) 4.2 Monocytes (%) (Auto) 6.5 Eosinophils (%) (Auto) 0.4 Basophils (%) (Auto) 0.3 Neutrophils # (Auto) 18.6 Lymphocytes # (Auto) 0.9 Monocytes # (Auto) 1.4 Eosinophils # (Auto) 0.1 Basophils # (Auto) 0.1 CBC Comment DIFF FINAL Differential Comment Blood Urea Nitrogen 11 Creatinine 1.19 Random Glucose 148 Total Protein 8.2 Albumin 3.4 Calcium Level 9.0 Alkaline Phosphatase 73 Aspartate Amino Transf (AST/SGOT) 19 Alanine Aminotransferase (ALT/SGPT) 26 Total Bilirubin 0.3 Sodium Level 139 Potassium Level 4.1 Chloride Level 109 Carbon Dioxide Level 22.1 Anion Gap 8 Estimat Glomerular Filtration Rate 61 Lipase 222 Result Diagram: 03/30/1715 03/30/1715 Imaging Last Impressions Abdomen/Pelvis CT 03/30/1714 Signed Impressions: Service Date/Time: Thursday, March 30, 2017 08:57 - CONCLUSION: The patient is reportedly 9 days status post left vascular inguinal surgery. There is significant fluid surrounding the common femoral artery with some overlying soft tissue inflammation and skin thickening. There may be very few small lymph nodes in the surrounding subcutaneous tissues. Without IV contrast I cannot rule out a pseudoaneurysm although I don't see obvious mass effect amongst the fluid collections. John Fritz MD Lower Extremity Ultrasound 03/30/17 0000 Signed Impressions: Service Date/Time: Thursday, March 30, 2017 10:03 - CONCLUSION: 1. Probable hemangioma in the left groin as above. There is no flow within this to suggest pseudoaneurysm. Negrito Cuba MD Caprini VTE Risk Assessment Caprini VTE Risk Assessment: Mod/High Risk (score >= 2) Caprini Risk Assessment Model Point Value = 1 Point Value = 2 Point Value = 3 Point Value = 5 Age 41-60 Minor surgery BMI > 25 kg/m2 Swollen legs Varicose veins or History of unexplained or recurrent spontaneous Oral contraceptives or hormone replacement Sepsis (< 1 month) Serious lung disease, including pneumonia (< 1 month) Abnormal pulmonary function Acute myocardial infarction Congestive heart failure (< 1 month) History of inflammatory bowel disease Medical patient at bed rest Age 61-74 Arthroscopic surgery Major open surgery (> 45 min) Laparoscopic surgery (> 45 min) Malignancy Confined to bed (> 72 hours) Immobilizing plaster cast Central venous access Age >= 75 History of VTE Family history of VTE Factor V Leiden Prothrombin [id number] Lupus anticoagulant Anticardiolipin antibodies Elevated serum homocysteine Heparin-induced thrombocytopenia Other congenital or acquired thrombophilia Stroke (< 1 month) Elective arthroplasty Hip, pelvis, or leg fracture Acute spinal cord injury (< 1 month) Prophylaxis Regimen Total Risk Factor Score Risk Level Prophylaxis Regimen 0-1 Low Early ambulation 2 Moderate Order ONE of the following: *Sequential Compression Device (SCD) *Heparin 5000 units SQ BID 3-4 Higher Order ONE of the following medications: *Heparin 5000 units SQ TID *Enoxaparin/Lovenox 40 mg SQ daily (WT < 150 kg, CrCl > 30 mL/min) *Enoxaparin/Lovenox 30 mg SQ daily (WT < 150 kg, CrCl > 10-29 mL/min) *Enoxaparin/Lovenox 30 mg SQ BID (WT < 150 kg, CrCl > 30 mL/min) AND/OR *Sequential Compression Device (SCD) 5 or more Highest Order ONE of the following medications: *Heparin 5000 units SQ TID (Preferred with Epidurals) *Enoxaparin/Lovenox 40 mg SQ daily (WT < 150 kg, CrCl > 30 mL/min) *Enoxaparin/Lovenox 30 mg SQ daily (WT < 150 kg, CrCl > 10-29 mL/min) *Enoxaparin/Lovenox 30 mg SQ BID (WT < 150 kg, CrCl > 30 mL/min) AND *Sequential Compression Device (SCD) Assessment and Plan Problem List: (1) Cellulitis ICD Code: L03.90 - Cellulitis, unspecified Plan: The patient has cellulitis of the left groin area on exam. Admit the patient medical floor and continue IV antibiotics. The patient is status post IV vancomycin and IV Zosyn in the emergency department. I would continue IV vancomycin and IV Zosyn. Pain control with oral Percocet and IV Dilaudid as needed. Consult infectious disease. We'll consult vascular surgery. (2) Hypertension ICD Code: I10 - Essential (primary) hypertension Status: Chronic Plan: [place] home antihypertensive medications. Blood pressure seems to be stable. (3) Hyperlipemia ICD Code: E78.5 - Hyperlipidemia, unspecified Plan: Continue statin. (4) Diabetes mellitus ICD Code: E11.9 - Type 2 diabetes mellitus without complications Status: Chronic Plan: Continue insulin Novolin 70/30. Place on SSI with insulin NovoLog and monitor Accu-Cheks. Placed on hypoglycemia protocol. (5) Diastolic CHF due to valvular disease ICD Code: I38 - Endocarditis, valve unspecified; I50.30 - Unspecified diastolic (congestive) heart failure Plan: Seems to be stable. Not on diuretics at home. Continue metoprolol tartrate, aspirin. (6) PAD (peripheral artery disease) ICD Code: I73.9 - Peripheral vascular disease, unspecified Plan: Continue aspirin, Plavix. Consult vascular surgery. Assessment and Plan GI prophylaxis: SCDs, heparin subcutaneously. Code Status Full code Discussed Condition With Patient, ED physician. Physician Certification 2 Midnight Certification Type: Admission for Inpatient Services Order for Inpatient Services The services are ordered in accordance with Medicare regulations or non- Medicare payer requirements, as applicable. In the case of services not specified as inpatient-only, they are appropriately provided as inpatient services in accordance with the 2-midnight benchmark. Estimated LOS (days): 2 days is the estimated time the patient will need to remain in the hospital, assuming treatment plan goals are met and no additional complications. Post-Hospital Plan: Home Problem Qualifiers (1) Cellulitis: Qualified Codes: L03.818 - Cellulitis of other sites (2) Hypertension: Qualified Codes: I10 - Essential (primary) hypertension (3) Hyperlipemia: Qualified Codes: E78.5 - Hyperlipidemia, unspecified (4) Diabetes mellitus: Qualified Codes: E11.59 - Type 2 diabetes mellitus with other circulatory complications; Z79.4 - manager intermediate (current) use of insulin Tom Jordan MD Mar 30, 2017 18:43
[2017-03-30] MEDS ORDERED: VANCOMYCIN INJ 200 ML IV SCH (19:15)
[2017-03-30 20:39] VITALS: BP 151/71; PULSE 100; RESP 18; TEMP 101.6; O2SAT 98
[2017-03-30] MEDS: DOCUSATE SODIUM 50 MG/SENNA 8.6 MG TAB PO SCH (21:00)
[2017-03-30] MEDS: ASPIRIN EC 81 MG TABEC PO SCH (21:41)
[2017-03-30] MEDS: PIPERACIL-TAZO 4.5 GM PREMIX 100 ML IV SCH (21:41)
[2017-03-30] MEDS: AMIODARONE 200 MG TAB PO SCH (21:41)
[2017-03-30] MEDS: CLOPIDOGREL 75 MG TAB PO SCH (21:41)
[2017-03-30] MEDS: SODIUM CHLORIDE 0.9% FLUSH 10 ML FLUSH IV FLUSH SCH (21:42)
[2017-03-30 22:54] VITALS: BP 137/78; PULSE 99; RESP 18; TEMP 99.1; O2SAT 97
[2017-03-30] MEDS: VANCOMYCIN 1,000 MG/NS 250 ML IV SCH ×2 (22:56)
[2017-03-30] MEDS: DOCUSATE SODIUM 100 MG CAP PO SCH (22:57)
[2017-03-30] MEDS: METOPROLOL TARTRATE 25 MG TAB PO SCH (22:57)
[2017-03-30] MEDS: FAMOTIDINE 20 MG TAB PO SCH (22:57)
[2017-03-30] MEDS: ATORVASTATIN 40 MG TAB PO SCH (22:57)
[2017-03-30] MEDS: HYDROmorphone HCL PF 1 MG/ML VIAL IV PUSH PRN (22:59)
--- NOTE | 2017-03-30 23:52 | PD.VS.CON ---
History of Present Illness Chief Complaint: Left groin incision cellulitis/pain Consult Requested by: History of Present Illness Afebrile 66/M who has a PMH of L LE claudication, L CARE TRANSITION MGR occlusion. Pt s/p LEFT iliofemoral bypass (03/17/17) Pt presented to the ED this am w/ c/o abdominal pain (epigastric) that radiates to bilateral flank regions Pt also c/o increased pain/erythema to Left groin incision Last BM 3 days ago Pt reported he took a Percocet prior to ED arrival w/o relief LE warm w/ motor intact Palpable R/L DP noted (Anayeli Liu) Past/Family/Social History Past Medical History DM Hypertension. Hyperlipidemia. CAD. Peripheral artery disease. History of aortic stenosis status post aVR. LV dysfunction Past Surgical History Aortic valve replacement Mini AVR LEFT iliofemoral bypass Social History Denied smoking- "quit years ago" ETOH- Socially Denied Illicit drug usage (Anayeli Liu) Home Medications Active Scripts Multiple Vitamins W/ Minerals (Thera M Plus) 1 Tab, 1 TAB PO DAILY for multi vitamin, #30 TAB 2 Refills Prov:Dotty Barrow 02/14/17 Docusate Sodium (Dok) 100 Mg Cap, 100 MG PO BID for Constipation, #60 CAP 0 Refills Prov:Dotty Barrow 02/14/17 Oxycodone HCl/Acetaminophen (Oxycodone-Acetaminophen 5-325) 5 Mg-325 Mg Tablet, 1 TAB PO Q6HR Y for PAIN SCALE 1 TO 5, #40 TAB 0 Refills Prov:Dotty Barrow 02/14/17 Metoprolol Tartrate (Metoprolol Tartrate) 25 Mg Tab, 25 MG PO Q12HR for Blood Pressure Management, #60 TAB 2 Refills Prov:Dotty Barrow 02/14/17 Reported Medications Amiodarone (Amiodarone) 200 Mg Tab, 200 MG PO DAILY for Regulate Heart Beat, TAB 0 Refills 03/17/17 Ranitidine (Ranitidine) 150 Mg Tab, 150 MG PO DAILY for Heartburn Management, # 30 TAB 0 Refills 09/15/16 Clopidogrel (Plavix) 75 Mg Tab, 75 MG PO DAILY for Blood Clot Prevention, #30 TAB 0 Refills 09/15/16 Insulin Human Isophane-Regular 70-30 Inj (Novolin 70-30 Inj) 1,000 Unit/10 Ml Vial, 60 UNITS SQ BIDAC for Blood Sugar Management, ML 0 Refills dose adjusts based on blood sugar results. he does not take if sugar is below 100 09/15/16 Fenofibrate (Fenofibrate) 160 Mg Tab, 160 MG PO DAILY, #30 TAB 0 Refills 09/15/16 Atorvastatin (Atorvastatin) 40 Mg Tab, 40 MG PO HS for Cholesterol Management, # 30 TAB 0 Refills 09/15/[address] (Aspirin DR) 81 Mg Tabdr, 81 MG PO DAILY, TAB 0 Refills 09/15/16 Discontinued Scripts Walker Rolling/GetGo (Walker Rolling/GetGo) 1 Mis Mis, EA .ROUTE DIRECTED, # 1 0 Refills Prov:Anayeli Liu 03/21/17 Coded Allergies: clindamycin (Verified Allergy, Severe, NOT AVAILABLE -ENTERED PER MD COLIN, 03/30/17) patient states he had liver damage from this morphine (Verified Allergy, Mild, Itching, 03/30/17) "Feels like ants crawling on me" Review of Systems Constitutional: DENIES: Fever, Chills Cardiovascular: DENIES: Chest pain, Palpitations, Dyspnea on Exertion Gastrointestinal: COMPLAINS OF: Abdominal pain, DENIES: Black stools, Diarrhea , Nausea, Vomiting Integumentary: COMPLAINS OF: Abnormal pigmentation (L groin erythema clau wound and Proximal/mid section of incision line) Except as stated in HPI: all other systems reviewed are Neg (Anayeli Liu) Physical Exam Vitals/I&O Date Time Temp Pulse Resp B/P (MAP) Pulse Ox O2 Delivery O2 Flow Rate FiO2 03/30/17 20:39 101.6 100 18 151/71 (97) 98 03/30/17 17:20 03/30/17 13:32 88 147/77 (100) 95 Room Air 03/30/17 08:18 99 Room Air 03/30/17 07:29 98.1 89 20 187/88 (121) 99 Neuro: A&OX3 CN 2-12 intact Heart: + S1, S2 Lungs: RRR Abdomen: S/NT LEFT groin incision intact Erythema present clau wound/proximal/distal end of incision No swelling/odor present Vascular: LE warm w/ motor intact Palpable R/L DP Extremities: LE 5/5 UE 5/5 (Anayeli Liu) Laboratory Tests Test 03/30/17 08:15 White Blood Count 21.0 Red Blood Count 4.48 Hemoglobin 13.5 Hematocrit 41.4 Mean Corpuscular Volume 92.3 Mean Corpuscular Hemoglobin 30.2 Mean Corpuscular Hemoglobin Concent 32.7 Red Cell Distribution Width 14.6 Platelet Count 367 Mean Platelet Volume 7.8 Neutrophils (%) (Auto) 88.6 Lymphocytes (%) (Auto) 4.2 Monocytes (%) (Auto) 6.5 Eosinophils (%) (Auto) 0.4 Basophils (%) (Auto) 0.3 Neutrophils # (Auto) 18.6 Lymphocytes # (Auto) 0.9 Monocytes # (Auto) 1.4 Eosinophils # (Auto) 0.1 Basophils # (Auto) 0.1 CBC Comment DIFF FINAL Differential Comment Blood Urea Nitrogen 11 Creatinine 1.19 Random Glucose 148 Total Protein 8.2 Albumin 3.4 Calcium Level 9.0 Alkaline Phosphatase 73 Aspartate Amino Transf (AST/SGOT) 19 Alanine Aminotransferase (ALT/SGPT) 26 Total Bilirubin 0.3 Sodium Level 139 Potassium Level 4.1 Chloride Level 109 Carbon Dioxide Level 22.1 Anion Gap 8 Estimat Glomerular Filtration Rate 61 Lipase 222 Last 48 hours Impressions Abdomen/Pelvis CT 03/30/17 0814 Signed Impressions: Service Date/Time: Thursday, March 30, 2017 08:57 - CONCLUSION: The patient is reportedly 9 days status post left vascular inguinal surgery. There is significant fluid surrounding the common femoral artery with some overlying soft tissue inflammation and skin thickening. There may be very few small lymph nodes in the surrounding subcutaneous tissues. Without IV contrast I cannot rule out a pseudoaneurysm although I don't see obvious mass effect amongst the fluid collections. John Fritz MD Lower Extremity Ultrasound 03/30/17 0000 Signed Impressions: Service Date/Time: Thursday, March 30, 2017 10:03 - CONCLUSION: 1. Probable hemangioma in the left groin as above. There is no flow within this to suggest pseudoaneurysm. Negrito Cuba MD (Anayeli Liu) Assessment and Plan Assessment: (1) Cellulitis (2) PAD (peripheral artery disease) Plan Mr. Tucker is an afebrile 66/M s/p LEFT iliofemoral bypass (03/17/17) Pt presenting with Left groin cellulitis Pt overall doing well post operatively w/ reports of improved claudication Pt w/ sufficient LE perfusion by exam as pt is w/ palpable distal pulses Reviewed CT/US studies- No pseudoaneurysm Pt w/ expected post surgical changes (hematoma) Plan Continue antibiotic therapy Pain management Anayeli CASTILLO [facility] [phone] (Anayeli Liu) Plan Superficial cellulitis and expected radiographic post-operative changes on CT. ok to d/c with po antibiotics and will arrange f/u next week in my clinic (Neir Silver MD) Problem Qualifiers (1) Cellulitis: Qualified Codes: L03.818 - Cellulitis of other sites Anayeli Liu Mar 30, 2017 23:52 Neri Silver MD Mar 31, 2017 16:35
[2017-03-31] VITALS (7 sets, daily range): BP systolic 117–140; BP diastolic 63–78; PULSE 61–74; RESP 16–18; TEMP 97.8–98.8; O2SAT 97–99
[2017-03-31] MEDS: PIPERACIL-TAZO 4.5 GM PREMIX 100 ML IV SCH ×3 (03:55→20:16)
[2017-03-31 08:00] LABS: ALBUMIN 2.7 GM/DL (3.4-5.0); AST (GOT) 4 U/L (15-37); BICARBONATE 26.3 MEQ/L (21.0-32.0); BLOOD UREA NITROGEN 13 MG/DL (7-18); CHLORIDE 104 MEQ/L (98-107); CREATININE 1.23 MG/DL (0.60-1.30); GLOMERULAR FILTRATION RATE 59 ML/MIN (>89); GLUCOSE,RANDOM 162 MG/DL (74-106); SODIUM (NA) 137 MEQ/L (136-145)
[2017-03-31 08:03] LABS: ALKALINE PHOSPHATASE 69 U/L (45-117); ALT (GPT) 15 U/L (12-78); TOTAL BILIRUBIN ADULT 0.6 MG/DL (0.2-1.0); TOTAL PROTEIN 6.9 GM/DL (6.4-8.2)
--- NOTE | 2017-03-31 08:46 | PD.ID.CON ---
History of Present Illness Service ID Consult Requested By Dr. Osborne. Reason for Consult Evaluation and Mment of Left groin cellulitis possible pseudoaneurysm post surgery. Primary Care Physician Leandro Olsen M.D. Diagnoses: History of Present Illness is a 66 y/o CM with PMHx of DM, HTN, diastolic CHF, aortic stenosis, CAD, hyperlipidemia, s/p porcine minimally invasive aortic valve replacement ( AVR) on 02/10/18. Patient subsequently developed Left LE claudication and was found to have a [employer] occlusion. Patient underwent is status post recent left iliofemoral bypass by Dr. Silver on 03/23/17. The patient presents complaining of increased left groin pain along with erythema and purulent discharge. Patient reports fever with chills at home and on presentation to hospital. He also states that had severe abdominal pain localized mostly in the epigastrium. He reports pain in LLQ and left flank radiating to back on admission. He thinks the back pain has subsided but the left side abdominal discomfort persists. The patient denies any Cardiopulm symptoms. Patient denies any Nausea, vomiting at present time. Denies any diarrhea or hematochezia. ID consulted for evaluation and Mment of cellulitis at site of surgery. Review of Systems Constitutional: COMPLAINS OF: Fever, Chills, DENIES: Diaphoretic episodes, Fatigue, Weight gain, Weight loss, Dizziness, Change in appetite, Night Sweats Endocrine: DENIES: Heat/cold intolerance, Polydipsia, Polyuria, Polyphagia Eyes: DENIES: Blurred vision, Diplopia, Eye inflammation, Eye pain, Vision loss , Photosensitivity, Double Vision Ears, nose, mouth, throat: DENIES: Tinnitus, Hearing loss, Vertigo, Nasal discharge, Oral lesions, Throat pain, Hoarseness, Ear Pain, Running Nose, Epistaxis, Sinus Pain, Toothache, Odynophagia Respiratory: DENIES: Apneas, Cough, Snoring, Wheezing, Hemoptysis, Sputum production, Shortness of breath Cardiovascular: DENIES: Chest pain, Palpitations, Syncope, Dyspnea on Exertion , PND, Lower Extremity Edema, Orthopnea, Claudication Gastrointestinal: COMPLAINS OF: Abdominal pain, DENIES: Black stools, Bloody stools, Constipation, Diarrhea, Nausea, Vomiting, Difficulty Swallowing, Anorexia Genitourinary: DENIES: Sexual dysfunction, Urinary frequency, Urinary incontinence, Urgency, Hematuria, Dysuria, Nocturia, Penile Discharge, Testicular Pain, Testicular Swelling Musculoskeletal: DENIES: Joint pain, Muscle aches, Stiffness, Joint Swelling, Back pain, Neck pain Integumentary: COMPLAINS OF: Abnormal pigmentation, DENIES: Nail changes, Pruritus, Rash Hematologic/lymphatic: DENIES: Bruising, Lymphadenopathy Immunologic/allergic: DENIES: Eczema, Urticaria Neurologic: DENIES: Abnormal gait, Headache, Localized weakness, Paresthesias, Seizures, Speech Problems, Tremor, Poor Balance Psychiatric: DENIES: Anxiety, Confusion, Mood changes, Depression, Hallucinations, Agitation, Suicidal Ideation, Homicidal Ideation, Delusions Except as stated in HPI: all other systems reviewed are Neg Past Family Social History Allergies: Coded Allergies: clindamycin (Verified Allergy, Severe, NOT AVAILABLE -ENTERED PER MD COLIN, 03/30/17) patient states he had liver damage from this morphine (Verified Allergy, Mild, Itching, 03/30/17) "Feels like ants crawling on me" Past Medical History 1. Diabetes type 2. 2. Hypertension. 3. Hyperlipidemia. 4. CAD. 5. Peripheral artery disease. 6. History of aortic stenosis status post aVR. 7. LV dysfunction. Past Surgical History 1. Aortic valve replacement. 2. Mini AVR Reported Medications Reported Meds & Active Scripts Active Thera M Plus (Multivitamins/Minerals Therapeutic) 1 Tab 1 Tab PO DAILY Dok (Docusate Sodium) 100 Mg Cap 100 Mg PO BID Oxycodone-Acetaminophen 5-325 (Oxycodone HCl/Acetaminophen) 5 Mg-325 Mg Tablet 1 Tab PO Q6HR PRN Metoprolol Tartrate 25 Mg Tab 25 Mg PO Q12HR Reported Amiodarone (Amiodarone HCl) 200 Mg Tab 200 Mg PO DAILY Ranitidine (Ranitidine HCl) 150 Mg Tab 150 Mg PO DAILY Plavix (Clopidogrel Bisulfate) 75 Mg Tab 75 Mg PO DAILY Novolin 70-30 Inj (Insulin Human Isoph/Insulin Regular) 1,000 Unit/10 Ml Vial 60 Units SQ BIDAC dose adjusts based on blood sugar results. he does not take if sugar is below 100 Fenofibrate 160 Mg Tab 160 Mg PO DAILY Atorvastatin (Atorvastatin Calcium) 40 Mg Tab 40 Mg PO HS Aspirin DR (Aspirin) 81 Mg Tabdr 81 Mg PO DAILY Active Ordered Medications Current Medications Medications (Trade) Dose Ordered Sig/Gricelda Route Start Time Stop Time Status Last Admin (NS Flush) 2 ml UNSCH PRN IV FLUSH 03/30/17 15:00 (NS Flush) 2 ml BID IV FLUSH 03/30/17 21:00 03/30/17 21:42 (Tylenol) 650 mg Q4H PRN PO 03/30/17 15:00 03/30/17 21:40 (Zofran Inj) 4 mg Q6H PRN IVP 03/30/17 15:00 (Heparin Inj) 5,000 units Q8H SQ 03/30/17 16:00 03/30/17 23:14 (Narcan Inj) 0.4 mg UNSCH PRN IV PUSH 03/30/17 15:00 (Jeannie-Colace) 1 tab BID PO 03/30/17 21:00 (Milk Of Magnesia Liq) 30 ml Q12H PRN PO 03/30/17 15:00 (Senokot) 17.2 mg Q12H PRN PO 03/30/17 15:00 (Dulcolax Supp) 10 mg DAILY PRN RECTAL 03/30/17 15:00 (Lactulose Liq) 30 ml DAILY PRN PO 03/30/17 15:00 (Cordarone) 200 mg DAILY PO 03/30/17 20:00 03/30/17 21:41 (Ecotrin Ec) 81 mg DAILY PO 03/30/17 20:00 03/30/17 21:41 (Lipitor) 40 mg HS PO 03/30/17 21:00 03/30/17 22:57 (Plavix) 75 mg DAILY PO 03/30/17 20:00 03/30/17 21:41 (Colace) 100 mg BID PO 03/30/17 21:00 03/30/17 22:57 (NovoLIN 70/30 INJ) 60 units BIDAC SQ 03/31/17 07:00 (Lopressor) 25 mg Q12HR PO 03/30/17 21:00 03/30/17 22:57 (Theragran M Tab) 1 tab DAILY PO 03/31/17 09:00 (Tricor) 145 mg DAILY PO 03/31/17 09:00 (Pepcid) 20 mg BID PO 03/30/17 21:00 03/30/17 22:57 Piperacillin Sod/ Tazobactam Sod 100 ml @ 200 mls/hr Q8H IV 03/30/17 20:00 03/31/17 03:55 Vancomycin HCl 1000 mg/Sodium Chloride 250 ml @ 250 mls/hr Q12H IV 03/30/17 21:00 03/30/17 22:56 (Dilaudid Pf Inj) 0.5 mg Q4H PRN IV PUSH 03/30/17 22:15 03/30/17 22:59 Family History The patient states that his mother had heart disease. Social History The patient denies smoking, he says he quit several years ago. Patient states he has occasional alcohol, perhaps a couple drinks 2 times a week. Denies any illicit drug use. Physical Exam Vital Signs Vital Signs Date Time Temp Pulse Resp B/P (MAP) Pulse Ox O2 Delivery O2 Flow Rate FiO2 03/31/17 08:08 98.1 71 16 131/68 (89) 97 03/31/17 03:50 97.8 66 18 117/78 (91) 98 03/31/17 00:24 98.8 74 18 128/72 (90) 97 03/30/17 23:41 18 03/30/17 22:54 99.1 99 18 137/78 (97) 97 03/30/17 20:39 101.6 100 18 151/71 (97) 98 03/30/17 17:20 03/30/17 13:32 88 147/77 (100) 95 Room Air Physical Exam GENERAL: This is a well-nourished, well-developed patient, in no apparent distress. SKIN: No rashes, ecchymoses or lesions. Cool and dry. HEAD: Atraumatic. Normocephalic. No temporal or scalp tenderness. EYES: Pupils equal round and reactive. Extraocular motions intact. No scleral icterus. No injection or drainage. ENT: Nose without bleeding, purulent drainage or septal hematoma. Throat without erythema, tonsillar hypertrophy or exudate. Uvula midline. Airway patent. NECK: Trachea midline. Supple, nontender, no meningeal signs. CARDIOVASCULAR: Regular rate and rhythm. RESPIRATORY: Clear to auscultation. Breath sounds equal bilaterally. No wheezes , rales, or rhonchi. GASTROINTESTINAL: Abdomen soft, non-tender, nondistended. Left LQ tenderness, no rebound or rigidity. MUSCULOSKELETAL: Extremities without clubbing, cyanosis, or edema. NEUROLOGICAL: Awake and alert. Non focal exam. Left groin with linear surgical scar with erythema, tenderness and place of yellowish green discharge at places. IV line sites with no e.o infection. Laboratory Laboratory Tests Test 03/31/17 06:35 Blood Urea Nitrogen 13 Creatinine 1.23 Random Glucose 162 Total Protein 6.9 Albumin 2.7 Calcium Level 9.0 Alkaline Phosphatase 69 Aspartate Amino Transf (AST/SGOT) 4 Alanine Aminotransferase (ALT/SGPT) 15 Total Bilirubin 0.6 Sodium Level 137 Potassium Level 3.7 Chloride Level 104 Carbon Dioxide Level 26.3 Anion Gap 7 Estimat Glomerular Filtration Rate 59 Date/Time Source Procedure Growth Status 03/31/17 03:50 Wound Groin Gram Stain Pending Received 03/31/17 03:50 Wound Groin Wound Culture Pending Received Result Diagram: 03/30/17 0815 03/31/17 0635 Imaging Last Impressions Abdomen/Pelvis CT 03/30/17 0814 Signed Impressions: Service Date/Time: Thursday, March 30, 2017 08:57 - CONCLUSION: The patient is reportedly 9 days status post left vascular inguinal surgery. There is significant fluid surrounding the common femoral artery with some overlying soft tissue inflammation and skin thickening. There may be very few small lymph nodes in the surrounding subcutaneous tissues. Without IV contrast I cannot rule out a pseudoaneurysm although I don't see obvious mass effect amongst the fluid collections. John Fritz MD Lower Extremity Ultrasound 03/30/17 0000 Signed Impressions: Service Date/Time: Thursday, March 30, 2017 10:03 - CONCLUSION: 1. Probable hemangioma in the left groin as above. There is no flow within this to suggest pseudoaneurysm. Negrito Cuba MD Assessment and Plan Assessment and Plan Left groin cellulitis. s/p porcine minimally invasive aortic valve replacement (AVR) on 02/10/18. s/p left iliofemoral bypass by Dr. Silver on 03/23/17. Recs Continue Zosyn IV Continue Vanco IV (target 10-15) Check blood cultures. Patient presented with fevers, temp 101 F, and WBC 21 with recent valve and vascular surgery would like to make sure bacteremia ruled out to prevent seeding. Check CRP(for trending to assess response) d/w RN to make sure patient changes undergarments daily and keeps area clean. Also wear loose cotton clothes and avoid abrasion of the surgical site area. Follow cultures Follow clinically. d/w Tami Membreno MD Mar 31, 2017 08:45
[2017-03-31] MEDS: MULTIVITAMINS/MINERALS THERAPEUTIC TAB PO SCH (09:24)
[2017-03-31] MEDS: CLOPIDOGREL 75 MG TAB PO SCH (09:24)
[2017-03-31] MEDS: FENOFIBRATE 145 MG TAB PO SCH (09:24)
[2017-03-31] MEDS: DOCUSATE SODIUM 50 MG/SENNA 8.6 MG TAB PO SCH ×2 (09:24→20:17)
[2017-03-31] MEDS: FAMOTIDINE 20 MG TAB PO SCH ×2 (09:25→20:16)
[2017-03-31] MEDS: ASPIRIN EC 81 MG TABEC PO SCH (09:25)
[2017-03-31] MEDS: METOPROLOL TARTRATE 25 MG TAB PO SCH ×2 (09:25→20:16)
[2017-03-31] MEDS: HEPARIN SODIUM - SQ 10,000 UNITS/ML VIAL SQ SCH ×3 (09:26→23:00)
[2017-03-31] MEDS: ACETAMINOPHEN 325 MG TAB PO PRN (09:26)
[2017-03-31] MEDS: SODIUM CHLORIDE 0.9% FLUSH 10 ML FLUSH IV FLUSH SCH ×2 (09:27→20:16)
[2017-03-31] MEDS: AMIODARONE 200 MG TAB PO SCH (09:27)
[2017-03-31] MEDS: INSULIN HUMAN NPH/R 70/30 1,000 UNITS/10 ML VIAL SQ SCH ×2 (09:27→18:31)
[2017-03-31] MEDS: VANCOMYCIN 1,000 MG/NS 250 ML IV SCH ×2 (09:28)
[2017-03-31] MEDS: DOCUSATE SODIUM 100 MG CAP PO SCH ×2 (09:29→20:16)
[2017-03-31] MEDS ORDERED: Vancomycin Consult Pharmacy 1 EA OTHER SCH ×2 (11:00→15:15)
[2017-03-31 11:13] LABS: AUTOMATED NEUTROPHIL # 11.5 TH/MM3 (1.8-7.7); BASOPHIL % 0.2 % (0.0-2.0); EOSINOPHIL # 0.1 TH/MM3 (0-0.4); EOSINOPHIL % 0.6 % (0.0-4.0); HEMATOCRIT 38.5 % (39.0-51.0); HEMOGLOBIN 12.6 GM/DL (13.0-17.0); LYMPH % 7.4 % (9.0-44.0); MEAN CELL VOLUME 91.1 FL (80.0-100.0); MEAN CORPUSCULAR HEMOGLOBIN 29.8 PG (27.0-34.0); MEAN CORPUSCULAR HGB CONC 32.7 % (32.0-36.0); MEAN PLATELET VOLUME 7.2 FL (7.0-11.0); MONO % 7.7 % (0.0-8.0); MONOCYTE # 1.1 TH/MM3 (0-0.9); NEUT % 84.1 % (16.0-70.0); PLATELET COUNT 265 TH/MM3 (150-450); RED BLOOD COUNT 4.22 MIL/MM3 (4.50-5.90); RED CELL DISTRIBUTION WIDTH 14.7 % (11.6-17.2); WHITE BLOOD COUNT 13.7 TH/MM3 (4.0-11.0)
[2017-03-31] MEDS ORDERED: SUGAMMADEX SODIUM 200 MG/2 ML VIAL IV PUSH ONE (11:41)
--- NOTE | 2017-03-31 14:19 | HHI.PR ---
Subjective Remarks Patient in the chair says she feels improved today. No pain in his left groin . no fever or chills. No more abdominal pain. No n.v.d.c, Objective Vitals Vital Signs Date Time Temp Pulse Resp B/P (MAP) Pulse Ox O2 Delivery O2 Flow Rate FiO2 03/31/17 11:44 98.1 61 18 140/76 (97) 99 03/31/17 08:08 98.1 71 16 131/68 (89) 97 03/31/17 03:50 97.8 66 18 117/78 (91) 98 03/31/17 00:24 98.8 74 18 128/72 (90) 97 03/30/17 23:41 18 03/30/17 22:54 99.1 99 18 137/78 (97) 97 03/30/17 20:39 101.6 100 18 151/71 (97) 98 03/30/17 17:20 I/O 03/30/17 03/30/17 03/30/17 03/31/17 03/31/17 03/31/17 07:00 15:00 23:00 07:00 15:00 23:00 Intake Total 100 ml 580 ml Output Total 900 ml Balance 100 ml -320 ml Intake Oral 480 ml IV Total 100 ml 100 ml Output Urine Total 900 ml Result Diagram: 03/31/17 1041 03/31/17 0635 Imaging Last Impressions Abdomen/Pelvis CT 03/30/17 0814 Signed Impressions: Service Date/Time: Thursday, March 30, 2017 08:57 - CONCLUSION: The patient is reportedly 9 days status post left vascular inguinal surgery. There is significant fluid surrounding the common femoral artery with some overlying soft tissue inflammation and skin thickening. There may be very few small lymph nodes in the surrounding subcutaneous tissues. Without IV contrast I cannot rule out a pseudoaneurysm although I don't see obvious mass effect amongst the fluid collections. John Fritz MD Lower Extremity Ultrasound 03/30/17 0000 Signed Impressions: Service Date/Time: Thursday, March 30, 2017 10:03 - CONCLUSION: 1. Probable hemangioma in the left groin as above. There is no flow within this to suggest pseudoaneurysm. Negrito Cuba MD Objective Remarks GENERAL: This is a well-nourished, well-developed patient, in no apparent distress. SKIN: No rashes, ecchymoses. Left groin surgical incision erythematous, is very tender to palpation and there is mild purulent discharge. CARDIOVASCULAR: Regular rate and rhythm without murmurs, gallops, or rubs. RESPIRATORY: Clear to auscultation. Breath sounds equal bilaterally. No wheezes , rales, or rhonchi. GASTROINTESTINAL: Abdomen soft, non-tender, nondistended. No hepato-splenomegaly , or palpable masses. No guarding. MUSCULOSKELETAL: Extremities without clubbing, cyanosis, or edema. No joint tenderness, effusion, or edema noted. No calf tenderness. Negative Homans sign bilaterally. NEUROLOGICAL: Awake and alert. Cranial nerves II through XII intact. Motor and sensory grossly within normal limits. Five out of 5 muscle strength in all muscle groups. Normal speech. A/P Problem List: (1) Cellulitis ICD Code: L03.90 - Cellulitis, unspecified (2) Hypertension ICD Code: I10 - Essential (primary) hypertension Status: Chronic (3) Hyperlipemia ICD Code: E78.5 - Hyperlipidemia, unspecified (4) Diabetes mellitus ICD Code: E11.9 - Type 2 diabetes mellitus without complications Status: Chronic (5) Diastolic CHF due to valvular disease ICD Code: I38 - Endocarditis, valve unspecified; I50.30 - Unspecified diastolic (congestive) heart failure (6) PAD (peripheral artery disease) ICD Code: I73.9 - Peripheral vascular disease, unspecified Assessment and Plan (1) Cellulitis ICD Code: L03.90 - Cellulitis, unspecified Plan: The patient has cellulitis of the left groin area Continue IV vancomycin and IV Zosyn. Pain control with oral Percocet and IV Dilaudid as needed. Consult infectious disease. Consult vascular surgery. Imaging reviewed no pseudoaneurysm (2) Hypertension ICD Code: I10 - Essential (primary) hypertension Status: Chronic Plan: [facility] home antihypertensive medications. Blood pressure seems to be stable. (3) Hyperlipemia ICD Code: E78.5 - Hyperlipidemia, unspecified Plan: Continue statin. (4) Diabetes mellitus ICD Code: E11.9 - Type 2 diabetes mellitus without complications Status: Chronic Plan: Continue insulin Novolin 70/30. Place on SSI with insulin NovoLog and monitor Accu-Cheks. Placed on hypoglycemia protocol. (5) Diastolic CHF due to valvular disease ICD Code: I38 - Endocarditis, valve unspecified; I50.30 - Unspecified diastolic (congestive) heart failure Plan: Seems to be stable. Not on diuretics at home. Continue metoprolol tartrate, aspirin. (6) PAD (peripheral artery disease) ICD Code: I73.9 - Peripheral vascular disease, unspecified Plan: Continue aspirin, Plavix. Consult vascular surgery. Assessment and Plan GI prophylaxis: SCDs, heparin subcutaneously. Code Status Full code Discussed Condition With Patient, nurse, Dr Gallagher ID Problem Qualifiers (1) Cellulitis: Qualified Codes: L03.818 - Cellulitis of other sites (2) Hypertension: Qualified Codes: I10 - Essential (primary) hypertension (3) Hyperlipemia: Qualified Codes: E78.5 - Hyperlipidemia, unspecified (4) Diabetes mellitus: Qualified Codes: E11.59 - Type 2 diabetes mellitus with other circulatory complications; Z79.4 - correction (current) use of insulin Sandhya Berkoiwtz MD Mar 31, 2017 14:19
[2017-03-31] MEDS ORDERED: GLUCAGON 1 MG/ML VIAL OTHER PRN (15:15)
[2017-03-31] MEDS ORDERED: DEXTROSE 50% IN WATER 50 ML VIAL(D50) IV PUSH PRN (15:15)
[2017-03-31] MEDS: HYDROmorphone HCL PF 1 MG/ML VIAL IV PUSH PRN ×2 (17:15→22:59)
[2017-03-31] MEDS: INSULIN ASPART SUPPLEMENTAL SCALE SQ SCH ×2 (18:30→21:12)
[2017-03-31] MEDS: ATORVASTATIN 40 MG TAB PO SCH (20:16)
[2017-03-31] MEDS ORDERED: VANCOMYCIN INJ 1,750 MG in SODIUM CHLORID 0.9% 500 ML INJ 500 ML IV SCH (21:00)
[2017-04-01] MEDS: PIPERACIL-TAZO 4.5 GM PREMIX 100 ML IV SCH ×2 (04:17→11:59)
[2017-04-01 05:29] VITALS: BP 127/72; PULSE 72; RESP 17; TEMP 98.4; O2SAT 98
[2017-04-01 06:08] LABS: AUTOMATED NEUTROPHIL # 9.1 TH/MM3 (1.8-7.7); BASOPHIL % 0.2 % (0.0-2.0); EOSINOPHIL # 0.1 TH/MM3 (0-0.4); EOSINOPHIL % 1.1 % (0.0-4.0); HEMATOCRIT 34.9 % (39.0-51.0); HEMOGLOBIN 11.5 GM/DL (13.0-17.0); LYMPH % 11.4 % (9.0-44.0); LYMPHOCYTE # 1.3 TH/MM3 (1.0-4.8); MEAN CELL VOLUME 90.7 FL (80.0-100.0); MEAN CORPUSCULAR HGB CONC 33.1 % (32.0-36.0); MEAN PLATELET VOLUME 7.4 FL (7.0-11.0); MONO % 8.8 % (0.0-8.0); NEUT % 78.5 % (16.0-70.0); PLATELET COUNT 257 TH/MM3 (150-450); RED BLOOD COUNT 3.85 MIL/MM3 (4.50-5.90); RED CELL DISTRIBUTION WIDTH 14.8 % (11.6-17.2); WHITE BLOOD COUNT 11.5 TH/MM3 (4.0-11.0)
[2017-04-01 06:39] LABS: BICARBONATE 25.3 MEQ/L (21.0-32.0); CALCIUM 8.3 MG/DL (8.5-10.1); CREATININE 1.1 MG/DL (0.60-1.30)
[2017-04-01 08:20] VITALS: BP 133/82; PULSE 64; RESP 18; TEMP 98; O2SAT 96
[2017-04-01] MEDS: FENOFIBRATE 145 MG TAB PO SCH (09:09)
[2017-04-01] MEDS: FAMOTIDINE 20 MG TAB PO SCH (09:10)
[2017-04-01] MEDS: ASPIRIN EC 81 MG TABEC PO SCH (09:10)
[2017-04-01] MEDS: MULTIVITAMINS/MINERALS THERAPEUTIC TAB PO SCH (09:10)
[2017-04-01] MEDS: METOPROLOL TARTRATE 25 MG TAB PO SCH (09:10)
[2017-04-01] MEDS: AMIODARONE 200 MG TAB PO SCH (09:10)
[2017-04-01] MEDS: CLOPIDOGREL 75 MG TAB PO SCH (09:10)
[2017-04-01] MEDS: HEPARIN SODIUM - SQ 10,000 UNITS/ML VIAL SQ SCH (09:11)
[2017-04-01] MEDS: DOCUSATE SODIUM 50 MG/SENNA 8.6 MG TAB PO SCH (09:11)
[2017-04-01] MEDS: INSULIN HUMAN NPH/R 70/30 1,000 UNITS/10 ML VIAL SQ SCH (09:12)
[2017-04-01] MEDS: INSULIN ASPART SUPPLEMENTAL SCALE SQ SCH ×2 (09:12→13:25)
[2017-04-01] MEDS: SODIUM CHLORIDE 0.9% FLUSH 10 ML FLUSH IV FLUSH SCH (09:13)
[2017-04-01] MEDS: DOCUSATE SODIUM 100 MG CAP PO SCH (09:13)
[2017-04-01] MEDS: HYDROmorphone HCL PF 1 MG/ML VIAL IV PUSH PRN (11:58)
[2017-04-01 12:29] VITALS: BP 135/81; PULSE 65; RESP 18; TEMP 97.7; O2SAT 99
--- NOTE | 2017-04-01 13:45 | HHI.PR ---
Subjective Remarks Feels better no pain at this time at the surgical site. dressing on c/d/i no drainage. No fever or chills overnight. No n/v/d/c. Ambulates. Objective Vitals Vital Signs Date Time Temp Pulse Resp B/P (MAP) Pulse Ox O2 Delivery O2 Flow Rate FiO2 04/01/17 12:29 97.7 65 18 135/81 (99) 99 04/01/17 08:20 98.0 64 18 133/82 (99) 96 04/01/17 05:29 98.4 72 17 127/72 (90) 98 03/31/17 23:40 18 03/31/17 22:50 98.0 69 16 122/63 (82) 99 03/31/17 19:49 98.2 72 16 136/71 (92) 98 03/31/17 16:00 97.8 66 18 137/77 (97) 98 I/O 03/31/17 03/31/17 03/31/17 04/01/17 04/01/17 04/01/17 07:00 15:00 23:00 07:00 15:00 23:00 Intake Total 580 ml 1773 ml 1080 ml Output Total 900 ml 1000 ml 700 ml Balance -320 ml 773 ml 380 ml Intake Oral 480 ml 1773 ml 480 ml IV Total 100 ml 600 ml Output Urine Total 900 ml 1000 ml 700 ml Result Diagram: 04/01/17 0434 04/01/17 0434 Imaging Last Impressions Abdomen/Pelvis CT 03/30/17 0814 Signed Impressions: Service Date/Time: Thursday, March 30, 2017 08:57 - CONCLUSION: The patient is reportedly 9 days status post left vascular inguinal surgery. There is significant fluid surrounding the common femoral artery with some overlying soft tissue inflammation and skin thickening. There may be very few small lymph nodes in the surrounding subcutaneous tissues. Without IV contrast I cannot rule out a pseudoaneurysm although I don't see obvious mass effect amongst the fluid collections. John Fritz MD Lower Extremity Ultrasound 03/30/17 0000 Signed Impressions: Service Date/Time: Thursday, March 30, 2017 10:03 - CONCLUSION: 1. Probable hemangioma in the left groin as above. There is no flow within this to suggest pseudoaneurysm. Negrito Cuba MD Objective Remarks GENERAL: This is a well-nourished, well-developed patient, in no apparent distress. SKIN: No rashes, ecchymoses. Left groin surgical incision erythematous, is very tender to palpation and there is mild purulent discharge. CARDIOVASCULAR: Regular rate and rhythm without murmurs, gallops, or rubs. RESPIRATORY: Clear to auscultation. Breath sounds equal bilaterally. No wheezes , rales, or rhonchi. GASTROINTESTINAL: Abdomen soft, non-tender, nondistended. No hepato-splenomegaly , or palpable masses. No guarding. MUSCULOSKELETAL: Extremities without clubbing, cyanosis, or edema. No joint tenderness, effusion, or edema noted. No calf tenderness. Negative Homans sign bilaterally. NEUROLOGICAL: Awake and alert. Cranial nerves II through XII intact. Motor and sensory grossly within normal limits. Five out of 5 muscle strength in all muscle groups. Normal speech. A/P Problem List: (1) Cellulitis ICD Code: L03.90 - Cellulitis, unspecified (2) Hypertension ICD Code: I10 - Essential (primary) hypertension Status: Chronic (3) Hyperlipemia ICD Code: E78.5 - Hyperlipidemia, unspecified (4) Diabetes mellitus ICD Code: E11.9 - Type 2 diabetes mellitus without complications Status: Chronic (5) Diastolic CHF due to valvular disease ICD Code: I38 - Endocarditis, valve unspecified; I50.30 - Unspecified diastolic (congestive) heart failure (6) PAD (peripheral artery disease) ICD Code: I73.9 - Peripheral vascular disease, unspecified Assessment and Plan (1) Cellulitis ICD Code: L03.90 - Cellulitis, unspecified Plan: The patient has cellulitis of the left groin area Continue IV vancomycin and IV Zosyn. Switch to levaquin and flagyl , lactinex at DC per CHRIS Gallagher. Blood cx are NTD, wound cx also NTD. Patient to return to the hospital if blood cultures end up positive per ID Dr Gallagher Pain control with oral Percocet and IV Dilaudid as needed. Consult infectious disease. Consult vascular surgery. Imaging reviewed no pseudoaneurysm (2) Hypertension ICD Code: I10 - Essential (primary) hypertension Status: Chronic Plan: [facility] home antihypertensive medications. Blood pressure seems to be stable. (3) Hyperlipemia ICD Code: E78.5 - Hyperlipidemia, unspecified Plan: Continue statin. (4) Diabetes mellitus ICD Code: E11.9 - Type 2 diabetes mellitus without complications Status: Chronic Plan: Continue insulin Novolin 70/30. Place on SSI with insulin NovoLog and monitor Accu-Cheks. Placed on hypoglycemia protocol. (5) Diastolic CHF due to valvular disease ICD Code: I38 - Endocarditis, valve unspecified; I50.30 - Unspecified diastolic (congestive) heart failure Plan: Seems to be stable. Not on diuretics at home. Continue metoprolol tartrate, aspirin. (6) PAD (peripheral artery disease) ICD Code: I73.9 - Peripheral vascular disease, unspecified Plan: Continue aspirin, Plavix. Consult vascular surgery. Assessment and Plan GI prophylaxis: SCDs, heparin subcutaneously. Code Status Full code Discussed Condition With Patient, nurse, Dr Elliott SESAY Discharged home in stable condition to follow up as OP with PCP and consultants as OP. Has an appointment with Dr Silver next week Problem Qualifiers (1) Cellulitis: Qualified Codes: L03.818 - Cellulitis of other sites (2) Hypertension: Qualified Codes: I10 - Essential (primary) hypertension (3) Hyperlipemia: Qualified Codes: E78.5 - Hyperlipidemia, unspecified (4) Diabetes mellitus: Qualified Codes: E11.59 - Type 2 diabetes mellitus with other circulatory complications; Z79.4 - local [employer] (current) use of insulin Sandhya Berkowitz MD Apr 01, 2017 13:45
--- NOTE | 2017-04-01 14:56 | HHI.IDPN ---
Subjective Subjective Remarks is a 66 y/o CM with PMHx of DM, HTN, diastolic CHF, aortic stenosis, CAD, hyperlipidemia, s/p porcine minimally invasive aortic valve replacement ( AVR) on 02/10/18. 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 Patient underwent is status post recent left iliofemoral bypass by Dr. Silver on 03/23/17. The patient presents complaining of increased left groin pain along with erythema and purulent discharge. Patient reports fever with chills at home and on presentation to hospital. He also states that had severe abdominal pain localized mostly in the epigastrium. He reports pain in LLQ and left flank radiating to back on admission. He thinks the back pain has subsided but the left side abdominal discomfort persists. The patient denies any Cardiopulm symptoms. Patient denies any Nausea, vomiting at present time. Denies any diarrhea or hematochezia. ID consulted for evaluation and Mment of cellulitis at site of surgery. Overnight events reviewed No fevers No rash No diarrhea Had a BM after stool regimen given wants to go home right now. Antibiotics Zosyn IV Vanco IV Lines Line sites with no e.o infection Past Medical History reviewed Allergies: Coded Allergies: clindamycin (Verified Allergy, Severe, NOT AVAILABLE -ENTERED PER MD COLIN, 03/30/17) patient states he had liver damage from this morphine (Verified Allergy, Mild, Itching, 03/30/17) "Feels like ants crawling on me" Objective . Vital Signs Date Time Temp Pulse Resp B/P (MAP) Pulse Ox O2 Delivery O2 Flow Rate FiO2 04/01/17 12:29 97.7 65 18 135/81 (99) 99 04/01/17 08:20 98.0 64 18 133/82 (99) 96 04/01/17 05:29 98.4 72 17 127/72 (90) 98 03/31/17 23:40 18 03/31/17 22:50 98.0 69 16 122/63 (82) 99 03/31/17 19:49 98.2 72 16 136/71 (92) 98 03/31/17 16:00 97.8 66 18 137/77 (97) 98 . Laboratory Tests Test 03/31/17 10:41 04/01/17 04:34 White Blood Count 13.7 TH/MM3 11.5 TH/MM3 Red Blood Count 4.22 MIL/MM3 3.85 MIL/MM3 Hemoglobin 12.6 GM/DL 11.5 GM/DL Hematocrit 38.5 % 34.9 % Mean Corpuscular Volume 91.1 FL 90.7 FL Mean Corpuscular Hemoglobin 29.8 PG 30.0 PG Mean Corpuscular Hemoglobin Concent 32.7 % 33.1 % Red Cell Distribution Width 14.7 % 14.8 % Platelet Count 265 TH/MM3 257 TH/MM3 Mean Platelet Volume 7.2 FL 7.4 FL Neutrophils (%) (Auto) 84.1 % 78.5 % Lymphocytes (%) (Auto) 7.4 % 11.4 % Monocytes (%) (Auto) 7.7 % 8.8 % Eosinophils (%) (Auto) 0.6 % 1.1 % Basophils (%) (Auto) 0.2 % 0.2 % Neutrophils # (Auto) 11.5 TH/MM3 9.1 TH/MM3 Lymphocytes # (Auto) 1.0 TH/MM3 1.3 TH/MM3 Monocytes # (Auto) 1.1 TH/MM3 1.0 TH/MM3 Eosinophils # (Auto) 0.1 TH/MM3 0.1 TH/MM3 Basophils # (Auto) 0.0 TH/MM3 0.0 TH/MM3 CBC Comment DIFF FINAL DIFF FINAL Differential Comment Laboratory Tests Test 03/31/17 06:35 03/31/17 10:59 04/01/17 04:34 Blood Urea Nitrogen 13 MG/DL 17 MG/DL Creatinine 1.23 MG/DL 1.10 MG/DL Random Glucose 162 MG/DL 186 MG/DL Total Protein 6.9 GM/DL Albumin 2.7 GM/DL Calcium Level 9.0 MG/DL 8.3 MG/DL Alkaline Phosphatase 69 U/L Aspartate Amino Transf (AST/SGOT) 4 U/L Alanine Aminotransferase (ALT/SGPT) 15 U/L Total Bilirubin 0.6 MG/DL Sodium Level 137 MEQ/L 140 MEQ/L Potassium Level 3.7 MEQ/L 3.5 MEQ/L Chloride Level 104 MEQ/L 108 MEQ/L Carbon Dioxide Level 26.3 MEQ/L 25.3 MEQ/L Anion Gap 7 MEQ/L 7 MEQ/L Estimat Glomerular Filtration Rate 59 ML/MIN 67 ML/MIN C-Reactive Protein 16.00 MG/DL Microbiology Date/Time Source Procedure Growth Status 03/31/17 10:41 Blood Peripheral Aerobic Blood Culture - Preliminary NO GROWTH IN 1 DAY Resulted 03/31/17 10:41 Blood Peripheral Anaerobic Blood Culture - Preliminary NO GROWTH IN 1 DAY Resulted 03/31/17 10:37 Blood Peripheral Aerobic Blood Culture - Preliminary NO GROWTH IN 1 DAY Resulted 03/31/17 10:37 Blood Peripheral Anaerobic Blood Culture - Preliminary NO GROWTH IN 1 DAY Resulted 03/31/17 03:50 Wound Groin Gram Stain - Final Resulted 03/31/17 03:50 Wound Groin Wound Culture Pending Resulted Imaging Last Impressions Abdomen/Pelvis CT 03/30/17 0814 Signed Impressions: Service Date/Time: Thursday, March 30, 2017 08:57 - CONCLUSION: The patient is reportedly 9 days status post left vascular inguinal surgery. There is significant fluid surrounding the common femoral artery with some overlying soft tissue inflammation and skin thickening. There may be very few small lymph nodes in the surrounding subcutaneous tissues. Without IV contrast I cannot rule out a pseudoaneurysm although I don't see obvious mass effect amongst the fluid collections. John Fritz MD Lower Extremity Ultrasound 03/30/17 0000 Signed Impressions: Service Date/Time: Thursday, March 30, 2017 10:03 - CONCLUSION: 1. Probable hemangioma in the left groin as above. There is no flow within this to suggest pseudoaneurysm. Negrito Cuba MD Physical Exam GENERAL: This is a well-nourished, well-developed patient, in no apparent distress. SKIN: No rashes, ecchymoses or lesions. Cool and dry. HEAD: Atraumatic. Normocephalic. No temporal or scalp tenderness. EYES: Pupils equal round and reactive. Extraocular motions intact. No scleral icterus. No injection or drainage. ENT: Nose without bleeding, purulent drainage or septal hematoma. Throat without erythema, tonsillar hypertrophy or exudate. Uvula midline. Airway patent. NECK: Trachea midline. Supple, nontender, no meningeal signs. CARDIOVASCULAR: Regular rate and rhythm. RESPIRATORY: Clear to auscultation. Breath sounds equal bilaterally. No wheezes , rales, or rhonchi. GASTROINTESTINAL: Abdomen soft, non-tender, nondistended. Left LQ tenderness, no rebound or rigidity. MUSCULOSKELETAL: Extremities without clubbing, cyanosis, or edema. NEUROLOGICAL: Awake and alert. Non focal exam. Left groin with linear surgical scar overall improved since last seen. Less erythema, tenderness. IV line sites with no e.o infection. Assessment & Plan Remarks Left groin cellulitis. s/p porcine minimally invasive aortic valve replacement (AVR) on 02/10/18. s/p left iliofemoral bypass by Dr. Silver on 03/23/17. Recs DC Zosyn IV DC Vanco IV (target 10-15) DC home on Levaquin and Flagyl oral for 10 more days. d/w patient blood cultures only negative at 24 hrs. If blood cultures come back positive patient should come back to [place] for further endovascular workup. Also counseled him to come back to hospital if worsening wound infection or fevers, chills etc s/o persistent infection. Counseled about Cdiff and importance of early testing. Probiotic since pt on antibiotics. d/w RN to make sure patient changes undergarments daily and keeps area clean. Also wear loose cotton clothes and avoid abrasion of the surgical site area. Follow cultures Follow clinically. d/w Patient informs me that he is aware of fluid collection and was informed by that this is expected change post op. I attempted to call the BOOKKEEPING MANAGER but no response. Patient has a follow up appt next th at office. Will sign off please call back if any change in clinical condition or questions. Tami Gallagher MD Apr 01, 2017 14:56
[2017-04-01] MEDS ORDERED: LEVOFLOXACIN 750 MG TAB PO SCH (15:00)
[2017-04-01] MEDS ORDERED: metroNIDAZOLE 500 MG TAB PO SCH (15:00)
[2017-04-01] MEDS ORDERED: LEVA750T9 PO (15:07)
[2017-04-01] MEDS ORDERED: METR-1 PO (15:08)
[2017-04-01] MEDS ORDERED: LACTCHW3 CHEW (15:09)
[2017-04-01] MEDS ORDERED: OXYC1TAB63 PO (16:11)
--- NOTE | 2017-04-01 16:11 | HHI.DCPOC ---
Discharge Care Plan Diagnosis: (1) Cellulitis Goals to Promote Your Health * To prevent worsening of your condition and complications * To maintain your health at the optimal level Directions to Meet Your Goals Take your medications as prescribed Follow your dietary instruction Follow activity as directed Keep your appointments as scheduled Take your immunizations and boosters as scheduled If your symptoms worsen call your PCP, if no PCP go to Urgent Care Center or Emergency Room Smoking is Dangerous to Your Health. Avoid second hand smoke Call the 24-hour hour crisis hotline for domestic abuse at Sweetie Paz Apr 01, 2017 16:11
--- NOTE | 2017-04-01 16:14 | HHI.DS ---
Discharge Summary Admission Date Mar 31, 2017 at 11:09 Discharge Date: Apr 01, 2017 Admitting Diagnosis LEFT FEMORAL INCISION CELLULITIS (1) Cellulitis ICD Code: L03.90 - Cellulitis, unspecified (2) Hypertension ICD Code: I10 - Essential (primary) hypertension Status: Chronic (3) Hyperlipemia ICD Code: E78.5 - Hyperlipidemia, unspecified (4) Diabetes mellitus ICD Code: E11.9 - Type 2 diabetes mellitus without complications Status: Chronic (5) Diastolic CHF due to valvular disease ICD Code: I38 - Endocarditis, valve unspecified; I50.30 - Unspecified diastolic (congestive) heart failure (6) PAD (peripheral artery disease) ICD Code: I73.9 - Peripheral vascular disease, unspecified Procedures none Brief History - From Admission This is 66-year-old male with past medical history significant for diabetes, hypertension, diastolic CHF, aortic stenosis, CAD, hyperlipidemia, status post valve replacement. The patient is status post recent left iliofemoral bypass for leg claudication by Dr. Silver on 03/23/17. The patient presents complaining of increased left groin pain along with erythema and purulent discharge. The patient denies any fevers or chills. He also states that had severe abdominal pain localized mostly in the epigastrium which by now has resolved. The patient denies any chest pain, shortness of breath, dysuria, diarrhea, nausea or vomiting. CBC/BMP: 04/01/17 0434 04/01/17 0434 Significant Findings Laboratory Tests Test 03/30/17 08:15 03/31/17 06:35 03/31/17 10:41 03/31/17 10:59 White Blood Count 21.0 TH/MM3 (4.0-11.0) 13.7 TH/MM3 (4.0-11.0) Red Blood Count 4.48 MIL/MM3 (4.50-5.90) 4.22 MIL/MM3 (4.50-5.90) Neutrophils (%) (Auto) 88.6 % (16.0-70.0) 84.1 % (16.0-70.0) Lymphocytes (%) (Auto) 4.2 % (9.0-44.0) 7.4 % (9.0-44.0) Neutrophils # (Auto) 18.6 TH/MM3 (1.8-7.7) 11.5 TH/MM3 (1.8-7.7) Lymphocytes # (Auto) 0.9 TH/MM3 (1.0-4.8) Monocytes # (Auto) 1.4 TH/MM3 (0-0.9) 1.1 TH/MM3 (0-0.9) Random Glucose 148 MG/DL (74-106) 162 MG/DL (74-106) Chloride Level 109 MEQ/L (98-107) Estimat Glomerular Filtration Rate 61 ML/MIN (>89) 59 ML/MIN (>89) Albumin 2.7 GM/DL (3.4-5.0) Aspartate Amino Transf (AST/SGOT) 4 U/L (15-37) Hemoglobin 12.6 GM/DL (13.0-17.0) Hematocrit 38.5 % (39.0-51.0) C-Reactive Protein 16.00 MG/DL (0.00-0.30) Test 04/01/17 04:34 White Blood Count 11.5 TH/MM3 (4.0-11.0) Red Blood Count 3.85 MIL/MM3 (4.50-5.90) Hemoglobin 11.5 GM/DL (13.0-17.0) Hematocrit 34.9 % (39.0-51.0) Neutrophils (%) (Auto) 78.5 % (16.0-70.0) Monocytes (%) (Auto) 8.8 % (0.0-8.0) Neutrophils # (Auto) 9.1 TH/MM3 (1.8-7.7) Monocytes # (Auto) 1.0 TH/MM3 (0-0.9) Random Glucose 186 MG/DL (74-106) Calcium Level 8.3 MG/DL (8.5-10.1) Chloride Level 108 MEQ/L (98-107) Estimat Glomerular Filtration Rate 67 ML/MIN (>89) Imaging Last Impressions Abdomen/Pelvis CT 03/30/17 0814 Signed Impressions: Service Date/Time: Thursday, March 30, 2017 08:57 - CONCLUSION: The patient is reportedly 9 days status post left vascular inguinal surgery. There is significant fluid surrounding the common femoral artery with some overlying soft tissue inflammation and skin thickening. There may be very few small lymph nodes in the surrounding subcutaneous tissues. Without IV contrast I cannot rule out a pseudoaneurysm although I don't see obvious mass effect amongst the fluid collections. John Fritz MD Lower Extremity Ultrasound 03/30/17 0000 Signed Impressions: Service Date/Time: Thursday, March 30, 2017 10:03 - CONCLUSION: 1. Probable hemangioma in the left groin as above. There is no flow within this to suggest pseudoaneurysm. Negrito Cuba MD PE at Discharge GENERAL: This is a well-nourished, well-developed patient, in no apparent distress. SKIN: No rashes, ecchymoses. Left groin surgical incision no drainage, erythema improved significantly. CARDIOVASCULAR: Regular rate and rhythm without murmurs, gallops, or rubs. RESPIRATORY: Clear to auscultation. Breath sounds equal bilaterally. No wheezes , rales, or rhonchi. GASTROINTESTINAL: Abdomen soft, non-tender, nondistended. No hepato-splenomegaly , or palpable masses. No guarding. MUSCULOSKELETAL: Extremities without clubbing, cyanosis, or edema. No joint tenderness, effusion, or edema noted. No calf tenderness. Negative Homans sign bilaterally. NEUROLOGICAL: Awake and alert. Cranial nerves II through XII intact. Motor and sensory grossly within normal limits. Five out of 5 muscle strength in all muscle groups. Normal speech. Hospital Course (1) Cellulitis ICD Code: L03.90 - Cellulitis, unspecified Plan: The patient has cellulitis of the left groin area Continue IV vancomycin and IV Zosyn. Switch to levaquin and flagyl , lactinex at DC per CHRIS Gallagher. Blood cx are NTD, wound cx also NTD. Patient to return to the hospital if blood cultures end up positive per ID Dr Gallagher Pain control with oral Percocet and IV Dilaudid as needed. Consult infectious disease. Consult vascular surgery. Imaging reviewed no pseudoaneurysm (2) Hypertension ICD Code: I10 - Essential (primary) hypertension Status: Chronic Plan: [place] home antihypertensive medications. Blood pressure seems to be stable. (3) Hyperlipemia ICD Code: E78.5 - Hyperlipidemia, unspecified Plan: Continue statin. (4) Diabetes mellitus ICD Code: E11.9 - Type 2 diabetes mellitus without complications Status: Chronic Plan: Continue insulin Novolin 70/30. Place on SSI with insulin NovoLog and monitor Accu-Cheks. Placed on hypoglycemia protocol. (5) Diastolic CHF due to valvular disease ICD Code: I38 - Endocarditis, valve unspecified; I50.30 - Unspecified diastolic (congestive) heart failure Plan: Seems to be stable. Not on diuretics at home. Continue metoprolol tartrate, aspirin. (6) PAD (peripheral artery disease) ICD Code: I73.9 - Peripheral vascular disease, unspecified Plan: Continue aspirin, Plavix. Consult vascular surgery. Assessment and Plan GI prophylaxis: SCDs, heparin subcutaneously. Code Status Full code Discussed Condition With Patient, nurse, Dr Elliott SESAY Discharged home in stable condition to follow up as OP with PCP and consultants as OP. Has an appointment with Dr Silver next week Pt Condition on Discharge: Stable Discharge Disposition: Discharge Home Discharge Time: > 30 minutes Discharge Instructions DIET: Follow Instructions for: Heart Healthy Diet, Diabetic Diet Follow up Referrals: Appointment for Follow Up - 3-5 Days @ Vascular surgery with PCP Follow-up - 2-3 Days New Medications: Lactobacillus Acidophilus (Lactinex) 1 Chew 1 TAB CHEW BID for Nutritional Supplement for 20 Days, #40 TAB 0 Refills Metronidazole (Flagyl) 500 Mg Tab 500 MG PO TID for Infection for 10 Days, TAB 0 Refills Levofloxacin (Levaquin) 750 Mg Tablet 750 MG PO DAILY for Infection for 10 Days, #10 CAPLET Do not consume milk or milk products, antacids or acid suppressing meds with Levaquin for an hour before or after Levaquin. Changed Medications: Oxycodone HCl/Acetaminophen (Oxycodone-Acetaminophen 5-325) 5 Mg-325 Mg Tablet 1 TAB PO Q6HR PRN for pain management , #25 TAB 0 Refills (Changed from: 40) Continued Medications: Amiodarone (Amiodarone) 200 Mg Tab 200 MG PO DAILY for Regulate Heart Beat, TAB [address] (Aspirin DR) 81 Mg Tabdr 81 MG PO DAILY, TAB 0 Refills Atorvastatin (Atorvastatin) 40 Mg Tab 40 MG PO HS for Cholesterol Management, #30 TAB 0 Refills Clopidogrel (Plavix) 75 Mg Tab 75 MG PO DAILY for Blood Clot Prevention, #30 TAB 0 Refills Docusate Sodium (Dok) 100 Mg Cap 100 MG PO BID for Constipation, #60 CAP 0 Refills Fenofibrate (Fenofibrate) 160 Mg Tab 160 MG PO DAILY, #30 TAB 0 Refills Insulin Human Isophane-Regular 70-30 Inj (Novolin 70-30 Inj) 1,000 Unit/10 Ml Vial 60 UNITS SQ BIDAC for Blood Sugar Management, ML 0 Refills dose adjusts based on blood sugar results. he does not take if sugar is below 100 Metoprolol Tartrate (Metoprolol Tartrate) 25 Mg Tab 25 MG PO Q12HR for Blood Pressure Management, #60 TAB 2 Refills Multiple Vitamins W/ Minerals (Thera M Plus) 1 Tab 1 TAB PO DAILY for multi vitamin, #30 TAB 2 Refills Ranitidine (Ranitidine) 150 Mg Tab 150 MG PO DAILY for Heartburn Management, #30 TAB 0 Refills Sandhya Berkowitz MD Apr 01, 2017 16:14
[2017-04-01] MEDS: ACETAMINOPHEN 325 MG TAB PO PRN (16:58)
[2017-04-02] MEDS ORDERED: PHARMACY ORDERED LAB ONE (08:45)
--- NOTE | 2017-04-05 07:56 | HHI.PR ---
Addendum to Inpatient Note Addendum Reason: Additional Documentation Additional Information Received a call from as we had decided to follow up on blood cultures. Informed him blood cultures are negative at 4 days. Wound cultures were superficial and growing strep and anaerobes. On questioning he informs me of the following: No fevers No rash No diarrhea Wound appears healing well but noticed some oozing off and on at the site. Erythema remarkably improved. I asked him to call Dr. Shu Eckert office and follow up this week in addition to office. Dr.Reba Eckert d/w the case details. CT findings and cultures and clinical picture. She will see him in follow up in clinic. Tami Gallagher MD Apr 05, 2017 07:56
== END 2017-04-01 18:02 | disposition home or self-care (01) | DRG 863 ==
LOC: NEPE 07:21 → NEDA 12:31 → NEPGCP 17:50 → OBSVTOIN 03-31 11:09
PROVIDERS: ADMIT Hospitalist; ATTEND Hospitalist
DX: T81.4XXA Infection following a procedure, initial encounter (principal); I11.0 Hypertensive heart disease with heart failure; E11.51 Type 2 diabetes mellitus with diabetic peripheral angiopathy without gangrene; I50.30 Unspecified diastolic (congestive) heart failure; L03.314 Cellulitis of groin; B95.1 Streptococcus, group B, as the cause of diseases classified elsewhere; B96.89 Other specified bacterial agents as the cause of diseases classified elsewhere; I25.10 Atherosclerotic heart disease of native coronary artery without angina pectoris; E78.5 Hyperlipidemia, unspecified; K21.9 Gastro-esophageal reflux disease without esophagitis; I25.2 Old myocardial infarction; Z85.820 Personal history of malignant melanoma of skin; Z86.73 Personal history of transient ischemic attack (TIA), and cerebral infarction without residual deficits; Z79.4 Long term (current) use of insulin; Z95.2 Presence of prosthetic heart valve; Z88.1 Allergy status to other antibiotic agents; Z88.5 Allergy status to narcotic agent; Y83.2 Surgical operation with anastomosis, bypass or graft as the cause of abnormal reaction of the patient, or of later complication, without mention of misadventure at the time of the procedure
CPT/HCPCS: 74176; 80048; 80053; 82948; 83690; 85025; 86140; 86403; 87040; 87070; 87185; 87205; 93926; 96365; 96366; 96367; 96372; 96375; 96376; G0378; G8987-GP; G8988-GP; J1170; J1644; J1815; J2543; J3370; J7040; J7050